=== PATIENT | female | born 1980 | race Caucasian/White ===

== ENCOUNTER 2017-04-26 16:15 | Emergency (ER) | payer OTHER ==
[~2017-04-26] VITALS: Ht 175.3 cm; Wt 24.8 kg
[~2017-04-26 16:15] MED LIST: AMIT100T2 PO; ATV/1 SL; BUSP5TAB59 PO; DABI150C PO; EPP3/2 INJ; FEXO1TAB49 PO; FLVHFA110 INH; GABA-113 PO; HYDR-3785 PO; ONDA4TAB46 PO; TRAM-10 PO; XPNIN INH; ZNTT/150 PO
[2017-04-26 16:23] VITALS: TEMP 36.9; Ht 175.3 cm; Wt 24.8 kg
--- NOTE | 2017-04-26 17:54 | DIAGNOSTIC IMAGING REPORT ---
LEFT VENOUS DOPPLER UPR EXT UNIL HISTORY: Left arm pain. Edema. left arm redness, swelling, hx DVT COMPARISON STUDY: None. FINDINGS: The internal jugular vein is patent. There is normal flow within the subclavian vein. There is normal flow and compressibility within the left axillary, basilic, brachial, radial, ulnar, and visualized cephalic veins. IMPRESSION: No DVT within the upper extremity. The above report was generated using voice recognition software. It may contain grammatical, syntax or spelling errors. Electronically signed by: Phillip Oneill M.D. 04/26/2017 5:53 PM Dictated Date/Time: 04/26/2017 5:53 PM
--- NOTE | 2017-04-26 18:14 | EMERGENCY ROOM VISIT NOTE ---
ED Visit Note First contact with patient: 16:32 I did evaluate and examine this patient myself. I did guide management for the patient. I agree with the APC's assessment as discussed. Please see the APC's dictation for further details. I did independently review the Doppler ultrasound. There is no evidence of DVT. The rash is erythematous and easily blanchable. It is nontender or warm to touch. She was advised follow closely with her doctor for further evaluation.
--- NOTE | 2017-04-26 18:23 | EMERGENCY ROOM VISIT NOTE ---
History First contact with patient: 16:32 Chief Complaint: ARM PAIN Stated Complaint: SWELLING, AND RED STREAKS ON LEFT ARM History of Present Illness The patient is a 36 year old female who presents to the Emergency Room with complaints of swelling and redness of the left arm. The patient states that she first noticed the redness of the arm this morning when waking up. She states there was no pain initially, but as she went through the day she noticed some pain in the arm. She also reports some swelling. She denies any injury or abrasion to the arm. The patient does have a history of blood clots and takes Pradaxa daily due to factor V Leiden deficiency. She denies any recent travel or control use. She does not smoke. She denies any fevers, chest pain or shortness of breath. Review of Systems A complete 10 point review of systems was reviewed with the patient with pertinent positives and negatives as per history of present illness. All else were negative. Past Medical/Surgical History Medical Problems: (1) Acute deep vein thrombosis (DVT) of popliteal vein of left lower extremity (2) Fibromyalgia (3) Negative personal history for kidney stones (4) Pulmonary embolism Surgical Problems: (1) H/O oophorectomy (2) History of spinal fusion (3) Hx of appendectomy Family History Cancer Diabetes mellitus Heart disease Hypertension Negatve family history for kidney stones Social History Smoking Status: Never Smoker Alcohol Use: none Drug Use: none Marital Status: Housing Status: lives with significant other Occupation Status: unemployed, disabled Current/Historical Medications Scheduled Amitriptyline Hcl (Elavil), 50 MG PO QID Buspirone Hcl (Buspirone Hcl), 2 TABS PO TID Dabigatran Etexilate Mesylate (Pradaxa), 150 MG PO BID Gabapentin (Neurontin), 600 MG PO TID Scheduled PRN Epinephrine (Epipen 2-Derek), 0.3 MG INJ UD PRN for ALLERGIC REACTION Fexofenadine Hcl (Daphne Allergy), 180 MG PO DAILY PRN for Allergies Fluticasone Propionate (Flovent Hfa), 2 PUFFS INH BID PRN for Allergies Hydroxyzine Hcl (Atarax), 50 MG PO DAILY PRN for Itching Levalbuterol Tartrate (Xopenex Hfa), 2 PUFFS INH UD PRN for Shortness of Breath Lorazepam (Ativan), 1 MG SL for Anxiety/Insomnia Ondansetron Hcl (Zofran), 4 MG PO Q6H PRN for Nausea Ranitidine (Zantac), 150 MG PO DAILY PRN for ALLERGIC REACTION Tramadol (Ultram), 50 MG PO QID PRN for Pain Allergies Coded Allergies: Doxycycline (Verified Allergy, Unknown, Hives and nausea., 04/26/17) Doxycycline Hyclate Nitrofurantoin (Verified Allergy, Unknown, HIVES, 04/26/17) Sulfa Antibiotics (Verified Allergy, Unknown, ANAPHYLAXIS, 04/26/17) Physical Exam Vital Signs Date Time Temp Pulse Resp B/P (MAP) Pulse Ox O2 Delivery O2 Flow Rate FiO2 04/26/17 18:36 114 18 92/73 99 04/26/17 16:23 36.9 128 20 107/71 97 Room Air Physical Exam VITALS: Vitals are noted on the nurse's note and reviewed by myself. Vital signs stable. GENERAL: This is a 36-year-old female, in no acute distress, nondiaphoretic, well-developed well-nourished. SKIN: There is an erythematous, reticular rash to the medial aspect of the left arm. There is no warmth to touch. There is no significant swelling. The rash is easily blanchable. HEART: Regular rate and rhythm without murmurs gallops or rubs. LUNGS: Clear to auscultation bilaterally without wheezes, rales or rhonchi. MUSCULOSKELETAL: Full range of motion of the left arm. NEURO: Patient was alert and oriented to person place and time. Medical Decision & Procedures ER Provider Diagnostic Interpretation: LEFT VENOUS DOPPLER UPR EXT UNIL HISTORY: Left arm pain. Edema. left arm redness, swelling, hx DVT COMPARISON STUDY: None. FINDINGS: The internal jugular vein is patent. There is normal flow within the subclavian vein. There is normal flow and compressibility within the left axillary, basilic, brachial, radial, ulnar, and visualized cephalic veins. IMPRESSION: No DVT within the upper extremity. Medical Decision Differential diagnosis includes DVT, superficial thrombosis, allergic reaction, contact dermatitis, among others. The patient was evaluated as above. Ultrasound of the left arm was performed and showed no DVT. The cause of the rash is unclear. It is blanchable. It does not appear to be allergic in nature. The patient was instructed to observe the rash and follow up with her primary care provider if it is persistent. The patient was tachycardic throughout today's stay, but this appears to be her baseline based on other visits. She verbalized understanding of my assessment and treatment plan and was discharged home in good condition. The patient was independently evaluated by Dr. Stephens, ED attending physician, who agreed with my assessment and treatment plan. Medication reconciliation: I attest that I have personally reviewed the patient 's current medication list. Blood pressure screening: Patient was found to have normal blood pressure on screening and does not require follow-up. Impression Primary Impression: Left arm pain Departure Information Dispostion Home / Self-Care Condition GOOD Referrals Roberto Han M.D. (PCP) Patient Instructions My [facility] Additional Instructions Ultrasound today was negative for any blood clots in the arm. Elevate the arm for any swelling/pain. For pain control, you can use the following [id number] medicines (if >12 yo): - Regular strength (325mg/tab) Tylenol (acetaminophen) 2 tabs every 4-6 hours as needed. Do not exceed 12 tablets in a 24 hour period. Avoid taking more than 4 grams (4000 mg) of Tylenol per day. This includes any other sources of acetaminophen you may take on a regular basis. - Regular strength (200 mg/tab) Advil (ibuprofen) 1-2 tabs every 4-6 hours as needed. Do not exceed a dose of 3200 mg per day. Return or follow-up with her primary care provider for any worsening of the rash or any other new/concerning symptoms.
[2017-04-26 18:36] VITALS: BP 92/73; PULSE 114; O2SAT 99
== END 2017-04-26 18:37 | disposition home or self-care (01) ==
LOC: C.EDB 16:17 → C.EDD 18:37
DX: M79.602 Pain in left arm (principal); Z86.718 Personal history of other venous thrombosis and embolism; M79.7 Fibromyalgia; Z86.711 Personal history of pulmonary embolism; Z80.9 Family history of malignant neoplasm, unspecified; Z83.3 Family history of diabetes mellitus; Z82.49 Family history of ischemic heart disease and other diseases of the circulatory system; Z79.899 Other long term (current) drug therapy

== ENCOUNTER 2017-05-01 18:27 | Emergency (ER) | payer OTHER ==
[~2017-05-01] VITALS: Ht 175.3 cm; Wt 122.1 kg
[2017-05-01 18:30] VITALS: TEMP 36.9; Ht 175.3 cm; Wt 122.1 kg
[2017-05-01] MEDS ORDERED: HYDR-3126 PO (18:59)
[2017-05-01] MEDS ORDERED: FLVHFA110 INH (18:59)
--- NOTE | 2017-05-01 19:18 | EMERGENCY ROOM VISIT NOTE ---
History Report prepared by [place]cca: Jelly Vick Under the Supervision of: Dr. Ramsey Restrepo D.O. First contact with patient: 18:42 Chief Complaint: NEURO SYMPTOMS Stated Complaint: PART OF TONGUE IS NUMB AND MOVED TO BOTTOM LIP Nursing Triage Summary: pt reports her tongue was numb a couple days ago now her lip is numb. has hx of blood clots. History of Present Illness The patient is a 36 year old female who presents to the Emergency Room with complaints of persistent tongue numbness starting 3 days ago. This morning she noticed that she had numbness in her left lower lip with tingling. She denies any chest pain or SOB. She had a blood clot over 1 year ago and has been on Pradaxa since. She has been taking her medications as directed. She did miss a dose 2 days ago. She notes that she had a root canal 4 days ago. She currently has a temporary filling in. Source of History: patient Onset: 3 days ago Position: tongue Quality: numbness Timing: other (persistent) Associated Symptoms: No chest pain, No SOB Note: Pt reports numbness in left lower lip. Review of Systems See HPI for pertinent positives & negatives. A total of 10 systems reviewed and were otherwise negative. Past Medical & Surgical Medical Problems: (1) Acute deep vein thrombosis (DVT) of popliteal vein of left lower extremity (2) Fibromyalgia (3) Negative personal history for kidney stones (4) Pulmonary embolism Surgical Problems: (1) H/O oophorectomy (2) History of spinal fusion (3) Hx of appendectomy Family History Cancer Diabetes mellitus Heart disease Hypertension Negatve family history for kidney stones Social History Smoking Status: Never Smoker Alcohol Use: none Drug Use: none Marital Status: Housing Status: lives with significant other Occupation Status: unemployed, disabled Current/Historical Medications Scheduled Amitriptyline Hcl (Elavil), 100 MG PO BID Buspirone Hcl (Buspirone Hcl), 2 TABS PO TID Dabigatran Etexilate Mesylate (Pradaxa), 150 MG PO BID Gabapentin (Neurontin), 600 MG PO TID Scheduled PRN Epinephrine (Epipen 2-Derek), 0.3 MG INJ UD PRN for ALLERGIC REACTION Fexofenadine Hcl (Daphne Allergy), 180 MG PO DAILY PRN for Allergies Fluticasone Propionate (Flovent Hfa), 2 PUFFS INH BID PRN for Allergies Fluticasone Propionate (Flovent Hfa), 2 PUFFS INH UD PRN for Shortness of Breath Hydroxyzine Hcl (Atarax), 50 MG PO DAILY PRN for Itching Lorazepam (Ativan), 1 MG SL for Anxiety/Insomnia Ondansetron Hcl (Zofran), 4 MG PO Q6H PRN for Nausea Ranitidine (Zantac), 150 MG PO DAILY PRN for ALLERGIC REACTION Tramadol (Ultram), 50 MG PO QID PRN for Pain Allergies Coded Allergies: Doxycycline (Verified Allergy, Unknown, Hives and nausea., 05/01/17) Doxycycline Hyclate Nitrofurantoin (Verified Allergy, Unknown, HIVES, 05/01/17) Sulfa Antibiotics (Verified Allergy, Unknown, ANAPHYLAXIS, 05/01/17) Physical Exam Vital Signs Date Time Temp Pulse Resp B/P (MAP) Pulse Ox O2 Delivery O2 Flow Rate FiO2 05/01/17 18:30 36.9 140 18 111/79 95 Room Air Physical Exam CONSTITUTIONAL/VITAL SIGNS: Reviewed / noted above. GENERAL: Non-toxic in appearance. INTEGUMENTARY: Warm, dry, and [place]. HEAD: Normocephalic. EYES: without scleral icterus or trauma. ENT/OROPHARYNX: clear and moist. LYMPHADENOPATHY/NECK: Is supple without lymphadenopathy or meningismus. RESPIRATORY: Lungs clear and equal. CARDIOVASCULAR: Tachycardic rate and regular rhythm. GI/ABDOMEN: Soft and nontender. No organomegaly or pulsatile mass. No rebound or guarding. Normal bowel sounds. EXTREMITIES: Warm and well perfused. BACK: No CVA tenderness. NEUROLOGICAL: Intact without focal deficits. PSYCHIATRIC: normal affect. MUSCULOSKELETAL: Normally developed with good muscle tone. Medical Decision & Procedures ECG Indication: tachycardia Rate (beats per minute): 121 Rhythm: sinus tachycardia Findings: no ectopy, other (no acute injury) ED Course 1842: Previous medical records were reviewed. The patient was evaluated in room C2B. A complete history and physical examination was performed. 1918: On reevaluation, the patient is resting comfortably. I discussed the results and findings with the patient. She verbalized agreement of the treatment plan. She was discharged home. Medical Decision Differential includes acute coronary syndrome, myocardial infarction, CVA, TIA, anemia, infection, pneumonia, UTI, pyelonephritis, poor nutrition, dehydration, electrolyte disturbance,hypoglycemia. This is a 36-year-old female who presents to the ED with a chief complaint of a numb or tingling feeling in the left anterior tip of the tongue as well as the left lower aspect of the lip. She states that it involves a small section of skin about 1 cm -2 cm in width from the left lower lip down to an area near her chin about 3 cm in length. The patient reports having had a root canal 2 weeks ago. She is unsure if the symptoms are related to that. She has had the symptoms for about 3 days after drinking some hot coffee. She thought that her symptoms might of been related to that. Because she has a history of DVT, she was concerned about stroke. She is currently taking Pradaxa daily (missed one dose a couple days ago). She does report having had an echocardiogram in the past and denies ever being told she has a PFO or other opening between the left and right side of the heart. The patient denies any other symptoms. The nursing stroke score was 0. The patient was tachycardic on exam. She denies having any chest pains or shortness of breath. She does report that her typical heart rate runs around 100-110. She reports that she is a little anxious and this is likely the reason for her tachycardia. The patient has no additional complaints other than that described. She denies any fevers or recent illness. No facial swelling or dental discomfort. A twelve-lead EKG shows a sinus tach at a rate of 121. There is no acute injury or ectopy. The patient is felt to be stable for discharge. I did not feel the patient is having a stroke. There is no evidence of infection or Aceves's palsy. The patient's going to monitor her symptoms and return should things get worse. HR just prior to discharge was 108. Medication Reconcilliation Current Medication List: was personally reviewed by me Blood Pressure Screening Patient's blood pressure: Normal blood pressure Blood pressure disposition: Did not require urgent referral Impression Primary Impression: Facial paresthesia Additional Impression: Tachycardia Scribe Attestation The scribe's documentation has been prepared under my direction and personally reviewed by me in its entirety. I confirm that the note above accurately reflects all work, treatment, procedures, and medical decision making performed by me. Departure Information Dispostion Home / Self-Care Referrals No Doctor, Assigned (PCP) Patient Instructions My [facility] Additional Instructions Return to the emergency department should you develop worsening or new symptoms. Follow-up with your doctor for further care and evaluation in 1-6 days if symptoms persist/worsen. Return to the emergency department for worsening or new symptoms or any concerns. You have been examined and treated today on an emergency basis only. This is not a substitute for, or an effort to provide, complete comprehensive medical care. It is impossible to recognize and treat all injuries or illnesses in a single emergency department visit. It is therefore important that you follow up closely with your doctor. Call as soon as possible for an appointment. Problem Qualifiers
[2017-05-01 19:31] VITALS: BP 101/78; PULSE 118; O2SAT 96
== END 2017-05-01 19:32 | disposition home or self-care (01) ==
LOC: C.EDB 18:28 → C.EDC 19:32
DX: R20.0 Anesthesia of skin (principal); R00.0 Tachycardia, unspecified; M79.7 Fibromyalgia; Z79.01 Long term (current) use of anticoagulants; Z79.899 Other long term (current) drug therapy; Z98.890 Other specified postprocedural states; Z86.711 Personal history of pulmonary embolism; Z86.718 Personal history of other venous thrombosis and embolism; Z82.49 Family history of ischemic heart disease and other diseases of the circulatory system; Z83.3 Family history of diabetes mellitus

== ENCOUNTER 2018-02-27 22:00 | Emergency (ER) | payer OTHER ==
[~2018-02-27] VITALS: Ht 175.3 cm; Wt 125.4 kg
[~2018-02-27 22:00] MED LIST changes: +EPP3/2 IM; -EPP3/2 INJ; +HYDR-3126 PO; -HYDR-3785 PO; +RANI150T85 PO; -XPNIN INH; -ZNTT/150 PO
[2018-02-27 22:06] VITALS: TEMP 36.8; Ht 175.3 cm; Wt 125.4 kg
[2018-02-27] MEDS ORDERED: ULT50 PO (22:48)
[2018-02-27] MEDS ORDERED: METO50TA17 PO (22:48)
[2018-02-27] MEDS ORDERED: METO50TA16 PO (22:48)
[2018-02-27] MEDS ORDERED: CEPH500C2 PO (22:48)
[2018-02-27] MEDS ORDERED: AMT100 PO (22:48)
[2018-02-27] MEDS ORDERED: LRS10 PO (22:48)
[2018-02-27] MEDS ORDERED: NRN600 PO (22:48)
[2018-02-27] MEDS ORDERED: FLVHFA220 INH (22:53)
[2018-02-27 23:08] LABS: BASO % 0.2 %; BASO ABS # 0.02 K/uL (0-0.2); EOS ABS # 0.09 K/uL (0-0.5); HEMATOCRIT 37.3 % (37-47); HEMOGLOBIN 12.8 g/dL (12.0-16.0); IG# 0.02 K/uL (0.00-0.02); LYMPH % 29.7 %; LYMPH ABS # 2.56 K/uL (1.2-3.4); MEAN CORPUSCULAR HEMOGLOBIN 30.2 pg (25-34); MEAN CORPUSCULAR HGB CONC 34.3 g/dl (32-36); MEAN PLATELET VOLUME 9.3 fL (7.4-10.4); MONO % 4.4 %; MONO ABS # 0.38 K/uL (0.11-0.59); NEUT % 64.5 %; NEUT ABS # 5.56 K/uL (1.4-6.5); PLATELET COUNT 244 K/uL (130-400); RED CELL DISTRIBUTION WIDTH CV 13.8 % (11.5-14.5); RED CELL DISTRIBUTION WIDTH SD 44.3 fL (36.4-46.3); WHITE BLOOD COUNT 8.63 K/uL (4.8-10.8)
[2018-02-27 23:09] LABS: ISTAT CREATININE 1.2 mg/dl (0.6-1.3); ISTAT IONIZED CALCIUM 1.16 mmol/l (1.12-1.32)
[2018-02-27 23:18] LABS: INR 0.9 (0.9-1.1); PTT PATIENT 26.1 SECONDS (21.0-31.0)
[2018-02-27 23:28] LABS: CALCIUM 8.5 mg/dl (8.5-10.1); CREATININE 1.17 mg/dl (0.60-1.20)
[2018-02-28] MEDS ORDERED: KETOROLAC TROMETHAMINE 30 MG/ML VIAL IV STA (02:03)
--- NOTE | 2018-02-28 02:34 | EMERGENCY ROOM VISIT NOTE ---
History Report prepared by Mecca: Jelly Vick Under the Supervision of: Dr. Otto Stephens M.D. First contact with patient: 22:11 Chief Complaint: SHORTNESS OF BREATH Stated Complaint: SOB,CHEST PAINS History of Present Illness The patient is a 37 year old female who presents to the Emergency Room with complaints of persistent SOB starting 2 hours ago. Her SOB started suddenly. She can feel that her heart is beating fast. She is having some left chest pain which started with her SOB. The pain goes up into her neck. She describes the pain as sharp and it does not worsen with deep breaths. She denies any leg swelling, fever, vomiting, or cough. She has a history of factor V Leiden and has had PE and DVT in the past. She was on Pradaxa, but is currently not on any blood thinners. It was stopped by her utility tech. She was on control at the time she had the previous blood clots. She is no longer on control. She denies any chance of . She does not smoke. She went to [place] today, but they stopped multiple times on the way. She is currently on Keflex for a UTI. She has not noticed any swelling or pain to her legs. Source of History: patient Onset: 2 hours ago Position: chest Quality: other (SOB) Timing: other (persistent) Associated Symptoms: + chest pain, No fevers, No cough, No vomiting Note: Pt reports heart beating fast. Review of Systems See HPI for pertinent positives & negatives. A total of 10 systems reviewed and were otherwise negative. Past Medical & Surgical Medical Problems: (1) Acute deep vein thrombosis (DVT) of popliteal vein of left lower extremity (2) Fibromyalgia (3) Negative personal history for kidney stones (4) Pulmonary embolism Surgical Problems: (1) H/O oophorectomy (2) History of spinal fusion (3) Hx of appendectomy Family History Cancer Diabetes mellitus Heart disease Hypertension Negatve family history for kidney stones Social History Smoking Status: Never Smoker Alcohol Use: none Drug Use: none Marital Status: Housing Status: lives with significant other Occupation Status: disabled Current/Historical Medications Scheduled Amitriptyline HCl (Amitriptyline HCl), 200 MG PO HS Cephalexin Monohydrate (Keflex), 500 MG PO QID Gabapentin (Gabapentin), 600 MG PO TID Metoprolol Tartrate (Metoprolol Tartrate), 25 MG PO QPM Metoprolol Tartrate (Lopressor) (Lopressor), 50 MG PO QAM Scheduled PRN Baclofen (Baclofen), 10 MG PO HS PRN for Muscle Spasm Epinephrine (Epipen 2-Derek), 0.3 MG IM UD PRN for ALLERGIC REACTION Fexofenadine Hcl (Daphne Allergy), 180 MG PO DAILY PRN for Allergy Symptom Fluticasone Propionate (Flovent Hfa), 2 PUFFS INH BID PRN for Shortness of Breath Hydroxyzine Hcl (Atarax), 50 MG PO Q8H PRN for Itching Lorazepam (Ativan), 1 MG SL DAILY PRN for Anxiety/Insomnia Ranitidine (Zantac), 150 MG PO DAILY PRN for ALLERGIC REACTION Tramadol HCl (Tramadol HCl), 50 MG PO TID PRN for Pain Allergies Coded Allergies: Doxycycline (Verified Allergy, Unknown, Hives and nausea., 05/01/17) Doxycycline Hyclate Nitrofurantoin (Verified Allergy, Unknown, HIVES, 05/01/17) Sulfa Antibiotics (Verified Allergy, Unknown, ANAPHYLAXIS, 05/01/17) Physical Exam Vital Signs Date Time Temp Pulse Resp B/P (MAP) Pulse Ox O2 Delivery O2 Flow Rate FiO2 02/28/18 02:21 112 02/28/18 02:11 107 18 100/71 96 Room Air 02/27/18 23:46 106 18 104/67 99 Room Air 02/27/18 22:22 94 Room Air 02/27/18 22:20 120 02/27/18 22:06 36.8 121 18 116/84 98 Room Air Physical Exam Constitutional: Vital signs reviewed. Eyes: Pupils are equal round reactive to light. Conjunctiva are noninjected. ENT: Pharynx is clear without erythema or exudate. Mucous membranes are moist. Neck supple without meningeal signs. Respiratory: Clear to auscultation bilaterally. Breath sounds are equal bilaterally. Cardiovascular: Tachycardic, heart rate 120. Regular rhythm. No rubs or gallops. GI: Soft, nondistended and nontender. Bowel sounds are present. Musculoskeletal: No peripheral edema. No lower extremity tenderness. Integumentary: No cyanosis. Neurological: The patient is awake and alert. No focal deficits. Psychiatric: Normal affect. Medical Decision & Procedures ER Provider Diagnostic Interpretation: Radiology results as stated below per my review and the [facility] radiologist's interpretation: CTA Chest: Impression: Evaluation is degraded by extensive streak artifact related the posterior spinal hardware. Within the limitations of this examination, no large central pulmonary embolus is identified. Right upper lobe punctate calcified granuloma. Small hiatal hernia. Scoliosis of the thoracolumbar spine is seen with posterior hardware. US Venous Bilateral Lower Extremities: No evidence of deep vein thrombosis in bilateral lower extremities. Laboratory Results 02/27/18 22:45 Red Blood Count 4.24, Mean Corpuscular Volume 88.0, Mean Corpuscular Hemoglobin 30.2, Mean Corpuscular Hemoglobin Concent 34.3, Mean Platelet Volume 9.3, Neutrophils (%) (Auto) 64.5, Lymphocytes (%) (Auto) 29.7, Monocytes (%) (Auto) 4.4, Eosinophils (%) (Auto) 1.0, Basophils (%) (Auto) 0.2, Neutrophils # (Auto) 5.56, Lymphocytes # (Auto) 2.56, Monocytes # (Auto) 0.38, Eosinophils # (Auto) 0.09, Basophils # (Auto) 0.02 02/27/18 22:45 Test 02/27/18 00:00 02/27/18 22:45 02/27/18 22:53 02/27/18 22:56 Urine Color YELLOW Urine Appearance CLEAR (CLEAR) Urine pH 5.5 (4.5-7.5) Urine Specific [place] 1.017 (1.000-1.030) Urine Protein NEG (NEG) Urine Glucose (UA) NEG (NEG) Urine Ketones NEG (NEG) Urine Occult Blood NEG (NEG) Urine Nitrite NEG (NEG) Urine Bilirubin NEG (NEG) Urine Urobilinogen NEG (NEG) Urine Leukocyte Esterase SMALL (NEG) Urine WBC (Auto) 10-30 /hpf (0-5) Urine RBC (Auto) 0-4 /hpf (0-4) Urine Hyaline Casts (Auto) 0 /lpf (0-5) Urine Epithelial Cells (Auto) >30 /lpf (0-5) Urine Bacteria (Auto) NEG (NEG) Urine Renal Epithelial Cells /lpf (0-5) Urine Test NEG (NEG) White Blood Count 8.63 K/uL (4.8-10.8) Red Blood Count 4.24 M/uL (4.2-5.4) Hemoglobin 12.8 g/dL (12.0-16.0) Hematocrit 37.3 % (37-47) Mean Corpuscular Volume 88.0 fL (80-100) Mean Corpuscular Hemoglobin 30.2 pg (25-34) Mean Corpuscular Hemoglobin Concent 34.3 g/dl (32-36) Platelet Count 244 K/uL (130-400) Mean Platelet Volume 9.3 fL (7.4-10.4) Neutrophils (%) (Auto) 64.5 % Lymphocytes (%) (Auto) 29.7 % Monocytes (%) (Auto) 4.4 % Eosinophils (%) (Auto) 1.0 % Basophils (%) (Auto) 0.2 % Neutrophils # (Auto) 5.56 K/uL (1.4-6.5) Lymphocytes # (Auto) 2.56 K/uL (1.2-3.4) Monocytes # (Auto) 0.38 K/uL (0.11-0.59) Eosinophils # (Auto) 0.09 K/uL (0-0.5) Basophils # (Auto) 0.02 K/uL (0-0.2) RDW Standard Deviation 44.3 fL (36.4-46.3) RDW Coefficient of Variation 13.8 % (11.5-14.5) Immature Granulocyte % (Auto) 0.2 % Immature Granulocyte # (Auto) 0.02 K/uL (0.00-0.02) Prothrombin Time 9.8 SECONDS (9.0-12.0) Prothromb Time International Ratio 0.9 (0.9-1.1) Activated Partial Thromboplast Time 26.1 SECONDS (21.0-31.0) Partial Thromboplastin Ratio 1.0 Est Creatinine Clear Calc Drug Dose 93.4 ml/min Estimated GFR () 68.9 Estimated GFR (Non- 59.5 BUN/Creatinine Ratio 11.1 (10-20) Calcium Level 8.5 mg/dl (8.5-10.1) Bedside D-Dimer > 450 ng/mlFEU (0-450) Bedside Troponin I < 0.030 ng/ml (0-0.045) Bedside Hemoglobin 12.6 g/dl (12.0-16.0) Bedside Hematocrit 37 % (37-47) Bedside Sodium 139 mEq/L (135-144) Bedside Potassium 4.0 mEq/L (3.3-5.0) Bedside Chloride 103 mEq/L (101-112) Bedside Total CO2 24 mEq/l (24-31) Anion Gap 18.0 mmol/L (16-25) Bedside Blood Urea Nitrogen 13 mg/dl (7-18) Bedside Creatinine 1.2 mg/dl (0.6-1.3) Bedside Glucose (other) 102 mg/dl (70-99) Bedside Ionized Calcium (Yann) 1.16 mmol/l (1.12-1.32) Laboratory results as reviewed by me. Medications Administered Medications (Trade) Dose Ordered Sig/David Route Start Time Stop Time Status Last Admin Dose Admin Ketorolac Tromethamine (Toradol Inj) 10 mg NOW STAT IV 02/28/18 02:03 02/28/18 02:04 DC 02/28/18 02:11 10 MG ECG Per My Interpretation Indication: chest pain Rate (beats per minute): 120 Rhythm: sinus tachycardia Findings: Q waves (lead 3), other (no PVC) ED Course 2213: The patient was evaluated in room B11B. A complete history and physical exam was performed. 0027: I reevaluated the patient. Her pain is improved. Heart rate is 105. 0200: I reevaluated the patient. She currently has some chest pain. She says she is normally tachycardic and takes metoprolol. 0203: Toradol Inj 10 mg IV. 0229: Upon reevaluation, the patient appeared to have improvement of her symptoms. I discussed tonight's findings with her. She verbalized agreement of the treatment plan. She was discharged home. Medical Decision This is a 37-year-old female presents with chest pain and shortness of breath. Differential diagnosis includes pulmonary embolism, pneumothorax, pneumonia, pleurisy, MD, anxiety. I did perform a limited focused review of portions of the patient's old chart on the electronic medical record. The patient has had no recent pertinent visits to this hospital. I did evaluate the patient as noted above. IV access was established. The patient was placed on a continuous director of cardiac cath lab. I did order and personally review the patient's 12-lead EKG as described above. I did order and review the patient's blood work as noted in the electronic medical record. Troponin is negative. D-dimer is elevated. I did order a stat CT of the chest. I did review the images myself as well as the radiology report as described above. This did not show any evidence of pulmonary embolism. There was some streak artifact noted from her spinal hardware. There is also a granuloma. Because of her history I did order a Doppler of the lower extremities. This did not show any evidence of DVT. I did treat the patient with Toradol IV. The patient did state that she felt better after Toradol. She remained tachycardic but states that she has a history of tachycardia and takes metoprolol for this. She states that normally at nighttime her heart rate is somewhere between 90 and 100. I did discuss the test results with her. I did recommend follow-up within 24 hours with her doctor. She was discharged in good condition. Medication Reconcilliation Current Medication List: was personally reviewed by me Blood Pressure Screening Patient's blood pressure: Normal blood pressure Blood pressure disposition: Did not require urgent referral Impression Primary Impression: Acute chest pain Scribe Attestation The scribe's documentation has been prepared under my direct and personally reviewed by me in its entirety. I confirm that the note above accurately reflects all work, treatment, procedures, and medical decision making performed by me. Departure Information Dispostion Home / Self-Care Referrals Roberto Han M.D. (PCP) Forms HOME CARE DOCUMENTATION FORM, IMPORTANT VISIT INFORMATION Patient Instructions Chest Pain - [facility], [facility] Additional Instructions You have been examined and treated today on an emergency basis only. This is not a substitute for, or an effort to provide, complete comprehensive medical care. It is impossible to recognize and treat all injuries or illnesses in a single emergency department visit. It is therefore important that you follow up closely with your physician within 24 hours. Call as soon as possible for an appointment. Return for worsening symptoms or if you develop fever, vomiting, or any other concerning symptoms.
[2018-02-28 02:41] VITALS: BP 109/71; PULSE 111; O2SAT 95
--- NOTE | 2018-02-28 07:08 | DIAGNOSTIC IMAGING REPORT ---
BILATERAL LOWER EXTREMITY VENOUS DOPPLER HISTORY: Leg swelling. COMPARISON STUDY: Venous Doppler 12/17/2015. FINDINGS: There is normal compressibility, flow, and augmentation within the bilateral lower extremity deep venous systems. IMPRESSION: No DVT within the right or left lower extremity. Electronically signed by: Matt Biggs M.D. 02/28/2018 7:07 AM Dictated Date/Time: 02/28/2018 7:06 AM
--- NOTE | 2018-02-28 08:11 | DIAGNOSTIC IMAGING REPORT ---
CHEST CTA for PULMONARY ARTERIES CT DOSE: 606.27 mGy.cm HISTORY: Left-sided chest pain. Short of breath. TECHNIQUE: Multiaxial CT images of the chest were performed following the intravenous administration of contrast to evaluate the pulmonary arteries. Maximal intensity projection images were also obtained. A dose lowering technique was utilized adhering to the principles of ALARA. COMPARISON STUDY: Chest CTA 12/17/2015. FINDINGS: Scoliosis with thoracic spinal rods are again noted. Normal caliber thoracic aorta with no evidence for dissection. The heart remains top normal in size. Moderate hiatus hernia. Cholecystectomy. The visualized liver and spleen are unremarkable. No mediastinal or hilar lymphadenopathy. The main pulmonary arteries are patent. The majority of the segmental and subsegmental pulmonary arteries are not well evaluated due to the respiratory motion artifact and streak artifact from the spinal hardware. No pneumothorax. No pleural effusions. No focal lung consolidations to suggest pneumonia. IMPRESSION: 1. No pulmonary emboli. There is suboptimal evaluation of the segmental and subsegmental pulmonary arteries due to the respiratory motion and streak artifact from the scoliosis hardware. . 2. Moderate hiatus hernia. 3. Cholecystectomy. Electronically signed by: Matt Biggs M.D. 02/28/2018 8:09 AM Dictated Date/Time: 02/28/2018 7:41 AM
== END 2018-02-28 02:42 | disposition home or self-care (01) ==
LOC: C.EDB 22:01
DX: R07.9 Chest pain, unspecified (principal); R06.02 Shortness of breath; M79.7 Fibromyalgia; Z79.899 Other long term (current) drug therapy; Z86.711 Personal history of pulmonary embolism; Z86.718 Personal history of other venous thrombosis and embolism; Z82.49 Family history of ischemic heart disease and other diseases of the circulatory system; Z83.3 Family history of diabetes mellitus; Z86.2 Personal history of diseases of the blood and blood-forming organs and certain disorders involving the immune mechanism

== ENCOUNTER 2021-03-27 11:24 | Observation (INO) ==
[2021-03-27] MEDS ORDERED: SODIUM CHLORIDE 0.9% 1000ML 1,000 ML IV SCH (12:25)
--- NOTE | 2021-03-27 12:36 | Emergency Department Note ---
History of Present Illness General Chief complaint: Abdominal Pain Stated complaint: ABDOMINAL PAIN/NAUSEA Time Seen by Provider: 03/27/21 12:01 Source: patient Mode of arrival: ambulatory Limitations: no limitations History of Present Illness Provider complaint: Abdominal pain Onset (ago): day(s) 1 Location: abdomen Radiation: back Severity: severe Pain Consistency: + constant Maximum Pain Intensity: 9 Current Pain Intensity: 9 Quality: + constant Relieved By: + none Exacerbated By: + movement Associated symptoms: + loss of appetite, + malaise and + nausea/vomiting Treatments prior to arrival: none This is a 40-year-old female presents emergency department complaining of lower abdominal pain. Patient states pain began yesterday, and she thought she could sleep overnight it would feel better in the morning. She states pain is slightly similar to a recent evaluation for an ovarian cyst. Patient is already had a prior right nephrectomy, and was found to have a large left hemorrhagic ovarian cyst. Patient denies any recent change in activity. States she has been dealing with constipation over the last 6 weeks, has been trying to eat a street light cleaner diet and is intermittently using enemas. She states she and her tried an enema last night with some successful passage of stool, however did this did not help her pain. She denies any recent sick contact or exposure to coronavirus. Patient denies any abnormal vaginal bleeding or discharge. She denies chance for stating that her had a vasectomy 7 years ago. She states she has had increased urinary frequency and urgency over the last 2 weeks. She did go to her family doctor last week regarding this, states they checked her urine and was told she did not have an infection. Patient states she has previously had a kidney infection and some of this does feel si milar. States the pain in her back is more of an aching. Patient denies fevers. States her heart rate typically is very elevated as she has a history of tachycardia and takes metoprolol daily. She states she follows with a branch general manager in [place]. Patient states he has had nausea, no vomiting. Patient is scheduled to see GI the beginning of April to undergo colonoscopy due to the recent issues with constipation. No history in her or family of IBS or IBD. Patient did follow-up with tower air traffic control specialist last week to recheck the cyst. Pt seen during a time of high acuity and national emergency pandemic while wearing PPE. Home Medications Medication Instructions Recorded Confirmed Type metoprolol tartrate 50 mg PO QAM 02/05/21 03/27/21 History ondansetron 4 mg PO Q8H PRN #30 tab 02/05/21 03/27/21 Rx oxycodone 5 - 10 mg PO Q6H PRN #12 tab 03/12/21 03/27/21 Rx gabapentin 600 mg PO TID 03/27/21 03/27/21 History norethindrone (contraceptive) 0.25 mg PO DAILY 03/27/21 03/27/21 History [Incassia] sertraline 50 mg PO DAILY 03/27/21 03/27/21 History Allergies Allergy/AdvReac Type Severity Reaction Status Date / Time doxycycline Allergy Unknown Hives and Verified 02/16/21 14:48 nausea. nitrofurantoin Allergy Unknown HIVES Verified 02/16/21 14:48 Sulfa (Sulfonamide Allergy Unknown ANAPHYLAXIS Verified 02/16/21 14:48 Antibiotics) amoxicillin Allergy Rash Unverified 03/27/21 17:12 ciprofloxacin [From Cipro] Allergy Rash Unverified 03/27/21 17:12 haloperidol [From Haldol] Allergy Rash Unverified 03/27/21 17:12 levofloxacin [From Levaquin] Allergy Hives Unverified 03/27/21 17:12 prochlorperazine Allergy Hives Unverified 03/27/21 17:12 [From Compazine] sulfamethoxazole Allergy Anaphylaxis Unverified 03/27/21 17:12 [From Bactrim] trimethoprim [From Bactrim] Allergy Anaphylaxis Unverified 03/27/21 17:12 Past Med/Surg History Medical History Acute deep vein thrombosis (DVT) of popliteal vein of left lower extremity Factor V Leiden mutation Fibromyalgia Left ovarian cyst No pertinent family history Pulmonary emboli Surgical History History of cholecystectomy History of right oophorectomy History of spinal fusion History of umbilical hernia repair Hx of appendectomy Social History Smoking Status: Former smoker Tobacco Type: Cigarettes Hx Alcohol Use: No Hx Substance Use: Yes Last Used Substance: Days (ago) Last Used Substance Other:: last used in january Substance Use Type Other:: medical marijuana Preferred Language: Bengali Communication Ability: Effective Beliefs That Will Affect Care: None marital status: Current Living Situation: Spouse current occupational status: unemployed and disabled Other Information That Helps Us Care for You: No Feels Safe at Home: Yes Safety Concerns: Feels Safe At This Time Assistive Devices: None Review of Systems See HPI for pertinent positives & negatives. and A total of 10 systems reviewed and were otherwise negative Physical Exam Vital Signs Vital Signs - 24 hr 03/27/21 20:00 03/27/21 20:30 03/27/21 21:00 Pulse Rate 98 H 100 H 94 H Pulse Rate from SpO2 Sensor 97 H 102 H 93 H Respiratory Rate 12 20 18 Blood Pressure 112/74 123/76 115/73 Blood Pressure Mean 86 91 87 Pulse Oximetry 98 98 98 GENERAL: alert, well appearing, well nourished, no distress, non-toxic EYE EXAM: normal conjunctiva, PERRL and EOM's grossly intact OROPHARYNX: no exudate, no erythema, lips, buccal mucosa, and tongue normal and mucous membranes are moist NECK: supple, no nuchal rigidity, no adenopathy, non-tender LUNGS: Clear to auscultation. Normal chest wall mechanics, no w/r/r HEART: no murmurs, S1 normal and S2 normal ABDOMEN: abdomen soft, non-tender, normo-active bowel sounds, no masses, no rebound or guarding. BACK: Back is symmetrical on inspection and there is no deformity, no midline tenderness, no CVA tenderness. SKIN: no rashes and no bruising UPPER EXTREMITIES: upper extremities are grossly normal. FROM, nml pulses b/l. LOWER EXTREMITIES: No pitting edema. FROM, nml pulses b/l. NEURO EXAM: Normal sensorium, cranial nerves II-XII grossly intact, normal speech, no gross weakness of arms, no gross weakness of legs. Gross sensation intact. Course Course 1502: Patient updated on additional results. Discussed utility of additional ultrasound imaging. Patient states she is still having pain. Is tearful at bedside. Is in agreement with plan for ultrasound. 1711: Significant bedside conversation regarding additional results, possible differential diagnosis, need for additional follow-up. Patient began to verbalize that the ongoing abdominal pain of unclear etiology is making her anxiety worse. She did recently start Zoloft. She does have a prior history of anxiety and depression. No prior suicide attempt. Patient admits to passive thoughts of SI due to her concern for dealing with the pain as she feels her anselmo n is not well controlled and there is no clear etiology of her pain. Patient was previously prescribed OxyIR which she feels did not help. She did try dose this morning prior to arrival. Patient does not routinely see any outpatient mental health providers. 1835: Case discussed with hospitalist. Administered Medications Acetaminophen (Acetaminophen 325 Mg Tab) 650 mg PO Q4H PRN PRN Reason: pain/fever Stop: 04/26/21 22:31 Last Admin: 03/28/21 13:54 Dose: 650 mg Documented by: [id number] Admin: 03/28/21 06:26 Dose: 650 mg Documented by: [id number] Admin: 03/27/21 23:06 Dose: 650 mg Documented by: [id number] Enoxaparin Sodium (Enoxaparin Inj 40 Mg/0.4 Ml Syr) 40 mg SQ Q12H OFELIA Stop: 04/26/21 22:59 Last Admin: 03/28/21 10:24 Dose: 40 mg Documented by: [id number] Admin: 03/27/21 23:43 Dose: 40 mg Documented by: [id number] Gabapentin (Gabapentin 600 Mg Tab) 600 mg PO TID OFELIA Stop: 04/26/21 22:31 Last Admin: 03/28/21 13:54 Dose: 600 mg Documented by: [id number] Admin: 03/28/21 08:04 Dose: 600 mg Documented by: [id number] Admin: 03/27/21 23:42 Dose: 600 mg Documented by: [id number] Metoprolol Tartrate (Metoprolol Tartrate 50 Mg Tab) 50 mg PO QAM OFELIA Stop: 04/27/21 08:59 Last Admin: 03/28/21 08:04 Dose: 50 mg Documented by: [id number] Ondansetron HCl (Ondansetron Inj 2 Mg/Ml 2 Ml Vial) 4 mg IV Q6H PRN PRN Reason: Nausea Stop: 04/26/21 22:31 Last Admin: 03/28/21 16:23 Dose: 4 mg Documented by: [id number] Admin: 03/28/21 08:03 Dose: 4 mg Documented by: [id number] Admin: 03/28/21 00:50 Dose: 4 mg Documented by: [id number] Psyllium Hydrophilic Mucilloid (Psyllium 58.6% Powder Packet) 1 pkt PO QAM OFELIA Stop: 04/27/21 15:29 Last Admin: 03/28/21 16:23 Dose: 1 pkt Documented by: [id number] Sertraline HCl (Sertraline Hcl 50 Mg Tablet) 50 mg PO DAILY OFELIA Stop: 04/27/21 08:59 Last Admin: 03/28/21 10:23 Dose: 50 mg Documented by: [id number] Discontinued Medications Dicyclomine HCl (Dicyclomine Hcl 10 Mg Cap) 10 mg PO NOW ONE Stop: 03/27/21 14:52 Last Admin: 03/27/21 15:19 Dose: 10 mg Documented by: [id number] Fentanyl Citrate (Fentanyl Citrate 100 Mcg/2 Ml Vial) 50 mcg IV NOW STA Stop: 03/27/21 14:26 Last Admin: 03/27/21 14:33 Dose: 50 mcg Documented by: [id number] Sodium Chloride (Nss 1000ml) 1,000 mls @ 999 mls/hr IV .Q1H1M OFELIA Stop: 03/27/21 13:25 Last Infusion: 03/27/21 13:36 Dose: 999 mls/hr Documented by: [id number] Admin: 03/27/21 12:35 Dose: 999 mls/hr Documented by: [id number] Acetaminophen (Ofirmev) 1,000 mg in 100 mls @ 400 mls/hr IV NOW STA Stop: 03/27/21 13:13 Last Infusion: 03/27/21 13:37 Dose: 400 mls/hr Documented by: [id number] Admin: 03/27/21 13:21 Dose: 400 mls/hr Documented by: [id number] Sodium Chloride (Nss 1000ml) 1,000 mls @ 999 mls/hr IV .Q1H1M ONE Stop: 03/27/21 15:25 Last Infusion: 03/27/21 15:45 Dose: 999 mls/hr Documented by: [id number] Admin: 03/27/21 14:33 Dose: 999 mls/hr Documented by: [id number] Lorazepam (Ativan) 0.5 mg in 1 mls @ 1 mls/min IV NOW STA Stop: 03/27/21 19:08 Last Admin: 03/27/21 19:15 Dose: 1 mls/min Documented by: [id number] Ioversol (Optiray 320 100ml) 94 ml IV ONCE ONE Stop: 03/27/21 14:10 Last Admin: 03/27/21 14:09 Dose: 94 ml Documented by: [id number] Ketorolac Tromethamine (Ketorolac Tromethamine 15 Mg/Ml Vial) 10 mg IV NOW ONE Stop: 03/27/21 14:52 Last Admin: 03/27/21 15:19 Dose: 10 mg Documented by: [id number] Metoclopramide HCl (Metoclopramide Hcl Inj 5 Mg/Ml 2 Ml Vial) 5 mg IV ONE ONE Stop: 03/27/21 17:27 Last Admin: 03/27/21 17:34 Dose: 5 mg Documented by: [id number] Ondansetron HCl (Ondansetron Inj 2 Mg/Ml 2 Ml Vial) 4 mg IV NOW STA Stop: 03/27/21 13:00 Last Admin: 03/27/21 13:22 Dose: 4 mg Documented by: [id number] Oxycodone/Acetaminophen (Oxycodone/Acetaminophen 5mg/325mg Tab) 1 tab PO NOW STA Stop: 03/27/21 17:27 Last Admin: 03/27/21 17:34 Dose: 1 tab Documented by: [id number] Polyethylene Glycol (Polyethylene (Miralax) 17 Gm Pack) 34 gm PO ONE ONE Stop: 03/27/21 21:07 Last Admin: 03/27/21 21:21 Dose: 34 gm Documented by: [id number] Sumatriptan Succinate (Sumatriptan Succinate 6 Mg/0.5 Ml Vial) 6 mg SQ NOW STA Stop: 03/27/21 21:07 Last Admin: 03/27/21 21:22 Dose: 6 mg Documented by: [id number] Sumatriptan Succinate (Sumatriptan Succinate 6 Mg/0.5 Ml Vial) 6 mg SQ NOW STA Stop: 03/28/21 02:17 Last Admin: 03/28/21 02:51 Dose: 6 mg Documented by: [id number] Medical Decision Making Differential Diagnosis Differential diagnoses includes but is not limited to gastritis, peptic ulcer disease, GERD, gallbladder disease, pancreatitis, small bowel obstruction, acute coronary syndrome, pericarditis, ischemic bowel, irritable bowel disease, irritable bowel syndrome, appendicitis, diverticulitis, malignancy, hernia, urinary tract infection, torsion, [/ectopic (if female)], perforation, trauma, infectious. Medical Records Attestation: I reviewed the patient's medical records. Home Medications Current Medication List: was personally reviewed by me Laboratory Data Attestation: I reviewed the patient's lab results. Result diagrams: 03/28/21 05:57 03/28/21 07:05 Lab Results 03/27/21 03/27/21 03/27/21 Range/Units 11:57 12:09 12:09 WBC 8.66 (4.8-10.8) K/uL RBC 4.55 (4.2-5.4) M/uL Hgb 13.8 (12.0-16.0) g/dL Hct 40.8 (37-47) % MCV 89.7 (80-100) fL MCH 30.3 (25-34) pg MCHC 33.8 (32-36) g/dL RDW Std Deviation 48.4 H (36.4-46.3) fL RDW Coeff of Kenneth 14.7 H (11.5-14.5) % Plt Count 321 (130-400) K/uL MPV 10.7 H (7.4-10.4) fL Immature Gran % (Auto) 0.1 % Neut % (Auto) 88.6 % Lymph % (Auto) 8.4 % [place] % (Auto) 2.7 % Eos % (Auto) 0.1 % Baso % (Auto) 0.1 % Neut # (Auto) 7.67 H (1.4-6.5) K/uL Lymph # (Auto) 0.73 L (1.2-3.4) K/uL [place] # (Auto) 0.23 (0.11-0.59) K/uL Eos # (Auto) 0.01 (0-0.5) K/uL Baso # (Auto) 0.01 (0-0.2) K/uL Immature Gran # (Auto) 0.01 (0.00-0.02) K/uL Sodium 138 (136-145) mmol/L Potassium 3.6 (3.5-5.1) mmol/L Chloride 108 H (98-107) mmol/L Carbon Dioxide 19 L (21-32) mmol/L Anion Gap 10.0 (3-11) BUN 7 (7-18) mg/dl Creatinine 0.69 (0.6-1.2) mg/dl Est Cr Clr Drug Dosing Not Reportable Est GFR ( Amer) 126.2 ml/min Est GFR (Non-Af Amer) 108.9 ml/min BUN/Creatinine Ratio 9.6 L (10-20) Glucose 106 H (70-99) mg/dl Calcium 9.0 (8.5-10.1) mg/dl Total Bilirubin 0.4 (0.2-1) mg/dl AST 17 (15-37) U/L ALT 30 (12-78) U/L Alkaline Phosphatase 69 (45-117) U/L Total Protein 7.6 (6.4-8.2) gm/dl Albumin 3.9 (3.4-5.0) gm/dl Globulin 3.7 (2.5-4.0) gm/dl Albumin/Globulin Ratio 1.1 (0.9-2) Lipase 206 (73-393) U/L HCG, Qual (Negative) Urine Color Dark Yellow Urine Appearance Clear (Clear) Urine pH 6.0 (4.5-7.5) Ur Specific Warren 1.023 (1.000-1.030) Urine Protein Negative (Negative) Urine Glucose (UA) Negative (Negative) Urine Ketones 2+ H (Negative) Urine Blood Negative (Negative) Urine Nitrite Negative (Negative) Urine Bilirubin Negative (Negative) Urine Urobilinogen Negative (Negative) Ur Leukocyte Esterase Negative (Negative) COVID-19 Eval Order SARS-CoV-2 (PCR) (Negative) 03/27/21 03/27/21 03/27/21 Range/Units 12:09 19:19 19:19 WBC (4.8-10.8) K/uL RBC (4.2-5.4) M/uL Hgb (12.0-16.0) g/dL Hct (37-47) % MCV (80-100) fL MCH (25-34) pg MCHC (32-36) g/dL RDW Std Deviation (36.4-46.3) fL RDW Coeff of Kenneth (11.5-14.5) % Plt Count (130-400) K/uL MPV (7.4-10.4) fL Immature Gran % (Auto) % Neut % (Auto) % Lymph % (Auto) % [place] % (Auto) % Eos % (Auto) % Baso % (Auto) % Neut # (Auto) (1.4-6.5) K/uL Lymph # (Auto) (1.2-3.4) K/uL [place] # (Auto) (0.11-0.59) K/uL Eos # (Auto) (0-0.5) K/uL Baso # (Auto) (0-0.2) K/uL Immature Gran # (Auto) (0.00-0.02) K/uL Sodium (136-145) mmol/L Potassium (3.5-5.1) mmol/L Chloride (98-107) mmol/L Carbon Dioxide (21-32) mmol/L Anion Gap (3-11) BUN (7-18) mg/dl Creatinine (0.6-1.2) mg/dl Est Cr Clr Drug Dosing Est GFR ( Amer) ml/min Est GFR (Non-Af Amer) ml/min BUN/Creatinine Ratio (10-20) Glucose (70-99) mg/dl Calcium (8.5-10.1) mg/dl Total Bilirubin (0.2-1) mg/dl AST (15-37) U/L ALT (12-78) U/L Alkaline Phosphatase (45-117) U/L Total Protein (6.4-8.2) gm/dl Albumin (3.4-5.0) gm/dl Globulin (2.5-4.0) gm/dl Albumin/Globulin Ratio (0.9-2) Lipase (73-393) U/L HCG, Qual Negative (Negative) Urine Color Urine Appearance (Clear) Urine pH (4.5-7.5) Ur Specific [place] (1.000-1.030) Urine Protein (Negative) Urine Glucose (UA) (Negative) Urine Ketones (Negative) Urine Blood (Negative) Urine Nitrite (Negative) Urine Bilirubin (Negative) Urine Urobilinogen (Negative) Ur Leukocyte Esterase (Negative) COVID-19 Eval Order Covid19 at [facility] SARS-CoV-2 (PCR) NEGATIVE (Negative) Imaging Data Radiologist's Impression: Abdomen/Pelvis CT 03/27/21 13:53 CT SCAN OF THE ABDOMEN AND PELVIS WITH IV CONTRAST CLINICAL HISTORY: Lower abdominal pain. COMPARISON STUDY: Abdominal CT dated 02/16/2021. TECHNIQUE: Following the IV administration of 94 cc of Optiray 320, CT scan of the abdomen and pelvis is performed from the lung bases to the proximal femora. Images are reviewed in the axial, sagittal, and coronal planes. IV contrast was administered without complication. A dose lowering technique was utilized adhering to the principles of ALARA. The examination is degraded by streak artifact from metallic spinal rods. CT DOSE: 532.57 mGy.cm FINDINGS: Lung bases: The heart is normal in size and without pericardial effusion. Linear atelectasis is noted at the left lung base. The lung bases are otherwise clear. There is a small hiatal hernia. Liver: Evaluation of the liver is degraded by streak artifact. The contrast- enhanced liver is normal in size, contour, and attenuation. There is minimal central intrahepatic biliary ductal dilatation. The hepatic veins and portal veins are patent. A 1.4 cm presumed hemangioma in the right lobe is unchanged. Gallbladder: Surgically absent noting clips in the gallbladder fossa. Spleen: Normal in size and attenuation. Pancreas: Unremarkable. Adrenal glands: Unremarkable. Kidneys: Evaluation of the kidneys is significantly degraded by streak artifact. The contrast enhanced kidneys are normal in size and without hydronephrosis. The kidneys enhance symmetrically. Abdominal vasculature: The abdominal aorta is normal in course and caliber. Bowel: There is no bowel obstruction. Mild fecal retention is seen throughout the colon. The appendix is not identified and reported surgically absent. Peritoneum: There is no intraperitoneal free air or abdominal ascites. There is a small fat-containing umbilical hernia. Lymphadenopathy: None. Pelvic viscera: The bladder wall appears circumferentially thickened and there is mild pericystic infiltration. The uterus and adnexa are normal as visualized noting left ovarian follicles. Skeletal structures: No lytic or blastic lesions are seen. There is thoracolumbar scoliosis with postoperative change and spinal rods in place. A bone graft donor site is noted in the right ilium. IMPRESSION: 1. Question cystitis. Correlation with clinical findings and urinalysis. 2. Additional findings as above. ACT 112: Negative or not required by law. Electronically signed by: Joselito Dunn M.D. 03/27/2021 2:24 PM Pelvis Ultrasound 03/27/21 15:12 EXAMINATION: PELVIC ULTRASOUND CLINICAL HISTORY: lower abd pain, hx cysts COMPARISON STUDY: March 12, 2021 FINDINGS: The uterus measured 8.4 x 2.3 x 4.8 cm in size.. The endometrial stripe measured 0.8 cm. The right ovary was not seen, reported surgically absent. . The left ovary measured 4.7 x 1.8 x 2.8 cm. There is 2.3 x 1.7 x 1.5 cm complex cystic lesion which is not significantly changed in size however shows interval decrease of partially solid septated component. There is no ultrasonographic evidence of ovarian torsion. It should be noted that ovarian torsion can be present with normal Doppler ultrasonographic findings. There was no evidence of pathologic free pelvic fluid. IMPRESSION: 1. Stable size complex cystic lesion within left ovary with mild interval decrease in septated solid component. Differential diagnosis include functional follicle or hemorrhagic cyst; however neoplastic etiology cannot be completely ruled out. Short-term follow-up in 6 weeks is recommended. 2. Right ovary surgically absent. ACT 112: Negative or not required by law. The above report was generated using voice recognition software. It may contain grammatical, syntax or spelling errors. Electronically signed by: Kathryn Campa DO 03/27/2021 4:17 PM MDM Narrative An order was placed for continuous cardiac monitoring. The monitor shows a rate of _80_ with _normal sinus rhythm. Patient has no family history of ovarian cysts. Patient was first seen and observation began at 1201 and was necessary in order to evaluate etiology of pain, attempted multiple medications for pain and nausea control, discuss options for disposition and differential diagnosis with the patient. Upon re- evaluation, 7 hours of observation revealed that the patient should be admitted. Discharge time at 2034. This is a 40-year-old female who presents with a recent complicated history of abdominal pain that has undergone some prior inpatient and outpatient evaluation. Patient was most concerned for constipation as well as recent diagnosis of an ovarian cyst. Labs drawn and sent were reassuring. UA unremarkable. Patient sent initially for CT imaging which was reassuring. No other acute pathology noted. Patient given several medications to try and control nausea as well as her pain. Patient continued to complain of both nausea and pain despite these attempts. Patient was rehydrated with fluids through her IV. We then discussed additional pelvic ultrasound given recent history of an ovarian cyst despite recent outpatient follow-up with [facility]. Ovarian cyst is still present, no evidence of torsion, TOA, uterine fibroid, or PID. Patient continued to complain of pain and was uncomfortable going home. Through this process patient's anxiety seemed to be escalating. I had a lengthy discussion at bedside regarding differential diagnosis, options for disposition, as well as her history of anxiety and depression. Due to concern for intractable nausea and vomiting, as well as her worsening anxiety that seems related to her concern for an underlying diagnosis as well as persistent pain, case was discussed with hospitalist for additional evaluation and management. Impression & Plan Abdominal pain, Ovarian cyst, Nausea, Anxiety Discharge Plan Visit Data Chief Complaint: Abdominal Pain Stated Complaint: ABDOMINAL PAIN/NAUSEA ED Provider: Daly Boss Discharge Problem: Abdominal pain, Ovarian cyst, Nausea, Anxiety Patient Disposition: Admitted As Inpatient Discharge Instructions Interventions: ED Discharge Assessment Last Done: 03/27/21 22:04 Discharge Problem: Abdominal pain Qualifiers: Abdominal location: lower abdomen, unspecified Qualified Code(s): R10.30 - Lower abdominal pain, unspecified Ovarian cyst Qualifiers: Laterality: left Qualified Code(s): N83.202 - Unspecified ovarian cyst, left side
[2021-03-27 12:42] LABS: Basophils # (auto) 0.01 K/uL (0-0.2); Basophils % (auto) 0.1 %; Eosinophils # (auto) 0.01 K/uL (0-0.5); Eosinophils % (auto) 0.1 %; Hematocrit (blood only) 40.8 % (37-47); Hemoglobin 13.8 g/dL (12.0-16.0); Immature Granulocytes # (auto) 0.01 K/uL (0.00-0.02); Immature Granulocytes % (auto) 0.1 %; Lymphocytes # (auto) 0.73 K/uL (1.2-3.4); Lymphocytes % (auto) 8.4 %; Mean Corpuscular Hemoglobin 30.3 pg (25-34); Mean Corpuscular Hgb Conc 33.8 g/dL (32-36); Mean Corpuscular Volume 89.7 fL (80-100); Mean Platelet Volume 10.7 fL (7.4-10.4); Monocytes # (auto) 0.23 K/uL (0.11-0.59); Monocytes % (auto) 2.7 %; Neutrophils # (auto) 7.67 K/uL (1.4-6.5); Neutrophils % (auto) 88.6 %; Platelet Count 321 K/uL (130-400); RDW Coefficient of Variation 14.7 % (11.5-14.5); RDW Standard Deviation 48.4 fL (36.4-46.3); Red Blood Count 4.55 M/uL (4.2-5.4); White Blood Count 8.66 K/uL (4.8-10.8)
[2021-03-27 12:59] LABS: Appearance Urine Clear (Clear); Bilirubin Urine Negative (Negative); Blood Urine Negative (Negative); Color Urine Dark Yellow; Glucose Urine UA Negative (Negative); Ketones Urine 2+ (Negative); Leukocyte Esterase Urine Negative (Negative); Nitrite Urine Negative (Negative); Protein Urine Negative (Negative); Specific Gravity Urine 1.023 (1.000-1.030); Urobilinogen Urine Negative (Negative)
[2021-03-27] MEDS ORDERED: ACETAMINOPHEN 1,000 MG/100 ML VIAL IV STA (12:59)
[2021-03-27] MEDS ORDERED: ONDANSETRON INJ 2 MG/ML 2 ML VIAL IV STA (12:59)
[2021-03-27 13:01] LABS: Alanine Aminotransferase 30 U/L (12-78); Albumin Level 3.9 gm/dl (3.4-5.0); Aspartate Aminotransferase 17 U/L (15-37); BUN Creatinine Ratio 9.6 (10-20); Blood Urea Nitrogen 7 mg/dl (7-18); Carbon Dioxide 19 mmol/L (21-32); Chloride 108 mmol/L (98-107); Est GFR (African American) 126.2 ml/min; Est GFR (Non-African American) 108.9 ml/min; Glucose 106 mg/dl (70-99); Lipase 206 U/L (73-393); Potassium 3.6 mmol/L (3.5-5.1); Sodium 138 mmol/L (136-145)
[2021-03-27 13:02] LABS: Pregnancy Test, Serum Negative (Negative)
[2021-03-27 13:04] LABS: Albumin Globulin Ratio 1.1 (0.9-2); Alkaline Phosphatase 69 U/L (45-117); Bilirubin,Total 0.4 mg/dl (0.2-1); Globulin 3.7 gm/dl (2.5-4.0); Total Protein 7.6 gm/dl (6.4-8.2)
[2021-03-27] MEDS ORDERED: OPTIRAY 320 100ml IV ONE (14:09)
[2021-03-27] MEDS ORDERED: fentaNYL citrate 100 MCG/2 ML VIAL IV STA (14:25)
[2021-03-27] MEDS ORDERED: SODIUM CHLORIDE 0.9% 1000ML 1,000 ML IV ONE (14:25)
--- NOTE | 2021-03-27 14:26 | CT Scan Report ---
CT SCAN OF THE ABDOMEN AND PELVIS WITH IV CONTRAST CLINICAL HISTORY: Lower abdominal pain. COMPARISON STUDY: Abdominal CT dated 02/16/2021. TECHNIQUE: Following the IV administration of 94 cc of Optiray 320, CT scan of the abdomen and pelvi s is performed from the lung bases to the proximal femora. Images are reviewed in the axial, sagittal , and coronal planes. IV contrast was administered without complication. A dose lowering technique wa s utilized adhering to the principles of ALARA. The examination is degraded by streak artifact from m etallic spinal rods. CT DOSE: 532.57 mGy.cm FINDINGS: Lung bases: The heart is normal in size and without pericardial effusion. Linear atelectasis is noted at the left lung base. The lung bases are otherwise clear. There is a small hiatal hernia. Liver: Evaluation of the liver is degraded by streak artifact. The contrast-enhanced liver is normal in size, contour, and attenuation. There is minimal central intrahepatic biliary ductal dilatation. T he hepatic veins and portal veins are patent. A 1.4 cm presumed hemangioma in the right lobe is uncha nged. Gallbladder: Surgically absent noting clips in the gallbladder fossa. Spleen: Normal in size and attenuation. Pancreas: Unremarkable. Adrenal glands: Unremarkable. Kidneys: Evaluation of the kidneys is significantly degraded by streak artifact. The contrast enhance d kidneys are normal in size and without hydronephrosis. The kidneys enhance symmetrically. Abdominal vasculature: The abdominal aorta is normal in course and caliber. Bowel: There is no bowel obstruction. Mild fecal retention is seen throughout the colon. The appendix is not identified and reported surgically absent. Peritoneum: There is no intraperitoneal free air or abdominal ascites. There is a small fat-containin g umbilical hernia. Lymphadenopathy: None. Pelvic viscera: The bladder wall appears circumferentially thickened and there is mild pericystic inf iltration. The uterus and adnexa are normal as visualized noting left ovarian follicles. Skeletal structures: No lytic or blastic lesions are seen. There is thoracolumbar scoliosis with post operative change and spinal rods in place. A bone graft donor site is noted in the right ilium. IMPRESSION: 1. Question cystitis. Correlation with clinical findings and urinalysis. 2. Additional findings as above. ACT 112: Negative or not required by law. Electronically signed by: Joselito Dunn M.D. 03/27/2021 2:24 PM
[2021-03-27] MEDS ORDERED: KETOROLAC TROMETHAMINE 15 MG/ML VIAL IV ONE (14:51)
[2021-03-27] MEDS ORDERED: DICYCLOMINE HCL 10 MG CAP PO ONE (14:51)
--- NOTE | 2021-03-27 16:18 | Ultrasound Report ---
EXAMINATION: PELVIC ULTRASOUND CLINICAL HISTORY: lower abd pain, hx cysts COMPARISON STUDY: March 12, 2021 FINDINGS: The uterus measured 8.4 x 2.3 x 4.8 cm in size.. The endometrial stripe measured 0.8 cm. The right ovary was not seen, reported surgically absent. . The left ovary measured 4.7 x 1.8 x 2.8 cm. There is 2.3 x 1.7 x 1.5 cm complex cystic lesion which i s not significantly changed in size however shows interval decrease of partially solid septated compo nent. There is no ultrasonographic evidence of ovarian torsion. It should be noted that ovarian torsion can be present with normal Doppler ultrasonographic findings. There was no evidence of pathologic free pelvic fluid. IMPRESSION: 1. Stable size complex cystic lesion within left ovary with mild interval decrease in septated solid component. Differential diagnosis include functional follicle or hemorrhagic cyst; however neoplasti c etiology cannot be completely ruled out. Short-term follow-up in 6 weeks is recommended. 2. Right ovary surgically absent. ACT 112: Negative or not required by law. The above report was generated using voice recognition software. It may contain grammatical, syntax o r spelling errors. Electronically signed by: Kathryn Campa DO 03/27/2021 4:17 PM
[2021-03-27] MEDS ORDERED: METOCLOPRAMIDE HCL INJ 5 MG/ML 2 ML VIAL IV ONE (17:26)
[2021-03-27] MEDS ORDERED: oxyCODONE/ACETAMINOPHEN 5mg/325mg TAB PO STA (17:26)
[2021-03-27] MEDS ORDERED: LORazepam 0.5 MG/1 ML VIAL IV STA (19:07)
[2021-03-27] MEDS ORDERED: POLYETHYLENE (MIRALAX) 17 GM PACK PO ONE (21:06)
[2021-03-27] MEDS ORDERED: SUMAtriptan succinate 6 MG/0.5 ML VIAL SQ STA (21:06)
--- NOTE | 2021-03-27 21:08 | History & Physical Report ---
Date of Service March 27, 2021 Assessment & Plan (1) Abdominal pain: Sandrine Cassidy is a 40y/o female with PMH significant for Factor V leiden, history of pulmonary embolisms & DVTs, ovarian cysts, and migraines; who presents for concerns of persistent nausea, vomiting, and abdominal pain. Abdominal pain: -At this time do not believe that constipation or ovarian cyst are contributing to abdominal pain patient is having; think more likely that this is a presentation of an abdominal migraine given history -Potential contributions to abdominal pain from anxiety over uncertainty of potential disease -Pelvic ultrasound: -CT abdomen/pelvis: -Sumatriptan 6 mg SQ given in ED with slight improvement of abdominal pain -Patient may benefit from additional doses (max 6 doses weekly) -Will attempt to avoid narcotic medications as this has not provided any benefit as outpatient or in ED Suicidal risk: -One-to-one sitter placed for overnight observation given suicidal intent and thoughts -Psych consulted given expressed suicidal ideation and intent -Continue Zoloft Factor V leiden mutation: -Chart review demonstrates positive factor V Leiden testing from 10/20/2015 -History of multiple PEs and DVTs -Recommend discontinuation of use of all hormonal contraceptives given this history -If contraception desired in future, would recommend ParaGard Fibromyalgia: -Continue home gabapentin 600mg TID Diet: Regular CODE STATUS: Full code DVT ppx: lovenox SQ (2) Migraines: (3) Ovarian cyst: (4) Fibromyalgia: (5) Factor V Leiden mutation: (6) Suicidal risk: History of Present Illness Primary Care Provider: Roberto Han Sandrine Cassidy is a 40y/o female with PMH significant for Factor V leiden, history of pulmonary embolisms & DVTs, ovarian cysts, and migraines; who presents for concerns of persistent nausea, vomiting, and abdominal pain. Pain started again yesterday, and worsened throughout the night and into today. Similar to recent pains that she has been having, for which she was evaluated by her BUSINESS DEVELOPMENT SPECIALIST and ultimately led to her being diagnosed with a left ovarian cyst. Did previously have ovarian cysts on the right ovary that had become hemorrhagic and ultimately required removal. Ultrasound done 2 weeks ago demonstrated that this ovarian cyst likely was hemorrhagic, and at that time it was recommended that she have follow-up in 6 weeks for further evaluation. Was given oxycodone by her BUSINESS DEVELOPMENT SPECIALIST provider to help address this pain, however this has not provided any relief for the pain. The only thing that she has found to be somewhat helpful is a heating pad over her lower abdomen. Over this same 6 weeks, she has also been intermittently dealing with constipation for which she has been trying to eat a bakeshop cleaner diet and has been intermittently using enemas in order to resolve, is scheduled for evaluation with GI and potentially colonoscopy in April given this abdominal pain and concern for constipation. Additionally on further discussions, she remarks that she has also been having migraines over these last 6 weeks that have been occurring more frequently, and might have preceded the start of her abdominal pain. She does intermittently get migraines but rarely takes anything to stop them, usually trying to stay in a dark quiet place until there gone. Intermittently utilizes medical marijuana to address her fibromyalgia pain, but has not been using this over the last 6 weeks. Endorses that she was previously on blood thinners (dabigatran per chart review) for factor V Leiden however stopped taking these medications. Is not certain if she was supposed to continue taking these medications as she never continue to discuss this with providers. Did not inform BUSINESS DEVELOPMENT SPECIALIST of this history as she had forgotten this history. During discussions with both ED provider and myself, patient endorses suicidal ideation at the thought of continuing to have abdominal pain or being alone. States "if I was being sent home tonight I would probably just take all of my pills to end it all." Endorses that she does have a baseline of anxiety for which she has recently been restarted on her Zoloft, and with this continued intermittent pain and not having an exact source of where her pain is this is caused her to feel suicidal, with frequent thoughts of harming herself. Desires to have someone sit with her in the hospital overnight as she is concerned that if she is alone while in the hospital she may attempt suicide. In the ED patient received: Tylenol, Zofran, fentanyl, Bentyl, Toradol, Reglan, oxycodone, and Ativan; with no improvement in her pain level or anxiety over pain. Allergies Allergy/AdvReac Type Severity Reaction Status Date / Time doxycycline Allergy Unknown Hives and Verified 02/16/21 14:48 nausea. nitrofurantoin Allergy Unknown HIVES Verified 02/16/21 14:48 Sulfa (Sulfonamide Allergy Unknown ANAPHYLAXIS Verified 02/16/21 14:48 Antibiotics) amoxicillin Allergy Rash Unverified 03/27/21 17:12 ciprofloxacin [From Cipro] Allergy Rash Unverified 03/27/21 17:12 haloperidol [From Haldol] Allergy Rash Unverified 03/27/21 17:12 levofloxacin [From Levaquin] Allergy Hives Unverified 03/27/21 17:12 prochlorperazine Allergy Hives Unverified 03/27/21 17:12 [From Compazine] sulfamethoxazole Allergy Anaphylaxis Unverified 03/27/21 17:12 [From Bactrim] trimethoprim [From Bactrim] Allergy Anaphylaxis Unverified 03/27/21 17:12 Home Medications Medication Instructions Recorded Confirmed Type metoprolol tartrate 50 mg PO QAM 02/05/21 03/27/21 History ondansetron 4 mg PO Q8H PRN #30 tab 02/05/21 03/27/21 Rx oxycodone 5 - 10 mg PO Q6H PRN #12 tab 03/12/21 03/27/21 Rx gabapentin 600 mg PO TID 03/27/21 03/27/21 History norethindrone (contraceptive) 0.25 mg PO DAILY 03/27/21 03/27/21 History [Incassia] sertraline 50 mg PO DAILY 03/27/21 03/27/21 History Past Med/Surg History Medical History Acute deep vein thrombosis (DVT) of popliteal vein of left lower extremity Factor V Leiden mutation Fibromyalgia Left ovarian cyst No pertinent family history Pulmonary emboli Surgical History History of cholecystectomy History of right oophorectomy History of spinal fusion History of umbilical hernia repair Hx of appendectomy Social History Smoking Status: Former smoker Tobacco Type: Cigarettes Hx Alcohol Use: No Hx Substance Use: Yes Last Used Substance: Days (ago) Last Used Substance Other:: last used in january Substance Use Type Other:: medical marijuana Preferred Language: Serbian Communication Ability: Effective Beliefs That Will Affect Care: None marital status: Current Living Situation: Spouse current occupational status: unemployed and disabled Other Information That Helps Us Care for You: No Feels Safe at Home: Yes Safety Concerns: Feels Safe At This Time Assistive Devices: None Review of Systems Review of Systems: All systems reviewed & are unremarkable except as noted in HPI & below Physical Exam Constitutional: WD/WN, vitals as above Eyes: PERRL, conjunctivae normal, anicteric sclerae Respiratory: normal respiratory effort, lungs clear to auscultation Auscultation: no crackles, no rales, no rhonchi and no wheezes Cardiovascular: Rate/Rhythm: regular rate and regular rhythm Heart Sounds: no gallop, no murmur and no cardiac rub Vessels: normal peripheral pulses; no JVD Extremities: no edema Gastrointestinal (Abdomen): Inspection/Auscultation: normal bowel sounds; abdomen not distended Percussion/Palpation: + abdomen tender (suprapubic/lower quadrants), abdomen soft and normal to percussion; no guarding and abdomen not rigid no rebound, negative drew's sign Musculoskeletal: no cyanosis or clubbing, extremities motor strength 5/5 Skin: no rashes, warm and dry Neurologic: PERRL, EOMI, accommodation nl, no face palsy, no dysarthria CN's II-XI intact bilaterally and moves all extremities Psychiatric: Orientation: alert and oriented x 3 Eye Contact: + poor eye contact Affect: + depressed affect and + tearful affect Suicidal Thoughts: + reports suicidal thoughts, + reports suicidal plan and + reports suicidal intent Insight: + poor insight Judgement: + poor judgement Results & Data Results & Data ([facility]) Vital Signs (Past 12 Hours) Vital Signs Temp Pulse Resp BP Pulse Ox 03/27/21 19:00 86 14 117/74 96 03/27/21 18:30 91 H 21 121/76 99 03/27/21 18:00 91 H 22 126/87 99 03/27/21 17:30 85 24 122/70 100 03/27/21 17:00 85 19 107/71 100 03/27/21 16:50 83 22 100 03/27/21 16:40 86 27 H 100 03/27/21 16:30 87 22 125/80 99 03/27/21 16:20 85 15 98 03/27/21 16:10 103 H 19 98 03/27/21 16:06 87 03/27/21 15:20 98 H 23 100 03/27/21 15:10 90 15 99 03/27/21 15:00 96 H 27 H 123/73 100 03/27/21 14:50 86 20 99 03/27/21 14:40 92 H 21 100 03/27/21 14:31 99 H 22 111/73 99 03/27/21 14:30 96 H 22 99 03/27/21 14:20 100 03/27/21 14:15 98 H 27 H 100 03/27/21 14:00 98 H 22 127/72 99 03/27/21 13:50 93 H 99 03/27/21 13:40 93 H 24 99 03/27/21 13:30 90 16 106/64 98 03/27/21 13:20 92 H 28 H 99 03/27/21 13:10 80 28 H 99 03/27/21 13:00 84 107/65 100 03/27/21 12:50 78 24 100 03/27/21 12:46 80 18 100 03/27/21 12:30 83 25 H 103/60 100 03/27/21 11:30 36.0 C L 109 H 20 87/54 L 99 Laboratory Results 03/27/21 03/27/21 03/27/21 Range/Units 19:19 19:19 12:09 WBC (4.8-10.8) K/uL RBC (4.2-5.4) M/uL Hgb (12.0-16.0) g/dL Hct (37-47) % MCV (80-100) fL MCH (25-34) pg MCHC (32-36) g/dL RDW Std Deviation (36.4-46.3) fL RDW Coeff of Kenneth (11.5-14.5) % Plt Count (130-400) K/uL MPV (7.4-10.4) fL Immature Gran % (Auto) % Neut % (Auto) % Lymph % (Auto) % Dawson % (Auto) % Eos % (Auto) % Baso % (Auto) % Neut # (Auto) (1.4-6.5) K/uL Lymph # (Auto) (1.2-3.4) K/uL Dawson # (Auto) (0.11-0.59) K/uL Eos # (Auto) (0-0.5) K/uL Baso # (Auto) (0-0.2) K/uL Immature Gran # (Auto) (0.00-0.02) K/uL Sodium (136-145) mmol/L Potassium (3.5-5.1) mmol/L Chloride (98-107) mmol/L Carbon Dioxide (21-32) mmol/L Anion Gap (3-11) BUN (7-18) mg/dl Creatinine (0.6-1.2) mg/dl Est Cr Clr Drug Dosing Est GFR ( Amer) ml/min Est GFR (Non-Af Amer) ml/min BUN/Creatinine Ratio (10-20) Glucose (70-99) mg/dl Calcium (8.5-10.1) mg/dl Total Bilirubin (0.2-1) mg/dl AST (15-37) U/L ALT (12-78) U/L Alkaline Phosphatase (45-117) U/L Total Protein (6.4-8.2) gm/dl Albumin (3.4-5.0) gm/dl Globulin (2.5-4.0) gm/dl Albumin/Globulin Ratio (0.9-2) Lipase (73-393) U/L HCG, Qual Negative (Negative) Urine Color Urine Appearance (Clear) Urine pH (4.5-7.5) Ur Specific Gonzales (1.000-1.030) Urine Protein (Negative) Urine Glucose (UA) (Negative) Urine Ketones (Negative) Urine Blood (Negative) Urine Nitrite (Negative) Urine Bilirubin (Negative) Urine Urobilinogen (Negative) Ur Leukocyte Esterase (Negative) COVID-19 Eval Order Covid19 at [facility] SARS-CoV-2 (PCR) NEGATIVE (Negative) 03/27/21 03/27/21 03/27/21 Range/Units 12:09 12:09 11:57 WBC 8.66 (4.8-10.8) K/uL RBC 4.55 (4.2-5.4) M/uL Hgb 13.8 (12.0-16.0) g/dL Hct 40.8 (37-47) % MCV 89.7 (80-100) fL MCH 30.3 (25-34) pg MCHC 33.8 (32-36) g/dL RDW Std Deviation 48.4 H (36.4-46.3) fL RDW Coeff of Kenneth 14.7 H (11.5-14.5) % Plt Count 321 (130-400) K/uL MPV 10.7 H (7.4-10.4) fL Immature Gran % (Auto) 0.1 % Neut % (Auto) 88.6 % Lymph % (Auto) 8.4 % Dawson % (Auto) 2.7 % Eos % (Auto) 0.1 % Baso % (Auto) 0.1 % Neut # (Auto) 7.67 H (1.4-6.5) K/uL Lymph # (Auto) 0.73 L (1.2-3.4) K/uL Dawson # (Auto) 0.23 (0.11-0.59) K/uL Eos # (Auto) 0.01 (0-0.5) K/uL Baso # (Auto) 0.01 (0-0.2) K/uL Immature Gran # (Auto) 0.01 (0.00-0.02) K/uL Sodium 138 (136-145) mmol/L Potassium 3.6 (3.5-5.1) mmol/L Chloride 108 H (98-107) mmol/L Carbon Dioxide 19 L (21-32) mmol/L Anion Gap 10.0 (3-11) BUN 7 (7-18) mg/dl Creatinine 0.69 (0.6-1.2) mg/dl Est Cr Clr Drug Dosing Not Reportable Est GFR ( Amer) 126.2 ml/min Est GFR (Non-Af Amer) 108.9 ml/min BUN/Creatinine Ratio 9.6 L (10-20) Glucose 106 H (70-99) mg/dl Calcium 9.0 (8.5-10.1) mg/dl Total Bilirubin 0.4 (0.2-1) mg/dl AST 17 (15-37) U/L ALT 30 (12-78) U/L Alkaline Phosphatase 69 (45-117) U/L Total Protein 7.6 (6.4-8.2) gm/dl Albumin 3.9 (3.4-5.0) gm/dl Globulin 3.7 (2.5-4.0) gm/dl Albumin/Globulin Ratio 1.1 (0.9-2) Lipase 206 (73-393) U/L HCG, Qual (Negative) Urine Color Dark Yellow Urine Appearance Clear (Clear) Urine pH 6.0 (4.5-7.5) Ur Specific Gonzales 1.023 (1.000-1.030) Urine Protein Negative (Negative) Urine Glucose (UA) Negative (Negative) Urine Ketones 2+ H (Negative) Urine Blood Negative (Negative) Urine Nitrite Negative (Negative) Urine Bilirubin Negative (Negative) Urine Urobilinogen Negative (Negative) Ur Leukocyte Esterase Negative (Negative) COVID-19 Eval Order SARS-CoV-2 (PCR) (Negative) Diagnostic Findings Impressions Abdomen/Pelvis CT 03/27/21 13:53 CT SCAN OF THE ABDOMEN AND PELVIS WITH IV CONTRAST CLINICAL HISTORY: Lower abdominal pain. COMPARISON STUDY: Abdominal CT dated 02/16/2021. TECHNIQUE: Following the IV administration of 94 cc of Optiray 320, CT scan of the abdomen and pelvis is performed from the lung bases to the proximal femora. Images are reviewed in the axial, sagittal, and coronal planes. IV contrast was administered without complication. A dose lowering technique was utilized adhering to the principles of ALARA. The examination is degraded by streak artifact from metallic spinal rods. CT DOSE: 532.57 mGy.cm FINDINGS: Lung bases: The heart is normal in size and without pericardial effusion. Linear atelectasis is noted at the left lung base. The lung bases are otherwise clear. There is a small hiatal hernia. Liver: Evaluation of the liver is degraded by streak artifact. The contrast- enhanced liver is normal in size, contour, and attenuation. There is minimal central intrahepatic biliary ductal dilatation. The hepatic veins and portal veins are patent. A 1.4 cm presumed hemangioma in the right lobe is unchanged. Gallbladder: Surgically absent noting clips in the gallbladder fossa. Spleen: Normal in size and attenuation. Pancreas: Unremarkable. Adrenal glands: Unremarkable. Kidneys: Evaluation of the kidneys is significantly degraded by streak artifact. The contrast enhanced kidneys are normal in size and without hydronephrosis. The kidneys enhance symmetrically. Abdominal vasculature: The abdominal aorta is normal in course and caliber. Bowel: There is no bowel obstruction. Mild fecal retention is seen throughout the colon. The appendix is not identified and reported surgically absent. Peritoneum: There is no intraperitoneal free air or abdominal ascites. There is a small fat-containing umbilical hernia. Lymphadenopathy: None. Pelvic viscera: The bladder wall appears circumferentially thickened and there is mild pericystic infiltration. The uterus and adnexa are normal as visualized noting left ovarian follicles. Skeletal structures: No lytic or blastic lesions are seen. There is thoracolumbar scoliosis with postoperative change and spinal rods in place. A bone graft donor site is noted in the right ilium. IMPRESSION: 1. Question cystitis. Correlation with clinical findings and urinalysis. 2. Additional findings as above. ACT 112: Negative or not required by law. Electronically signed by: Joselito Dunn M.D. 03/27/2021 2:24 PM Pelvis Ultrasound 03/27/21 15:12 EXAMINATION: PELVIC ULTRASOUND CLINICAL HISTORY: lower abd pain, hx cysts COMPARISON STUDY: March 12, 2021 FINDINGS: The uterus measured 8.4 x 2.3 x 4.8 cm in size.. The endometrial stripe measured 0.8 cm. The right ovary was not seen, reported surgically absent. . The left ovary measured 4.7 x 1.8 x 2.8 cm. There is 2.3 x 1.7 x 1.5 cm complex cystic lesion which is not significantly changed in size however shows interval decrease of partially solid septated component. There is no ultrasonographic evidence of ovarian torsion. It should be noted that ovarian torsion can be present with normal Doppler ultrasonographic findings. There was no evidence of pathologic free pelvic fluid. IMPRESSION: 1. Stable size complex cystic lesion within left ovary with mild interval decrease in septated solid component. Differential diagnosis include functional follicle or hemorrhagic cyst; however neoplastic etiology cannot be completely ruled out. Short-term follow-up in 6 weeks is recommended. 2. Right ovary surgically absent. ACT 112: Negative or not required by law. The above report was generated using voice recognition software. It may contain grammatical, syntax or spelling errors. Electronically signed by: Kathryn Campa DO 03/27/2021 4:17 PM Medications Administered Current Inpatient Medications Acetaminophen (Acetaminophen 325 Mg Tab) 650 mg PO Q4H PRN PRN Reason: pain/fever Stop: 04/26/21 22:31 Last Admin: 03/27/21 23:06 Dose: 650 mg Documented by: Al Hydrox/Mg Hydrox/Simethicone (Aluminum/Magnesium Susp 30 Ml Udc) 30 ml PO Q6H PRN PRN Reason: Dyspepsia Stop: 04/26/21 22:31 Enoxaparin Sodium (Enoxaparin Inj 40 Mg/0.4 Ml Syr) 40 mg SQ Q12H OFELIA Stop: 04/26/21 22:59 Gabapentin (Gabapentin 600 Mg Tab) 600 mg PO TID OFELIA Stop: 04/26/21 22:31 Magnesium Hydroxide (Magnesium Hydroxide Susp 30 Ml Udc) 30 ml PO Q6H PRN PRN Reason: Constipation Stop: 04/26/21 22:31 Metoprolol Tartrate (Metoprolol Tartrate 50 Mg Tab) 50 mg PO QAM OFELIA Stop: 04/27/21 08:59 Ondansetron HCl (Ondansetron Inj 2 Mg/Ml 2 Ml Vial) 4 mg IV Q6H PRN PRN Reason: Nausea Stop: 04/26/21 22:31 Polyethylene Glycol (Polyethylene (Miralax) 17 Gm Pack) 17 gm PO DAILY PRN PRN Reason: Constipation Stop: 04/26/21 22:31 Sertraline HCl (Sertraline Hcl 50 Mg Tablet) 50 mg PO DAILY [facility] Stop: 04/27/21 08:59 Home Medication List Medication Instructions Recorded metoprolol tartrate 50 mg PO QAM 02/05/21 ondansetron 4 mg PO Q8H PRN #30 tab 02/05/21 oxycodone 5 - 10 mg PO Q6H PRN #12 tab 03/12/21 gabapentin 600 mg PO TID 03/27/21 norethindrone (contraceptive) 0.25 mg PO DAILY 03/27/21 [Incassia] sertraline 50 mg PO DAILY 03/27/21 Code Status & VTE Plan VTE Prophylaxis Plan VTE Prophylaxis will be ordered: Yes Supervising Physician Co-Signing Physician Notes Attending addendum: I have physically seen this patient, have supervised the medical residents activities, and agree with the H&P unless as otherwise noted. Assessment and Plan: Abdominal pain- Abdominal migraine versus constipation versus ovarian cyst. Sumatriptan 6 mg subcu given in ED with slight improvement abdominal pain Avoid narcotics Suicidal ideation- One-to-one sitter Consult psychiatry Continue Zoloft Factor V Leiden mutation/history multiple PEs and DVTs- Discontinue OCPs Fibromyalgia- Continue gabapentin 600 mg p.o. 3 times daily Remaining orders and notations as noted Resident Activity Tracking Resident Involvement: Resident Care Provided Care Provided: Adult [facility] Medicine (1) Ovarian cyst Laterality: left Qualified Code(s): N83.202 - Unspecified ovarian cyst, left side (2) Migraines Intractability: intractable Migraine type: abdominal Qualified Code(s): G43.D1 - Abdominal migraine, intractable (3) Abdominal pain Abdominal location: right lower quadrant Qualified Code(s): R10.31 - Right lower quadrant pain
[2021-03-27] MEDS ORDERED: ALUMINUM/MAGNESIUM SUSP 30 ML UDC PO PRN (22:32)
[2021-03-27] MEDS ORDERED: POLYETHYLENE (MIRALAX) 17 GM PACK PO PRN (22:32)
[2021-03-27] MEDS ORDERED: MAGNESIUM HYDROXIDE SUSP 30 ML UDC PO PRN (22:32)
[2021-03-27] MEDS: ACETAMINOPHEN 325 MG TAB PO PRN (23:06)
[2021-03-27] MEDS: GABAPENTIN 600 MG TAB PO SCH (23:42)
[2021-03-27] MEDS: ENOXAPARIN INJ 40 MG/0.4 ML SYR SQ SCH (23:43)
[2021-03-28] MEDS: ONDANSETRON INJ 2 MG/ML 2 ML VIAL IV PRN ×3 (00:50→16:23)
[2021-03-28] MEDS ORDERED: SUMAtriptan succinate 6 MG/0.5 ML VIAL SQ STA (02:16)
[2021-03-28] MEDS: ACETAMINOPHEN 325 MG TAB PO PRN ×3 (06:26→20:36)
[2021-03-28 06:42] LABS: Basophils # (auto) 0.02 K/uL (0-0.2); Basophils % (auto) 0.3 %; Eosinophils # (auto) 0.04 K/uL (0-0.5); Eosinophils % (auto) 0.6 %; Hematocrit (blood only) 35.7 % (37-47); Immature Granulocytes # (auto) 0.03 K/uL (0.00-0.02); Immature Granulocytes % (auto) 0.4 %; Lymphocytes # (auto) 1.92 K/uL (1.2-3.4); Lymphocytes % (auto) 27.4 %; Mean Corpuscular Hemoglobin 29.9 pg (25-34); Mean Corpuscular Hgb Conc 33.6 g/dL (32-36); Mean Platelet Volume 11.9 fL (7.4-10.4); Monocytes # (auto) 0.38 K/uL (0.11-0.59); Monocytes % (auto) 5.4 %; Neutrophils # (auto) 4.62 K/uL (1.4-6.5); Neutrophils % (auto) 65.9 %; Platelet Count 248 K/uL (130-400); RDW Coefficient of Variation 14.7 % (11.5-14.5); RDW Standard Deviation 48.2 fL (36.4-46.3); Red Blood Count 4.01 M/uL (4.2-5.4); White Blood Count 7.01 K/uL (4.8-10.8)
[2021-03-28 06:57] LABS: BUN Creatinine Ratio 17.7 (10-20); Blood Urea Nitrogen 7 mg/dl (7-18); Calcium 8.5 mg/dl (8.5-10.1); Carbon Dioxide 20 mmol/L (21-32); Chloride 114 mmol/L (98-107); Creatinine Clr Calc Pharmacy 219.9 ml/min; Est GFR (African American) > 150.0 ml/min; Est GFR (Non-African American) 130.3 ml/min; Glucose 73 mg/dl (70-99); Phosphorus 3.5 mg/dl (2.5-4.9); Sodium 141 mmol/L (136-145)
[2021-03-28] MEDS: GABAPENTIN 600 MG TAB PO SCH ×3 (08:04→20:37)
[2021-03-28] MEDS: METOPROLOL TARTRATE 50 MG TAB PO SCH (08:04)
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
[2021-03-28] MEDS: SERTRALINE HCL 50 MG TABLET PO SCH (10:23)
[2021-03-28] MEDS: ENOXAPARIN INJ 40 MG/0.4 ML SYR SQ SCH ×2 (10:24→23:40)
[2021-03-28 10:31] LABS: Potassium 3.9 mmol/L (3.5-5.1)
[2021-03-28 10:33] LABS: Magnesium 2.1 mg/dl (1.8-2.4)
--- NOTE | 2021-03-28 15:26 | Hospitalist Progress Note ---
Date of Service March 28, 2021 Assessment & Plan (1) Abdominal pain: Sandrine Cassidy is a 40y/o female with PMH significant for Factor V leiden, history of pulmonary embolisms & DVTs, ovarian cysts, and migraines; who presents for concerns of persistent nausea, vomiting, and abdominal pain. Abdominal pain: -Suspect constipation versus abdominal migraine by history -Potential contributions to abdominal pain from anxiety over uncertainty of potential disease -Pelvic ultrasound:Stable size complex cystic lesion within left ovary with mild interval decrease in septated solid component. Differential diagnosis include functional follicle or hemorrhagic cyst; however neoplastic etiology cannot be completely ruled out. Short-term follow-up in 6 weeks is recommended. Right ovary surgically absent. -CT abdomen/pelvis:Question cystitis. Correlation with clinical findings and urinalysis. No signs of ischemia. -UA/history not consistent with cystitis -Sumatriptan 6 mg SQ given in ED with slight improvement of abdominal pain -Patient may benefit from additional doses (max 6 doses weekly) -Will attempt to avoid narcotic medications as this has not provided any benefit as outpatient or in ED Bowel regimen including Metamucil, MiraLAX, docusate as needed Suicidal risk: -One-to-one sitter placed for overnight observation given suicidal intent and thoughts -Psych consulted, appreciate recommendations. Discussed med options of titrating Zoloft to 100, or cross tapering to Cymbalta. We will continue to follow with psych liaison. Agree with Ativan 0.5 mg every 6 hours as needed is reasonable oxygen and failure of Vistaril in the past. With current SI, exacerbated/driven by medical condition and pain. We will continue to follow, continue one-to-one at this time. Pending on clinical progression and ongoing needs may require inpatient psychiatric hospitalization versus referral to outpatient services, see psych note for additional details. Factor V leiden mutation: -Chart review demonstrates positive factor V Leiden testing from 10/20/2015 -History of multiple PEs and DVTs -Recommend discontinuation of use of all hormonal contraceptives given this history -If contraception desired in future, would recommend IUD Fibromyalgia: -Continue home gabapentin 600mg TID Diet: Regular, safety tray CODE STATUS: Full code DVT ppx: lovenox SQ (2) Migraines: (3) Ovarian cyst: (4) Fibromyalgia: (5) Factor V Leiden mutation: (6) Suicidal risk: Admission and Anticipated Discharge Date Admission Date: March 27, 2021 Supervising Physician Co-Signing Physician Notes Patient seen and examined with PGY-3 Dr. Bose. Agree with history, exam findings, assessment and plan of care as outlined. In brief, Sandrine is a 40 year old female with history of a left complex ovarian cyst, chronic constipation admitted, factor V Leiden admitted with right sided abdominal pain. Typically has a hard, painful bowel movement once per week. Will occasionally use Miralax with some improvement. Has never used Miralax regularly. Does not use metamucil regularly. Has not been on Linzess or Amitiza in the past either. Still has pain in the right lower quadrant. Endorses chronic SI. In the last several weeks started on SSRI but has not felt much different. VS and nursing notes reviewed. Well appearing, but anxious. Tender in the right lower quadrant. No rebound. 1. abdominal pain. Suspect this is due to constipation. Lower suspicion for this right lower quadrant pain being from ovarian cyst, although possible that it is referred pain. Start miralax and metamucil. PO hydration, fiber rich diet. nutrition consult. 2. SI. continue zoloft. appreciate psych recommendations. Other issues stable. Dispo: pending clinical improvement. Subjective Fartun seen at the bedside today. She reports that she continues she continues to not feel very well. She continues to have pain in her "lower belly ", in the right lower quadrant. She reports that she has had intermittent pain since February, but her pain acutely worsened 3 weeks ago and again 2 weeks ago when she was told she had a cyst rupture. Her pain is currently an 8 out of 10, was a 9 at admit, and thinks it was around a 7 overnight. She reports that she is very anxious, and the pain makes her anxiety worse and has given her "bad thoughts "about hurting herself. She reports that she still has these thoughts, and that they are worsened by her pain. She reports she had not had these thoughts prior to a few weeks ago, of note had also started an SSRI around that time. Was switched to sertraline 50 mg. Will see psychiatry today for medication adjustments, is aware of this and agreeable. Also endorses that she is chronically constipated, and normally has a bowel movement once a week. She reports that this is improved with Metamucil in the past, has recently been trying naturopathic remedies which have not seem to work well over the previous 2 to 3 weeks. She reports she has intermittently had bright red blood mostly on the toilet paper, rarely mixed in with her bowel movements and sometimes has painful straining with bowel movements. She had a colonoscopy 7 years ago which noted some hemorrhoids, but was otherwise normal. Review of Systems Review of Systems: All systems reviewed & are unremarkable except as noted in HPI & below Physical Exam Physical Exam: General: A&Ox3. NAD. Cooperative. HEENT: Atraumatic, normocephalic. Pulm: CTAB A&P. -wheezes, -rales, -rhonchi. Symmetrical chest rise. No increase work of breathing. No respiratory distress. Cardiac: RRR, -mrg. Radial pulses intact and symmetrical. Abdominal: Tender to palpation in right lower quadrant, minimally tender in right upper quadrant. No Bowers's. Left upper and lower quadrants nontender. Bowel sounds intact. No rebound tenderness. Results & Data Results & Data ([facility]) Vital Signs (Past 12 Hours) Vital Signs Temp Pulse Resp BP Pulse Ox 03/28/21 15:09 37.2 C 78 16 116/77 95 03/28/21 08:12 36.8 C 106 H 18 109/74 97 Resident Activity Tracking Resident Involvement: Resident Care Provided Care Provided: Adult Hospital Medicine (1) Ovarian cyst Laterality: left Qualified Code(s): N83.202 - Unspecified ovarian cyst, left side (2) Migraines Intractability: intractable Migraine type: abdominal Qualified Code(s): G43.D1 - Abdominal migraine, intractable (3) Abdominal pain Abdominal location: right lower quadrant Qualified Code(s): R10.31 - Right lower quadrant pain
[2021-03-28] MEDS: PSYLLIUM 58.6% POWDER PACKET PO SCH (16:23)
[2021-03-28 19:22] LABS: Amphetamines+Metham, Urine Neg (Neg); Barbiturates, Urine Neg (Neg); Benzodiazepine, Urine Neg (Neg); Cocaine, Urine Neg (Neg); MDMA (Ecstacy), Urine Neg (Neg); Methadone, Urine Neg (Neg); Opiate, Urine Neg (Neg); Phencyclidine, Urine Neg (Neg)
[2021-03-28] MEDS: LORazepam 0.5 MG/1 ML VIAL IV PRN (20:36)
[2021-03-29] MEDS: ACETAMINOPHEN 325 MG TAB PO PRN ×3 (02:51→12:46)
[2021-03-29] MEDS: ONDANSETRON INJ 2 MG/ML 2 ML VIAL IV PRN ×3 (02:52→20:03)
[2021-03-29] MEDS: GABAPENTIN 600 MG TAB PO SCH ×3 (07:28→20:15)
[2021-03-29] MEDS: METOPROLOL TARTRATE 50 MG TAB PO SCH (07:28)
[2021-03-29] MEDS: SERTRALINE HCL 50 MG TABLET PO SCH ×2 (07:29→07:40)
[2021-03-29 07:48] LABS: Eosinophils # (auto) 0.06 K/uL (0-0.5); Eosinophils % (auto) 1.1 %; Hematocrit (blood only) 34.9 % (37-47); Hemoglobin 11.9 g/dL (12.0-16.0); Immature Granulocytes # (auto) 0.01 K/uL (0.00-0.02); Immature Granulocytes % (auto) 0.2 %; Lymphocytes # (auto) 1.76 K/uL (1.2-3.4); Lymphocytes % (auto) 32.2 %; Mean Corpuscular Hemoglobin 30.1 pg (25-34); Mean Corpuscular Hgb Conc 34.1 g/dL (32-36); Mean Corpuscular Volume 88.1 fL (80-100); Mean Platelet Volume 10.1 fL (7.4-10.4); Monocytes # (auto) 0.34 K/uL (0.11-0.59); Monocytes % (auto) 6.2 %; Neutrophils # (auto) 3.29 K/uL (1.4-6.5); Neutrophils % (auto) 60.3 %; Platelet Count 259 K/uL (130-400); RDW Coefficient of Variation 14.6 % (11.5-14.5); RDW Standard Deviation 47.2 fL (36.4-46.3); Red Blood Count 3.96 M/uL (4.2-5.4); White Blood Count 5.46 K/uL (4.8-10.8)
[2021-03-29 08:06] LABS: BUN Creatinine Ratio 11.5 (10-20); Calcium 8.5 mg/dl (8.5-10.1); Est GFR (African American) 140.3 ml/min; Est GFR (Non-African American) 121.1 ml/min; Potassium 3.6 mmol/L (3.5-5.1)
[2021-03-29] MEDS ORDERED: SODIUM CHLORIDE 0.9% 1000ML 1,000 ML IV ONE (09:15)
[2021-03-29] MEDS ORDERED: POLYETHYLENE (MIRALAX) 17 GM PACK PO ONE (09:30)
[2021-03-29] MEDS: ENOXAPARIN INJ 40 MG/0.4 ML SYR SQ SCH ×2 (10:05→22:08)
[2021-03-29] MEDS: PSYLLIUM 58.6% POWDER PACKET PO SCH (13:53)
--- NOTE | 2021-03-29 14:20 | Hospitalist Progress Note ---
Date of Service March 29, 2021 Assessment & Plan (1) Abdominal pain: Sandrine Cassidy is a 40y/o female with PMH significant for Factor V leiden, history of pulmonary embolisms & DVTs, ovarian cysts, and migraines; who presents for concerns of persistent nausea, vomiting, and abdominal pain. Abdominal pain: -Suspect constipation versus abdominal migraine by history -Potential contributions to abdominal pain from anxiety over uncertainty of potential disease -Pelvic ultrasound:Stable size complex cystic lesion within left ovary with mild interval decrease in septated solid component. Differential diagnosis include functional follicle or hemorrhagic cyst; however neoplastic etiology cannot be completely ruled out. Short-term follow-up in 6 weeks is recommended. Right ovary surgically absent. -CT abdomen/pelvis:Question cystitis. Correlation with clinical findings and urinalysis. No signs of ischemia. Large stool burden -UA/history not consistent with cystitis -Sumatriptan 6 mg SQ given in ED with slight improvement of abdominal pain -Patient may benefit from additional doses (max 6 doses weekly) -Will attempt to avoid narcotic medications as this has not provided any benefit as outpatient or in ED metamucil given for constipation will add BID miralax as well to try to promote a bowel movement today Headache Patient with headache, tachycardia and lower blood pressure today APpears to be somewhat dehydrated will give liter of fluid Added toradol for headache pain. Suicidal risk: -One-to-one sitter placed for overnight observation given suicidal intent and thoughts -Psych consulted, appreciate recommendations. Discussed med options of titrating Zoloft to 100, or cross tapering to Cymbalta. she is continuing to think about this. - Ativan 0.5 mg q6h prn for severe anxiety With current SI, exacerbated/driven by medical condition and pain. We will continue to follow, continue one-to-one at this time. Depending on clinical progression and ongoing needs may require inpatient psychiatric hospitalization versus referral to outpatient services, see psych note for additional details. Factor V leiden mutation: -Chart review demonstrates positive factor V Leiden testing from 10/20/2015 -History of multiple PEs and DVTs -Recommend discontinuation of use of all hormonal contraceptives given this history Fibromyalgia: -Continue home gabapentin 600mg TID Diet: Regular, safety tray CODE STATUS: Full code DVT ppx: lovenox SQ (2) Migraines: (3) Ovarian cyst: (4) Fibromyalgia: (5) Factor V Leiden mutation: (6) Suicidal risk: Admission and Anticipated Discharge Date Admission Date: March 27, 2021 Supervising Physician Co-Signing Physician Notes Patient seen and examined independently of PGY-3 Dr. Trejo. Agree with history, exam findings, assessment and plan of care as outlined. In brief, Sandrine is a 40 year old female with history of a left complex ovarian cyst, chronic constipation admitted, factor V Leiden admitted with right sided abdominal pain. Today, she reports that she continues to be anxious. Feels that her mental health is at an all-time low considering that this has landed her in admission to the hospital. She continues to have some right lower quadrant pain. She is using the heating pad. She does think that much of the right lower quadrant pain that she is experiencing is probably from constipation. She has not had a bowel movement yet. She does feel that some of the pain may be gas related as well. She has used Colace with MiraLAX for constipation in the past with some improvement. She has also used simethicone in the past for gas type pain. She is feeling hopeful that with the MiraLAX and adding Colace she may have a bowel movement and her abdominal pain may improve. She is also hopeful that going forward we can find a bowel regimen that will prevent constipation and help with less painful bowel movements. She is very concerned about left ovarian cyst. She reports that the reason she had the right ovary removed was because she did have a cyst on the right side that have burst. It had caused her significant pain and she had been seen for this pain and felt dismissed because the imaging did not show appendicitis. Her care associate in [place] told her that the pain was actually from the fluid from the ruptured cyst causing irritation of the lining of the abdomen. She is very worried about the left ovarian cyst being enlarged and possibly rupturing. Her care associate had prescribed a progesterone only pill, norethindrone, but she has not actually started this yet because the care associate had instructed her to wait for her. Before she starts the pill. She is less concerned about using the pill for contraception as her had a vasectomy. She did previously have a Mirena IUD but then suddenly started having multiple medication allergies. The Mirena was only in place for about a month before she had it removed. She is not especially interested in a ParaGard if it does not also help with the ovarian cyst. Of note, she does have a history of factor V Leiden and prior VTE when she was on combined oral contraceptives. She reports that she had significant anxiety after about a week of Prozac. Her PCP had switched her to Zoloft. She does feel that she has more anxiety with the Zoloft at night. She then became anxious in the morning and throughout the day when she thought about the potential for anxiety at night with Zoloft. She had spoken with psychiatry about an SNRI, Cymbalta, and she is interested in possibly switching. She reports that her mom does have anxiety but there are no immediate family members that take any medications for pain. VS and nursing notes reviewed. Well appearing, but anxious. + bowel sounds. Tender in the right lower quadrant. No rebound. 1. abdominal pain. Suspect this is due to constipation. Lower suspicion for this right lower quadrant pain being from ovarian cyst, although possible that it is referred pain. Start miralax BID, colace BID and metamucil. Simethicone as needed. PO hydration, fiber rich diet. Nutrition recommendations appreciated. 2. SI in the setting of depression and anxiety. We spent quite a bit of time discussing the pros and cons of either continuing with Zoloft or doing a quick taper off the Zoloft to start Cymbalta. We will continue with Zoloft for now. Discussed that if she changes her mind we can always switch to Cymbalta. She is aware that Cymbalta may take several weeks to notice any change in her mood. She may have side effects such as nausea with Cymbalta. We discussed that there is a possibility that the nausea may go away as her body adjusts to the medication. Appreciate psych recommendations. At this time, the plan is for inpatient psychiatry--they will not have a bed until Wednesday. Case discussed with psychiatric liaison nurse. 3. Left ovarian cyst. We spent quite a bit of time discussing the risks and benefits of progesterone-based pills including norethindrone and drospirenone. Discussed that with factor V Leiden she is at risk of VTE even with the progesterone only pills. She would like to think about whether she would want to start the pills in conjunction with tapering off the Zoloft and starting Cymbalta. Other issues stable. Dispo: pending clinical improvement. Subjective Sandrine is resting today, she is in mild discomfort. Feels that she is very constipated. No BM since being inpatient and started to have very hard straining bowel movements since the pain started. To the point that she bleeds. She also endorses a headache this morning behind her eyes, tight 6/10. No SI at the moment but does tell me when her pain gets severe she has these thoughts. She thinks about taking all of her pills to kill herself. Review of Systems Review of Systems: All systems reviewed & are unremarkable except as noted in HPI & below Physical Exam Physical Exam: Constitutional: Well appearing 40 year old woman resting comfortably in bed watching television, 1 to 1 with her Eyes: PERRLA, EOMMI b/l ENMT: NAD Respiratory: Regular rate, no accessory muscle use, lung sounds vesicular in all lung watson Cardiovascular: regular rate regular rhythm, no m/r/s/g GI: Abdomen soft mildly tender throughout, worse RLQ, normal bowel sounds Skin: Warm dry no rashes Results & Data Results & Data ([facility]) Vital Signs (Past 12 Hours) Vital Signs Temp Pulse Resp BP BP Pulse Ox 03/29/21 07:12 37.1 C 95 H 16 92/59 L 94 03/28/21 23:30 37.1 C 95 H 16 96/63 L 94 Resident Activity Tracking Resident Involvement: Resident Care Provided Care Provided: Adult Hospital Medicine (1) Ovarian cyst Laterality: left Qualified Code(s): N83.202 - Unspecified ovarian cyst, left side (2) Migraines Intractability: intractable Migraine type: abdominal Qualified Code(s): G43.D1 - Abdominal migraine, intractable (3) Abdominal pain Abdominal location: lower abdomen, unspecified Qualified Code(s): R10.30 - Lower abdominal pain, unspecified
[2021-03-29] MEDS: KETOROLAC TROMETHAMINE 15 MG/ML VIAL IV PRN (20:02)
[2021-03-29] MEDS: LORazepam 0.5 MG/1 ML VIAL IV PRN (20:03)
[2021-03-29] MEDS: POLYETHYLENE (MIRALAX) 17 GM PACK PO SCH (20:14)
[2021-03-29] MEDS: DOCUSATE SODIUM 100 MG CAP PO SCH (20:14)
--- NOTE | 2021-03-29 20:20 | Billing Data ---
Date of Service March 29, 2021 Coding Level of Care Code 66484 Initial Inpt Care Lvl 2
[2021-03-30 06:26] LABS: Hematocrit (blood only) 34.1 % (37-47); Hemoglobin 11.5 g/dL (12.0-16.0); Mean Corpuscular Hemoglobin 30.1 pg (25-34); Mean Corpuscular Hgb Conc 33.7 g/dL (32-36); Mean Corpuscular Volume 89.3 fL (80-100); Mean Platelet Volume 10.5 fL (7.4-10.4); Platelet Count 287 K/uL (130-400); RDW Coefficient of Variation 14.6 % (11.5-14.5); RDW Standard Deviation 48.1 fL (36.4-46.3); Red Blood Count 3.82 M/uL (4.2-5.4); White Blood Count 6.47 K/uL (4.8-10.8)
[2021-03-30 07:06] LABS: Albumin Level 2.9 gm/dl (3.4-5.0); BUN Creatinine Ratio 8.3 (10-20); Creatinine Clr Calc Pharmacy 204.6 ml/min; Est GFR (African American) 147.5 ml/min; Est GFR (Non-African American) 127.2 ml/min; Potassium 3.5 mmol/L (3.5-5.1)
[2021-03-30 07:09] LABS: Bilirubin,Total 0.3 mg/dl (0.2-1); Globulin 2.9 gm/dl (2.5-4.0); Total Protein 5.8 gm/dl (6.4-8.2)
[2021-03-30] MEDS: KETOROLAC TROMETHAMINE 15 MG/ML VIAL IV PRN ×2 (09:38→16:21)
[2021-03-30] MEDS: ONDANSETRON INJ 2 MG/ML 2 ML VIAL IV PRN ×2 (09:38→16:22)
[2021-03-30] MEDS: DOCUSATE SODIUM 100 MG CAP PO SCH ×2 (09:50→21:04)
[2021-03-30] MEDS: GABAPENTIN 600 MG TAB PO SCH ×3 (09:51→21:04)
[2021-03-30] MEDS: METOPROLOL TARTRATE 50 MG TAB PO SCH (09:51)
[2021-03-30] MEDS: SERTRALINE HCL 50 MG TABLET PO SCH (09:51)
[2021-03-30] MEDS: PSYLLIUM 58.6% POWDER PACKET PO SCH (09:51)
[2021-03-30] MEDS: POLYETHYLENE (MIRALAX) 17 GM PACK PO SCH (09:51)
[2021-03-30] MEDS: ENOXAPARIN INJ 40 MG/0.4 ML SYR SQ SCH ×2 (10:08→21:04)
--- NOTE | 2021-03-30 12:33 | Hospitalist Progress Note ---
Date of Service March 30, 2021 Assessment & Plan (1) Abdominal pain: Sandrine Cassidy is a 40y/o female with PMH significant for Factor V leiden, history of pulmonary embolisms & DVTs, ovarian cysts, and migraines; who presents for concerns of persistent nausea, vomiting, and abdominal pain. Abdominal pain: -Suspect constipation versus abdominal migraine by history -Potential contributions to abdominal pain from anxiety over uncertainty of potential disease -Pelvic ultrasound:Stable size complex cystic lesion within left ovary with mild interval decrease in septated solid component. Differential diagnosis include functional follicle or hemorrhagic cyst; however neoplastic etiology cannot be completely ruled out. Short-term follow-up in 6 weeks is recommended. Right ovary surgically absent. -CT abdomen/pelvis:Question cystitis. Correlation with clinical findings and urinalysis. No signs of ischemia. Large stool burden -UA/history not consistent with cystitis -Sumatriptan 6 mg SQ given in ED with slight improvement of abdominal pain -Patient may benefit from additional doses (max 6 doses weekly) -Will attempt to avoid narcotic medications as this has not provided any benefit as outpatient or in ED metamucil colace and miralax TID to promote bowel movement, if not successful will get enema tomorrow Headache Patient with headache, tachycardia and lower blood pressure yesterday no bp's today APpears to be somewhat dehydrated will give liter of fluid and encourage aggressive PO intake Added toradol for headache pain. Suicidal risk: -One-to-one sitter placed for overnight observation given suicidal intent and thoughts -Psych consulted, appreciate recommendations. Discussed med options of titrating Zoloft to 100, or cross tapering to Cymbalta at length yesterday, Today she has decided to cross taper over to cymbalta, will give 25 zoloft today and tomorrow and start cymbalta on Wednesday per psych recommendations - Ativan 0.5 mg q6h prn for severe anxiety With current SI, exacerbated/driven by medical condition and pain. We will continue to follow, continue one-to-one at this time. Depending on clinical progression and ongoing needs may require inpatient psychiatric hospitalization versus referral to outpatient services, see psych note for additional details. - Today desiring to enter inpatient psychiatric care Factor V leiden mutation: -Chart review demonstrates positive factor V Leiden testing from 10/20/2015 -History of multiple PEs and DVTs -Recommend discontinuation of use of all hormonal contraceptives given this history -She is considering using mini pill to possibly help with her cyst Fibromyalgia: -Continue home gabapentin 600mg TID Diet: Regular, safety tray CODE STATUS: Full code DVT ppx: lovenox SQ (2) Migraines: (3) Ovarian cyst: (4) Fibromyalgia: (5) Factor V Leiden mutation: (6) Suicidal risk: Admission and Anticipated Discharge Date Admission Date: March 27, 2021 Supervising Physician Co-Signing Physician Notes Patient seen and examined independently of PGY-3 Dr. Trejo. Agree with history, exam findings, assessment and plan of care as outlined. In brief, Sandrine is a 40 year old female with history of a left complex ovarian cyst, chronic constipation admitted, factor V Leiden admitted with right sided abdominal pain. Today, she reports she was able to have a bowel movement. Did note the stool was a bit liquidy. VS and nursing notes reviewed. Well appearing, but anxious. + bowel sounds. Minimally tender in the right and left lower quadrants. No rebo und. 1. abdominal pain. Secondary to constipation. Continue with miralax BID. Can potentially decrease colace to daily. Continue with daily metamucil. Simethicone as needed. PO hydration, fiber rich diet. Nutrition recommendations appreciated. 2. SI in the setting of depression and anxiety. Tapering zoloft--down to 25mg. Then start cymbalta. At this time, the plan is for inpatient psychiatry--they will not have a bed until Wednesday. 3. Left ovarian cyst. Prescribed norethindrone pills by [facility]. Discussed that with factor V Leiden she is at risk of VTE even with the progesterone only pill s. Since we are tapering zoloft and starting cymbalta, we will hold off starting norethindrone for now. Could potentially start norethindrone in a week or so or when she starts her next period. Other issues stable. Medically appropriate for transfer to [address] [place] [address] tomorrow if no changes over night. Will need to have bowel regimen titrated on [address] [place] [address]. Dispo: pending transfer to [address] [place] [address] [facility] Unit on Wednesday. . Subjective Patient has been thinking a lot about her options and has decidedt aht she wants to pursue inpatient thereapy and she wants to taper off of her zoloft and start citalopram. Abdominal pain is really more of a fullness than a pain worst on left side this time. No bowel movements yet. Review of Systems Review of Systems: All systems reviewed & are unremarkable except as noted in HPI & below Physical Exam Physical Exam: Constitutional: Well appearing 40 year old woman resting comfortably in bed watching television, 1 to 1 with her Eyes: PERRLA, EOMMI b/l ENMT: NAD Respiratory: Regular rate, no accessory muscle use, lung sounds vesicular in all lung watson Cardiovascular: regular rate regular rhythm, no m/r/s/g GI: Abdomen soft mildly tender throughout, worse LLQ, normal bowel sounds Skin: Warm dry no rashes Resident Activity Tracking Resident Involvement: Resident Care Provided Care Provided: Adult Hospital Medicine (1) Ovarian cyst Laterality: left Qualified Code(s): N83.202 - Unspecified ovarian cyst, left side (2) Migraines Intractability: intractable Migraine type: abdominal Qualified Code(s): G43.D1 - Abdominal migraine, intractable (3) Abdominal pain Abdominal location: lower abdomen, unspecified Qualified Code(s): R10.30 - Lower abdominal pain, unspecified
[2021-03-30] MEDS ORDERED: POLYETHYLENE (MIRALAX) 17 GM PACK PO ONE (14:15)
[2021-03-30] MEDS: ACETAMINOPHEN 325 MG TAB PO PRN (15:15)
[2021-03-30] MEDS: LORazepam 0.5 MG/1 ML VIAL IV PRN (17:05)
[2021-03-30] MEDS ORDERED: POLYETHYLENE (MIRALAX) 17 GM PACK PO SCH (21:00)
[2021-03-31] MEDS: ONDANSETRON INJ 2 MG/ML 2 ML VIAL IV PRN ×2 (02:42→18:52)
[2021-03-31] MEDS: LORazepam 0.5 MG/1 ML VIAL IV PRN ×2 (02:55→14:20)
[2021-03-31] MEDS: DOCUSATE SODIUM 100 MG CAP PO SCH ×2 (08:11→21:00)
[2021-03-31] MEDS: SERTRALINE HCL 50 MG TABLET PO SCH (08:12)
[2021-03-31] MEDS: METOPROLOL TARTRATE 50 MG TAB PO SCH (08:12)
[2021-03-31] MEDS: GABAPENTIN 600 MG TAB PO SCH ×3 (08:13→21:04)
[2021-03-31] MEDS: SIMETHICONE 80 MG CHEW PO PRN (08:13)
[2021-03-31] MEDS: PSYLLIUM 58.6% POWDER PACKET PO SCH (08:13)
[2021-03-31] MEDS: ACETAMINOPHEN 325 MG TAB PO PRN ×2 (08:21→18:53)
[2021-03-31 08:40] LABS: BUN Creatinine Ratio 7.6 (10-20); Calcium 8.3 mg/dl (8.5-10.1); Creatinine Clr Calc Pharmacy 169.2 ml/min; Est GFR (African American) 138.5 ml/min; Est GFR (Non-African American) 119.5 ml/min; Potassium 3.7 mmol/L (3.5-5.1)
[2021-03-31] MEDS ORDERED: POLYETHYLENE (MIRALAX) 17 GM PACK PO SCH (09:00)
[2021-03-31] MEDS ORDERED: SOD PHOSPHATE/SOD BIPHOSPHATE ENEMA 132 ML BTL PR PRN (10:13)
[2021-03-31] MEDS ORDERED: SOD PHOSPHATE/SOD BIPHOSPHATE ENEMA 132 ML BTL PR STA (11:34)
[2021-03-31] MEDS: ENOXAPARIN INJ 40 MG/0.4 ML SYR SQ SCH ×2 (11:54→21:04)
--- NOTE | 2021-03-31 12:06 | Discharge Summary ---
Date of Service March 31, 2021 Admission HPI Per Admitting Provider Sandrine Cassidy is a 40y/o female with PMH significant for Factor V leiden, history of pulmonary embolisms & DVTs, ovarian cysts, and migraines; who presents for concerns of persistent nausea, vomiting, and abdominal pain. Pain started again yesterday, and worsened throughout the night and into today. Similar to recent pains that she has been having, for which she was evaluated by her OFFAL BALER and ultimately led to her being diagnosed with a left ovarian cyst. Did previously have ovarian cysts on the right ovary that had become hemorrhagic and ultimately required removal. Ultrasound done 2 weeks ago demonstrated that this ovarian cyst likely was hemorrhagic, and at that time it was recommended that she have follow-up in 6 weeks for further evaluation. Was given oxycodone by her OFFAL [employer] provider to help address this pain, however this has not provided any relief for the pain. The only thing that she has found to be somewhat helpful is a heating pad over her lower abdomen. Over this same 6 weeks, she h as also been intermittently dealing with constipation for which she has been trying to eat a supervisor bottle [employer] clean[employer] diet and has been intermittently using enemas in order to resolve, is scheduled for evaluation with GI and potentially colonoscopy in April given this abdominal pain and concern for constipation. Additionally on further discussions, she remarks that she has also been having migraines over these last 6 weeks that have been occurring more frequently, and might have preceded the start of her abdominal pain. She does intermittently get migraines but rarely takes anything to stop them, usually trying to stay in a dark quiet place until there gone. Intermittently utilizes medical marijuana to address her fibromyalgia pain, but has not been using this over the last 6 weeks. Endorses that she was previously on blood thinners (dabigatran per chart review) for factor V Leiden however stopped taking these medications. Is not certain if she was supposed to continue taking these medications as she never continue to discuss this with providers. Did not inform OFFAL BALER of this history as she had forgotten this history. During discussions with both ED provider and myself, patient endorses suicidal ideation at the thought of continuing to have abdominal pain or being alone. States "if I was being sent home tonight I would probably just take all of my pills to end it all." Endorses that she does have a baseline of anxiety for which she has recently been restarted on her Zoloft, and with this continued intermittent pain and not having an exact source of where her pain is this is caused her to feel suicidal, with frequent thoughts of harming herself. Desires to have someone sit with her in the hospital overnight as she is concerned that if she is alone while in the hospital she may attempt suicide. In the ED patient received: Tylenol, Zofran, fentanyl, Bentyl, Toradol, Reglan, oxycodone, and Ativan; with no improvement in her pain level or anxiety over pain. Admission Exam Per Admitting Provider Constitutional: WD/WN, vitals as above Eyes: PERRL, conjunctivae normal, anicteric sclerae Respiratory: normal respiratory effort, lungs clear to auscultation Auscultation: no crackles, no rales, no rhonchi and no wheezes Cardiovascular: Rate/Rhythm: regular rate and regular rhythm Heart Sounds: no gallop, no murmur and no cardiac rub Vessels: normal peripheral pulses; no JVD Extremities: no edema Gastrointestinal (Abdomen): Inspection/Auscultation: normal bowel sounds; abdomen not distended Percussion/Palpation: + abdomen tender (suprapubic/lower quadrants), abdomen soft and normal to percussion; no guarding and abdomen not rigid no rebound, negative drew's sign Musculoskeletal: no cyanosis or clubbing, extremities motor strength 5/5 Skin: no rashes, warm and dry Neurologic: PERRL, EOMI, accommodation nl, no face palsy, no dysarthria CN's II-XI intact bilaterally and moves all extremities Psychiatric: Orientation: alert and oriented x 3 Eye Contact: + poor eye contact Affect: + depressed affect and + tearful affect Suicidal Thoughts: + reports suicidal thoughts, + reports suicidal plan and + reports suicidal intent Insight: + poor insight Judgement: + poor judgement Principal Diagnosis Constipation, Suicidal Ideation Discharge Exam Constitutional WD/WN, vitals as above Eyes PERRL, conjunctivae normal, anicteric sclerae ENMT external ear and nose normal, oropharynx normal Respiratory normal respiratory effort, lungs clear to auscultation Cardiovascular RRR, no murmur, no edema Gastrointestinal (Abdomen) normal bowel sounds, soft, nontender, no hepatosplenomegaly Musculoskeletal no cyanosis or clubbing, extremities motor strength 5/5 Skin no rashes, warm and dry Neurologic PERRL, EOMI, accommodation nl, no face palsy, no dysarthria Psychiatric Orientation: alert and oriented x 3 Affect: + anxious affect Discharge Data Allergies Allergy/AdvReac Type Severity Reaction Status Date / Time doxycycline Allergy Unknown Hives and Verified 02/16/21 14:48 nausea. nitrofurantoin Allergy Unknown HIVES Verified 02/16/21 14:48 Sulfa (Sulfonamide Allergy Unknown ANAPHYLAXIS Verified 02/16/21 14:48 Antibiotics) amoxicillin Allergy Rash Unverified 03/27/21 17:12 blueberry Allergy Verified 03/31/21 14:11 ciprofloxacin [From Cipro] Allergy Rash Unverified 03/27/21 17:12 haloperidol [From Haldol] Allergy Rash Unverified 03/27/21 17:12 levofloxacin [From Levaquin] Allergy Hives Unverified 03/27/21 17:12 prochlorperazine Allergy Hives Unverified 03/27/21 17:12 [From Compazine] sulfamethoxazole Allergy Anaphylaxis Unverified 03/27/21 17:12 [From Bactrim] trimethoprim [From Bactrim] Allergy Anaphylaxis Unverified 03/27/21 17:12 Consultations 03/27/21 21:34 ED Decision to Admit Stat 03/27/21 22:32 Consult Psychiatry Routine 03/27/21 22:54 Consult Behavioral Health Liaison Routine Ordered Studies 03/27/21 13:53 CT abd pelvis IV con only Stat 03/27/21 15:12 US pelvic complete Stat US transvaginal Stat Hospital Course (1) Abdominal pain: Sandrine Cassidy is a 40y/o female with PMH significant for Factor V leiden, history of pulmonary embolisms & DVTs, ovarian cysts, and migraines; who presented for concerns of persistent nausea, vomiting, and abdominal pain. Abdominal pain: -Suspect constipation versus abdominal migraine by history, more convincing of constipation with patient's increased sympathetic drive from anxiety. -Pelvic ultrasound: Stable size complex cystic lesion within left ovary with mild interval decrease in septated solid component. Differential diagnosis include functional follicle or hemorrhagic cyst; however neoplastic etiology cannot be completely ruled out. Short-term follow-up in 6 weeks is recommended. Right ovary surgically absent. -CT abdomen/pelvis:Question cystitis. Correlation with clinical findings and urinalysis. No signs of ischemia. Large stool burden -UA/history not consistent with cystitis -Sumatriptan 6 mg SQ given in ED with slight improvement of abdominal pain -Patient may benefit from additional doses (max 6 doses weekly) -No further doses were required during stay. -Will attempt to avoid narcotic medications as this has not provided any benefit as outpatient or in ED -Patient treated with Colace, Metamucil, and Miralax TID -Patient also given Fleet Enema -Would recommend patient continue with daily Miralax (starting 1-2 doses daily, and up to 5 doses daily) for a "good bowel movement" every 1-2 days. Can increase/decrease miralax dosing based on previous days bowel movement or lack thereof. Suicidal risk: -One-to-one sitter placed for overnight observation given suicidal intent and thoughts -Psych consulted, appreciate recommendations. -Patient was agreeable to cross titration of Zoloft to Cymbalta -Starting Cymbalta on 04/01/21 and discontinuing Zoloft at that time per psych recommendations. -Ativan 0.5mg q6h was given PRN for severe anxiety while inpatient. -Patient agreeable and desiring inpatient psychiatric care. -Medically stable at this time for discharge to inpatient psych. Factor V Leiden mutation: -Chart review demonstrated positive factor V Leiden testing from 10/20/2015 -History of multiple PEs and DVTs -Recommend discontinuation of use of all hormonal contraceptives given this history -She is considering using mini pill to possibly help with her cyst - interested in starting a week after discharge. Would discuss with her PCP at that time. -Patient was given Lovenox SQ while inpatient for DVT prophlyaxis. Fibromyalgia: -Continued home gabapentin 600mg TID (2) Migraines: (3) Ovarian cyst: (4) Fibromyalgia: (5) Factor V Leiden mutation: (6) Suicidal risk: Total Time Total Time Spent Total Time Spent (In Minutes): <30 Discharge Plan Discharge Items Patient Disposition: Transfer Behavioral Health Fac Reason For Visit: ABDOMINAL MIGRAINE Discharge Diagnosis: Constipation, Suicidal ideation Condition on Discharge: Good Activity: Per Instructions section Non-emergency contact: Primary Care Provider and Psychiatrist Call non-emergency contact if: you have any medication questions, your symptoms worsen and your temperature is above 101 Follow-up/Referrals: Roberto Han [Primary Care Provider] - Diet: Regular Addtl Attending Provider Instructions: Sandrine Cassidy is a 40y/o female with PMH significant for Factor V leiden, history of pulmonary embolisms & DVTs, ovarian cysts, and migraines; who presents for concerns of persistent nausea, vomiting, and abdominal pain. Abdominal pain: -Suspect constipation versus abdominal migraine by history, more convincing of constipation with patient's increased sympathetic drive from anxiety. -Pelvic ultrasound: Stable size complex cystic lesion within left ovary with mild interval decrease in septated solid component. Differential diagnosis include functional follicle or hemorrhagic cyst; however neoplastic etiology cannot be completely ruled out. Short-term follow-up in 6 weeks is recommended. Right ovary surgically absent. -CT abdomen/pelvis:Question cystitis. Correlation with clinical findings and urinalysis. No signs of ischemia. Large stool burden -UA/history not consistent with cystitis -Sumatriptan 6 mg SQ given in ED with slight improvement of abdominal pain -Patient may benefit from additional doses (max 6 doses weekly) -No further doses were required during stay. -Will attempt to avoid narcotic medications as this has not provided any benefit as outpatient or in ED -Patient treated with Colace, Metamucil, and Miralax TID -Patient also given Fleet Enema -Patient had fairly large bowel movement overnight 03/31/21 -Would recommend patient continue with daily Miralax (starting 1-2 doses daily, and up to 5 doses daily) for a "good bowel movement" every 1-2 days. Can increase/decrease miralax dosing based on previous days bowel movement or lack thereof. Suicidal risk: -One-to-one sitter placed for overnight observation given suicidal intent and thoughts -Psych consulted, appreciate recommendations. -Patient was agreeable to cross titration of Zoloft to Cymbalta -Starting Cymbalta on 04/01/21 and discontinuing Zoloft at that time per psych recommendations. -Ativan 0.5mg q6h was given PRN for severe anxiety while inpatient. -Patient agreeable and desiring inpatient psychiatric care. -Medically stable at this time for discharge to inpatient psych. Factor V Leiden mutation: -Chart review demonstrated positive factor V Leiden testing from 10/20/2015 -History of multiple PEs and DVTs -Recommend discontinuation of use of all hormonal contraceptives given this history -She is considering using mini pill to possibly help with her cyst - interested in starting a week after discharge. Would discuss with her PCP at that time. -Patient was given Lovenox SQ while inpatient for DVT prophlyaxis. Fibromyalgia: -Continued home gabapentin 600mg TID Pending Studies at Discharge: No Stand-Alone Forms: My [facility] Medications and DC Order Prescriptions: New polyethylene glycol 3350 [Miralax] 17 gram Powder In Packet 17 g PO DAILY PRN (Reason: constipation) 30 Days Qty: 1 RF: 0 duloxetine [Cymbalta] 30 mg capsule,delayed release(DR/EC) 30 mg PO DAILY Qty: 30 RF: 0 Continued metoprolol tartrate 50 mg tablet 50 mg PO QAM RF: 0 ondansetron 4 mg tablet,disintegrating 4 mg PO Q8H PRN (Reason: nausea and vomiting) Qty: 30 RF: 0 oxycodone 5 mg tablet 5 - 10 mg PO Q6H PRN (Reason: pain) Qty: 12 RF: 0 gabapentin 600 mg tablet 600 mg PO TID RF: 0 Discontinued norethindrone (contraceptive) [Incassia] 0.35 mg tablet 0.25 mg PO DAILY RF: 0 sertraline 50 mg tablet 50 mg PO DAILY RF: 0 Discharge Orders: Discharge Order (Routine); Ordered 04/01/21 Ordered By: Otto Koch/Other Patient Handouts: Understanding the Mediterranean Diet, Treating C onstipation, High Fiber Diet Dc Admission Data Admit Date/Time: 03/27/21 21:06 Attending Provider: Sylvester Wong Admit Provider: Jermaine Tang Primary Care Provider: Roberto Han Other Providers: Nile Lott ; Dr Abdirahman ; Sherri Lopez ; Orion Martinez ; Sloane Kim Other Interventions: Discharge Summary Assessment (RN) Last Done: 04/01/21 10:11 Supervising Physician Co-Signing Physician Notes I personally examined the patient and verified all yen points of history and exam, discussed case, and agree with decision making with Dr Kraft. copious BMs. feels up to going to inpatient psych Vitals noted, in general she is awake and alert pleasantly anxious but asked good questions, no distress. HEENT normocephalic atraumatic mucous membranes moist. Breathing unlabored no accessory muscle use good effort. Abdominal pain/constipationbowels now moving. ongoing bowel regimen with miralax to treat/prevent recurrence. Suicidal ideationstable for transfer to inpatient psych Otherwise as above Resident Activity Tracking Resident Involvement: Resident Care Provided Care Provided: Adult Hospital Medicine
--- NOTE | 2021-03-31 14:30 | Hospitalist Progress Note ---
Date of Service March 31, 2021 Assessment & Plan (1) Abdominal pain: Sandrine Cassidy is a 40y/o female with PMH significant for Factor V leiden, history of pulmonary embolisms & DVTs, ovarian cysts, and migraines; who presented for concerns of persistent nausea, vomiting, and abdominal pain. Abdominal pain: -Suspect constipation versus abdominal migraine by history, more convincing of constipation with patient's increased sympathetic drive from anxiety. -Pelvic ultrasound: Stable size complex cystic lesion within left ovary with mild interval decrease in septated solid component. Differential diagnosis include functional follicle or hemorrhagic cyst; however neoplastic etiology cannot be completely ruled out. Short-term follow-up in 6 weeks is recommended. Right ovary surgically absent. -CT abdomen/pelvis:Question cystitis. Correlation with clinical findings and urinalysis. No signs of ischemia. Large stool burden -UA/history not consistent with cystitis -Sumatriptan 6 mg SQ given in ED with slight improvement of abdominal pain -Patient may benefit from additional doses (max 6 doses weekly) -No further doses given at this time. -Will attempt to avoid narcotic medications as this has not provided any benefit as outpatient or in ED -Bowel regiment with Colace, Metamucil, and Miralax TID -Patient also given Fleet Enema this AM with slight BM, continue to monitor -Would recommend patient continue with daily Miralax (starting 1-2 doses daily, and up to 5 doses daily) for a "good bowel movement" every 1-2 days. Can increase/decrease miralax dosing based on previous days bowel movement or lack thereof. Suicidal risk: -One-to-one sitter placed for overnight observation given suicidal intent and thoughts -Psych consulted, appreciate recommendations. -Patient was agreeable to cross titration of Zoloft to Cymbalta -Starting Cymbalta on 04/01/21 and discontinuing Zoloft at that time per psych recommendations. -Ativan 0.5mg q6h was given PRN for severe anxiety while inpatient. -Patient agreeable and desiring inpatient psychiatric care. -Medically stable at this time for discharge to inpatient psych. Factor V Leiden mutation: -Chart review demonstrated positive factor V Leiden testing from 10/20/2015 -History of multiple PEs and DVTs -Recommend discontinuation of use of all hormonal contraceptives given this history -She is considering using mini pill to possibly help with her cyst - interested in starting a week after discharge. Would discuss with her PCP at that time. -Lovenox SQ while inpatient for DVT prophylaxis. Fibromyalgia: -Continued home gabapentin 600mg TID Dispo: Med/Surg awaiting placement in inpatient psych. FEN: Regular DVT: Lovenox Code: Full (2) Migraines: (3) Ovarian cyst: (4) Fibromyalgia: (5) Factor V Leiden mutation: (6) Suicidal risk: Admission and Anticipated Discharge Date Admission Date: March 27, 2021 Supervising Physician Co-Signing Physician Notes I personally examined the patient and verified all yen points of history and exam, discussed case, and agree with decision making with Dr Kraft. Migue feels about the same, still has not really had much of any meaningful bowel movement. Vitals noted, in general she is awake and alert pleasantly anxious but asked good questions, no distress. HEENT normocephalic atraumatic mucous membranes moist. Breathing unlabored no accessory muscle use good effort. Abdominal pain/constipationcontinue bowel regimen, reasonable to give trial to enema today. Medically stable for inpatient psych. Suicidal ideationcontinue [id number] inpatient psych once they are accepting her. Otherwise as above Subjective Patient evaluated at the bedside this AM. Noting she had a "somewhat regular" bowel movement yesterday in addition to 2-3 "nuggets" throughout the night. Feels things are starting to move, but doing so slowly. Also noting she was having more SI overnight without plan. Much of her thoughts are that "I just want to ." She currently notes she is feeling bloated and constipated. Notes that her headache has significantly improved. Is looking forward to going to inpatient psych as she understands she needs more help than she has been getting outpatient. Denies fever, chills, SOB, chest pain, nausea, vomiting. Review of Systems Review of Systems: All systems reviewed & are unremarkable except as noted in Subjective Physical Exam Constitutional: WD/WN, vitals as above Eyes: PERRL, conjunctivae normal, anicteric sclerae ENMT: external ear and nose normal, oropharynx normal Respiratory: normal respiratory effort, lungs clear to auscultation Cardiovascular: RRR, no murmur, no edema Gastrointestinal (Abdomen): normal bowel sounds, soft, nontender, no hepatosplenomegaly Musculoskeletal: no cyanosis or clubbing, extremities motor strength 5/5 Skin: no rashes, warm and dry Neurologic: PERRL, EOMI, accommodation nl, no face palsy, no dysarthria Psychiatric: Orientation: alert and oriented x 3 Affect: + anxious affect Results & Data Results & Data ([facility]) Vital Signs (Past 12 Hours) Vital Signs Temp Pulse Resp BP Pulse Ox 03/31/21 07:44 37.1 C 88 16 95/61 L 95 Resident Activity Tracking Resident Involvement: Resident Care Provided Care Provided: Adult [facility] Medicine (1) Ovarian cyst Laterality: left Qualified Code(s): N83.202 - Unspecified ovarian cyst, left side (2) Migraines Intractability: intractable Migraine type: abdominal Qualified Code(s): G43.D1 - Abdominal migraine, intractable (3) Abdominal pain Abdominal location: lower abdomen, unspecified Qualified Code(s): R10.30 - Lower abdominal pain, unspecified
--- NOTE | 2021-03-31 15:00 | Communication Note ---
Date of Service: March 31, 2021 Patient was seen on the medical floors this afternoon. She continues to endorse poor mood with suicidal ideation. Patient was informed that she was recently started on medications which do take some time to work and we could attempt to continue her treatment on an outpatient basis, however patient still relays that she feels unsafe returning home at this time. Given her persistent suicidal ideation despite improvement of her abdominal symptoms, patient will likely necessitate inpatient psychiatric treatment for purposes of safety, stabilization, and further medication management. Patient did however just received a enema and passed only minimal amount of stool. It was discussed with the primary care team that patient will benefit from being able to finish her bowel movement prior to being transferred. Plan: Plan to admit patient on 04/01/2021 to inpatient psychiatric facility barring no medical complications overnight. Continue Cymbalta 30 mg p.o. every morning Utilize Ativan 1 mg p.o. [id number] anxiety
--- NOTE | 2021-03-31 17:53 | Billing Data ---
Date of Service March 31, 2021 Coding Level of Care Code 73258 Subseq Hosp Care Lvl 2
[2021-03-31] MEDS: POLYETHYLENE (MIRALAX) 17 GM PACK PO SCH ×2 (21:00→21:04)
[2021-04-01] MEDS: ONDANSETRON INJ 2 MG/ML 2 ML VIAL IV PRN (05:45)
[2021-04-01] MEDS: LORazepam 0.5 MG/1 ML VIAL IV PRN (06:29)
[2021-04-01] MEDS: ACETAMINOPHEN 325 MG TAB PO PRN (06:29)
[2021-04-01] MEDS: POLYETHYLENE (MIRALAX) 17 GM PACK PO SCH (08:45)
[2021-04-01] MEDS: DOCUSATE SODIUM 100 MG CAP PO SCH (08:45)
[2021-04-01] MEDS: PSYLLIUM 58.6% POWDER PACKET PO SCH (08:46)
[2021-04-01] MEDS: GABAPENTIN 600 MG TAB PO SCH (09:00)
[2021-04-01] MEDS ORDERED: DULoxetine HCL 30 MG CAP PO SCH (09:00)
[2021-04-01] MEDS: METOPROLOL TARTRATE 50 MG TAB PO SCH (09:09)
[2021-04-01] MEDS: KETOROLAC TROMETHAMINE 15 MG/ML VIAL IV PRN (09:15)
[2021-04-01] MEDS: SIMETHICONE 80 MG CHEW PO PRN (10:04)
--- NOTE | 2021-04-01 18:21 | Billing Data ---
Date of Service April 01, 2021 Coding Level of Care Code D/C Day Management <30 mins
== END 2021-04-01 10:53 ==
LOC: ED 11:24 → SUATTDRO 21:06 → 3E 21:06 → INTOOBSV 21:06 → OBSVTOIN 21:06 → 3E 22:04

== ENCOUNTER 2021-04-01 11:02 | Inpatient (IN) ==
[2021-04-01] MEDS ORDERED: ALUMINUM/MAGNESIUM SUSP 30 ML UDC PO PRN (11:24)
[2021-04-01] MEDS ORDERED: BISMUTH SUBSALICYLATE LIQD 236 ML PO PRN (11:24)
[2021-04-01] MEDS ORDERED: SODIUM CHLORIDE 0.65% NA SOLN 45 ML (OCEAN) PRN (11:24)
[2021-04-01] MEDS ORDERED: MAGNESIUM HYDROXIDE SUSP 30 ML UDC PO PRN (11:24)
[2021-04-01] MEDS: ACETAMINOPHEN 325 MG TAB PO PRN ×2 (13:27→19:57)
[2021-04-01] MEDS ORDERED: clonazePAM 0.5 MG TAB PO STA (13:56)
[2021-04-01] MEDS: GABAPENTIN 600 MG TAB PO SCH ×2 (14:29→19:57)
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
[2021-04-01] MEDS: hydrOXYzine HCl 25 MG TAB PO PRN (19:58)
[2021-04-01] MEDS: clonazePAM 0.5 MG TAB PO SCH (20:01)
[2021-04-02] MEDS: clonazePAM 0.5 MG TAB PO SCH ×2 (08:47→20:51)
[2021-04-02] MEDS: ASPIRIN 81 MG ECTAB PO SCH (08:47)
[2021-04-02] MEDS: GABAPENTIN 600 MG TAB PO SCH ×3 (08:47→20:51)
[2021-04-02] MEDS: METOPROLOL TARTRATE 50 MG TAB PO SCH ×2 (08:54→11:25)
[2021-04-02] MEDS ORDERED: DULoxetine HCL 30 MG CAP PO SCH (09:00)
--- NOTE | 2021-04-02 11:23 | Psychiatric Progress Note ---
Date of Service April 02, 2021 Impression / Recommendations Impression 4-year-old female presenting with depression and suicidal ideation in the context of longstanding medical issues and pain. Patient will benefit from inpatient hospitalization for safety, stabilization, medication management. (1) Major depressive disorder with current active episode: The patient was admitted to the [facility] ([facility] unit) on every 15 minute checks (behavioral with suicide precautions for safety. The patient will participate in group, recreational, and milieu therapies and will be offered additional individual and family sessions as clinically appropriate. We will plan to up titrate the dose of Cymbalta while adding Klonopin to stabilize her anxiety. Cymbalta ER 30mg PO qam, Klonopin 0.5mg BID 04/02- will continue with current dosages. Patient seems to be responding nicely to anxiolytic. Plan to increase duloxetine tomorrow. Inventory Assets Strengths: Supportive family Needs: Relief from pain and anxiety Risk Factors Assessment Male: No : Yes Do You Have Access To A Gun?: No Health Problems: Yes Mental Health Diagnoses: Yes Previous Attempt: No Previous Attempt; Highly Lethal: No Previous Attempt; Planned: No Previous Attempt; Didn't Tell Anyone: No Family History of Suicide: No Previous Psychiatric Hospitalization: No Smoker: No Interval History Chief Complaint "I'm okay, I slept better last night". Review of Systems Sleep Information Total Hours of Sleep: 6.5 Sleep Comments: pt on q-15 minute checks Meal Information Percent Meal Consumed - Breakfast: 50 Percent Meal Consumed - Lunch: 90 Percent Meal Consumed - Dinner: 50 Subjective Subjective Patient was seen & assessed and interval progress reviewed with treatment team nursing and social work. Patient reports some relief of anxiety. States that she had good effect of new clonazepam medication which also helped her to sleep. States mood is still low and numb. No side effects of the medication observed or reported. Patient reports poor appetite and decent sleep. Continues to asbestos remover her bowels appropriately with help of miralax. I spent 30 minutes with the patient, 50% of which was dedicated to counselling and coordination of care. Physical Exam Psychiatric Orientation: alert and oriented x 3 Apperance: appropriately groomed Eye Contact: + fair eye contact Motor Behavior: no abnormal motor movements Speech: normal rate/rhythm/volume of speech Affect: + depressed affect, + anxious affect and + flat affect Mood: + depressed mood and + anxious mood Thought Process: goal directed thought process Thought Content: reality based without delusions Suicidal Thoughts: + reports suicidal thoughts Homicidal Thoughts: denies homicidal thoughts Hallucinations: no auditory hallucinations Cognition: recent memory grossly intact Estimated Intelligence: average estimated intelligence Insight: + fair insight Judgement: + fair judgement Vital Signs (Past 24 Hours) Last Vital Signs Temp 36.5 C 04/02/21 11:16 Pulse 107 H 04/02/21 11:16 Resp 16 04/02/21 11:16 BP 111/82 04/02/21 11:16 Pulse Ox 99 04/02/21 11:16 Results & Data ([facility]) Current Inpatient Medications Current Inpatient Medications: Current Inpatient Medications Acetaminophen (Acetaminophen 325 Mg Tab) 650 mg PO Q4H PRN PRN Reason: Headache or Minor Fever Stop: 05/01/21 11:23 Last Admin: 04/01/21 19:57 Dose: 650 mg Documented by: Al Hydrox/Mg Hydrox/Simethicone (Aluminum/Magnesium Susp 30 Ml Udc) 30 ml PO Q4H PRN PRN Reason: GI Upset Stop: 05/01/21 11:23 Aspirin (Aspirin 81 Mg Ectab) 81 mg PO QAM [facility] Stop: 05/02/21 08:59 Last Admin: 04/02/21 08:47 Dose: 81 mg Documented by: Bismuth Subsalicylate (Bismuth Subsalicylate Liqd 236 Ml) 15 ml PO PRN PRN PRN Reason: Loose Stool Stop: 05/01/21 11:23 Clonazepam (Clonazepam 0.5 Mg Tab) 0.5 mg PO BID [facility] Stop: 05/01/21 20:59 Last Admin: 04/02/21 08:47 Dose: 0.5 mg Documented by: Duloxetine HCl (Duloxetine Hcl 30 Mg Cap) 30 mg PO DAILY [facility] Stop: 05/02/21 08:59 Last Admin: 04/02/21 08:47 Dose: 30 mg Documented by: Gabapentin (Gabapentin 600 Mg Tab) 600 mg PO TID [facility] Stop: 05/01/21 13:59 Last Admin: 04/02/21 08:47 Dose: 600 mg Documented by: Hydroxyzine HCl (Hydroxyzine Hcl 25 Mg Tab) 50 mg PO HSZ PRN PRN Reason: Insomnia Stop: 05/01/21 11:23 Hydroxyzine HCl (Hydroxyzine Hcl 25 Mg Tab) 25 mg PO Q4H PRN PRN Reason: Anxiety Stop: 05/01/21 11:23 Last Admin: 04/01/21 19:58 Dose: 25 mg Documented by: Magnesium Hydroxide (Magnesium Hydroxide Susp 30 Ml Udc) 30 ml PO DAILY PRN PRN Reason: Constipation Stop: 05/01/21 11:23 Metoprolol Tartrate (Metoprolol Tartrate 50 Mg Tab) 50 mg PO QAM [facility] Stop: 05/02/21 08:59 Last Admin: 04/02/21 08:54 Dose: Not Given Documented by: Ondansetron HCl (Ondansetron 4 Mg Od Tab) 4 mg PO Q8H PRN PRN Reason: Nausea And Vomiting Stop: 05/01/21 13:58 Polyethylene Glycol (Polyethylene (Miralax) 17 Gm Pack) 17 gm PO DAILY PRN PRN Reason: constipation Stop: 05/01/21 13:51 Sodium Chloride (Sodium Chloride 0.65% Na Soln 45 Ml ([place])) 1 - 2 sprays NA PRN PRN PRN Reason: Nasal Dryness/Congestion Stop: 05/01/21 11:23 Post Discharge Appointments Primary Care Physician Name Of Family Doctor: Dr. Han PCP Primary Care Date of Appointment with PCP: 04/10/21 Time of Appointment with PCP: 9:15am Contact Information Discharge Discharge Address: [address] [place] [address]
[2021-04-02] MEDS: ACETAMINOPHEN 325 MG TAB PO PRN ×2 (11:26→20:22)
[2021-04-02] MEDS: hydrOXYzine HCl 25 MG TAB PO PRN (20:23)
[2021-04-02] MEDS: POLYETHYLENE (MIRALAX) 17 GM PACK PO PRN (20:56)
[2021-04-03] MEDS: ASPIRIN 81 MG ECTAB PO SCH (08:49)
[2021-04-03] MEDS: clonazePAM 0.5 MG TAB PO SCH ×2 (08:49→21:16)
[2021-04-03] MEDS: GABAPENTIN 600 MG TAB PO SCH ×3 (08:49→21:16)
[2021-04-03] MEDS: DULoxetine HCL 60 MG CAP PO SCH (08:49)
[2021-04-03] MEDS: METOPROLOL TARTRATE 50 MG TAB PO SCH (08:49)
[2021-04-03] MEDS: ACETAMINOPHEN 325 MG TAB PO PRN ×2 (10:06→18:20)
[2021-04-03] MEDS: METOPROLOL TARTRATE 25 MG TAB PO SCH ×3 (10:59→21:16)
[2021-04-03] MEDS: POLYETHYLENE (MIRALAX) 17 GM PACK PO PRN (13:15)
--- NOTE | 2021-04-03 15:17 | Psychiatric Progress Note ---
Date of Service April 03, 2021 Impression / Recommendations Impression 4-year-old female presenting with depression and suicidal ideation in the context of longstanding medical issues and pain. Patient will benefit from inpatient hospitalization for safety, stabilization, medication management. (1) Major depressive disorder with current active episode: The patient was admitted to the [facility] ([facility] mental health unit) on every 15 minute checks (behavioral with suicide precautions for safety. The patient will participate in group, recreational, and milieu therapies and will be offered additional individual and family sessions as clinically appropriate. We will plan to up titrate the dose of Cymbalta while adding Klonopin to stabilize her anxiety. Cymbalta ER 30mg PO qam, Klonopin 0.5mg BID 04/03-- Cymbalta dose increased to 60mg PO qdaily. patient seems to be tolerating well. 04/02- will continue with current dosages. Patient seems to be responding nicely to anxiolytic. Plan to increase duloxetine tomorrow. Inventory Assets Strengths: Supportive family Needs: Relief from pain and anxiety Risk Factors Assessment Male: No : Yes Do You Have Access To A Gun?: No Health Problems: Yes Mental Health Diagnoses: Yes Previous Attempt: No Previous Attempt; Highly Lethal: No Previous Attempt; Planned: No Previous Attempt; Didn't Tell Anyone: No Family History of Suicide: No Previous Psychiatric Hospitalization: No Smoker: No Interval History Chief Complaint "I'm okay". Review of Systems Sleep Information Total Hours of Sleep: 6.5 Sleep Comments: pt on q-15 minute checks Meal Information Percent Meal Consumed - Breakfast: 75 Percent Meal Consumed - Lunch: 100 Percent Meal Consumed - Dinner: 50 Subjective Subjective Patient was seen & assessed and interval progress reviewed with treatment team nursing and social work Patient reports a stressful day due to family meeting. Patient also had lengthy conversation with therapist regarding prior traumas. Patient endorsing poor mood in the context of this. Denies side effects of the medication, but also not reporting any positive effects as well. Patient continues to have slight abdominal pain and constipation, requesting Colace. Per report patient is sleeping well and eating okay. No side effects of the medication observed. Attending groups and interacting with peers appropriately. I spent 30 minutes with the patient, 50% of which was dedicated to counselling and coordination of care. Physical Exam Psychiatric Orientation: alert and oriented x 3 Apperance: appropriately groomed Eye Contact: + fair eye contact Motor Behavior: no abnormal motor movements Speech: normal rate/rhythm/volume of speech Affect: + depressed affect, + anxious affect and + flat affect Mood: + depressed mood and + anxious mood Thought Process: goal directed thought process Thought Content: reality based without delusions Suicidal Thoughts: + reports suicidal thoughts Homicidal Thoughts: denies homicidal thoughts Hallucinations: no auditory hallucinations Cognition: recent memory grossly intact Estimated Intelligence: average estimated intelligence Insight: + fair insight Judgement: + fair judgement Vital Signs (Past 24 Hours) Last Vital Signs Temp 36.7 C 04/03/21 06:45 Pulse 106 H 04/03/21 13:25 Resp 16 04/03/21 06:45 BP 117/79 04/03/21 13:25 Pulse Ox 99 04/02/21 11:16 Results & Data ([facility]) Current Inpatient Medications Current Inpatient Medications: Current Inpatient Medications Acetaminophen (Acetaminophen 325 Mg Tab) 650 mg PO Q4H PRN PRN Reason: Headache or Minor Fever Stop: 05/01/21 11:23 Last Admin: 04/03/21 10:06 Dose: 650 mg Documented by: Al Hydrox/Mg Hydrox/Simethicone (Aluminum/Magnesium Susp 30 Ml Udc) 30 ml PO Q4H PRN PRN Reason: GI Upset Stop: 05/01/21 11:23 Aspirin (Aspirin 81 Mg Ectab) 81 mg PO QAM [facility] Stop: 05/02/21 08:59 Last Admin: 04/03/21 08:49 Dose: 81 mg Documented by: Bismuth Subsalicylate (Bismuth Subsalicylate Liqd 236 Ml) 15 ml PO PRN PRN PRN Reason: Loose Stool Stop: 05/01/21 11:23 Clonazepam (Clonazepam 0.5 Mg Tab) 0.5 mg PO BID [facility] Stop: 05/01/21 20:59 Last Admin: 04/03/21 08:49 Dose: 0.5 mg Documented by: Duloxetine HCl (Duloxetine Hcl 60 Mg Cap) 60 mg PO DAILY [facility] Stop: 05/03/21 08:59 Last Admin: 04/03/21 08:49 Dose: 60 mg Documented by: Gabapentin (Gabapentin 600 Mg Tab) 600 mg PO TID [facility] Stop: 05/01/21 13:59 Last Admin: 04/03/21 13:28 Dose: 600 mg Documented by: Hydroxyzine HCl (Hydroxyzine Hcl 25 Mg Tab) 50 mg PO HSZ PRN PRN Reason: Insomnia Stop: 05/01/21 11:23 Hydroxyzine HCl (Hydroxyzine Hcl 25 Mg Tab) 25 mg PO Q4H PRN PRN Reason: Anxiety Stop: 05/01/21 11:23 Last Admin: 04/02/21 20:23 Dose: 25 mg Documented by: Magnesium Hydroxide (Magnesium Hydroxide Susp 30 Ml Udc) 30 ml PO DAILY PRN PRN Reason: Constipation Stop: 05/01/21 11:23 Metoprolol Tartrate (Metoprolol Tartrate 25 Mg Tab) 25 mg PO BID [facility] Stop: 05/03/21 09:14 Last Admin: 04/03/21 13:28 Dose: 25 mg Documented by: Ondansetron HCl (Ondansetron 4 Mg Od Tab) 4 mg PO Q8H PRN PRN Reason: Nausea And Vomiting Stop: 05/01/21 13:58 Polyethylene Glycol (Polyethylene (Miralax) 17 Gm Pack) 17 gm PO DAILY PRN PRN Reason: constipation Stop: 05/01/21 13:51 Last Admin: 04/03/21 13:15 Dose: 17 gm Documented by: Sodium Chloride (Sodium Chloride 0.65% Na Soln 45 Ml ([place])) 1 - 2 sprays NA PRN PRN PRN Reason: Nasal Dryness/Congestion Stop: 05/01/21 11:23 Post Discharge Appointments Primary Care Physician Name Of Family Doctor: Hilton Malik - Dr. Han Primary Care Date of Appointment with PCP: 04/10/21 Time of Appointment with PCP: 9:15 am Provider Appointment Comment: [id number] [place] [address], Sharif Specialist Name of Specialist: [facility] [employer] Phone Number for Specialist: [phone] Contact Information Discharge Discharge Address: [address] [place] [address]
[2021-04-03] MEDS: hydrOXYzine HCl 25 MG TAB PO PRN (19:50)
[2021-04-03] MEDS: ONDANSETRON 4 MG OD TAB PO PRN (19:52)
[2021-04-03] MEDS: DOCUSATE SODIUM 100 MG CAP PO SCH (21:16)
[2021-04-04] MEDS: DOCUSATE SODIUM 100 MG CAP PO SCH ×2 (09:10→20:44)
[2021-04-04] MEDS: ASPIRIN 81 MG ECTAB PO SCH (09:10)
[2021-04-04] MEDS: GABAPENTIN 600 MG TAB PO SCH ×3 (09:10→20:44)
[2021-04-04] MEDS: clonazePAM 0.5 MG TAB PO SCH (09:10)
[2021-04-04] MEDS: METOPROLOL TARTRATE 25 MG TAB PO SCH ×2 (09:11→20:48)
[2021-04-04] MEDS: DULoxetine HCL 60 MG CAP PO SCH (10:51)
[2021-04-04] MEDS ORDERED: MAGNESIUM HYDROXIDE SUSP 30 ML UDC PO PRN (12:00)
[2021-04-04] MEDS: POLYETHYLENE (MIRALAX) 17 GM PACK PO PRN (13:04)
--- NOTE | 2021-04-04 13:27 | Psychiatric Progress Note ---
Date of Service April 04, 2021 Impression / Recommendations (1) Major depressive disorder with current active episode: The patient was admitted to the [facility] ([facility] mental health unit) on every 15 minute checks (behavioral with suicide precautions for safety. The patient will participate in group, recreational, and milieu therapies and will be offered additional individual and family sessions as clinically appropriate. We will plan to up titrate the dose of Cymbalta while adding Klonopin to stabilize her anxiety. Cymbalta ER 30mg PO qam, Klonopin 0.5mg BID 04/04patient possibly experiencing some GI side effects from Cymbalta, however will continue at this dose. Patient also complaining of persistent anxiety especially around nightime. Will increase clonazepam from 0.5mg twice daily to 0.5 mg every morning, 0.75mg nightly. 04/03-- Cymbalta dose increased to 60mg PO qdaily. patient seems to be tolerating well. 04/02- will continue with current dosages. Patient seems to be responding nicely to anxiolytic. Plan to increase duloxetine tomorrow. Risk Factors Assessment Male: No : Yes Do You Have Access To A Gun?: No Health Problems: Yes Mental Health Diagnoses: Yes Previous Attempt: No Previous Attempt; Highly Lethal: No Previous Attempt; Planned: No Previous Attempt; Didn't Tell Anyone: No Family History of Suicide: No Previous Psychiatric Hospitalization: No Smoker: No Interval History Chief Complaint "My stomach was bothering me". Review of Systems Sleep Information Total Hours of Sleep: 7.5 Sleep Comments: pt on q-15 minute checks Meal Information Percent Meal Consumed - Breakfast: 25 Percent Meal Consumed - Lunch: 100 Percent Meal Consumed - Dinner: 75 Subjective Subjective Patient was seen & assessed and interval progress reviewed with treatment team nursing and social work Per nursing report patient had a good night's sleep with approximately 7.5 hours. Was seen eating her meals and endorses a fair appetite. Has been compliant with medications. Has been attending groups and interacting appropriately with peers. Patient reported experiencing some abdominal cramping last night which she feels might of been related to to the increased dose of duloxetine. Patient had also asked for an additional dose of Colace earlier in the day and a conversation was had about the usually transient GI side effects of duloxetine. In light of this information, the decision was made to continue on the current regimen with hopes of the side effects subsiding. Of course this is complicated by patient's baseline of abdominal pain which she admittedly stated is difficult to discern from the new side effect. Regarding her mood, patient is reporting a slight improvement in her mood. Her affect is noticeably brighter. She does still endorse feelings of suicide as well as feels unsafe leaving the hospital at this time for fear that her anxiety will cause her to harm herself. Patient is endorsing anxiety worse at night, and is agreeable to up titration of clonazepam medication. I spent 30 minutes with the patient, 50% of which was dedicated to counselling and coordination of care. Physical Exam Psychiatric Orientation: alert and oriented x 3 Apperance: appropriately groomed Eye Contact: + fair eye contact Motor Behavior: no abnormal motor movements Speech: normal rate/rhythm/volume of speech Affect: + depressed affect, + anxious affect and + flat affect Mood: + depressed mood and + anxious mood Thought Process: goal directed thought process Thought Content: reality based without delusions Suicidal Thoughts: + reports suicidal thoughts Homicidal Thoughts: denies homicidal thoughts Hallucinations: no auditory hallucinations Cognition: recent memory grossly intact Estimated Intelligence: average estimated intelligence Insight: + fair insight Judgement: + fair judgement Vital Signs (Past 24 Hours) Last Vital Signs Temp 36.8 C 04/04/21 06:39 Pulse 105 H 04/04/21 09:16 Resp 16 04/04/21 06:39 BP 101/70 04/04/21 09:16 Pulse Ox 98 04/03/21 21:17 Results & Data ([facility]) Current Inpatient Medications Current Inpatient Medications: Current Inpatient Medications Acetaminophen (Acetaminophen 325 Mg Tab) 650 mg PO Q4H PRN PRN Reason: Headache or Minor Fever Stop: 05/01/21 11:23 Last Admin: 04/03/21 18:20 Dose: 650 mg Documented by: Al Hydrox/Mg Hydrox/Simethicone (Aluminum/Magnesium Susp 30 Ml Udc) 30 ml PO Q4H PRN PRN Reason: GI Upset Stop: 05/01/21 11:23 Aspirin (Aspirin 81 Mg Ectab) 81 mg PO QAM [facility] Stop: 05/02/21 08:59 Last Admin: 04/04/21 09:10 Dose: 81 mg Documented by: Bismuth Subsalicylate (Bismuth Subsalicylate Liqd 236 Ml) 15 ml PO PRN PRN PRN Reason: Loose Stool Stop: 05/01/21 11:23 Clonazepam (Clonazepam 0.5 Mg Tab) 0.5 mg PO QAM [facility] Stop: 05/05/21 08:59 Clonazepam (Clonazepam 0.25 Mg Tab) 0.75 mg PO HS OF[facility] Stop: 05/04/21 21:59 Docusate Sodium (Docusate Sodium 100 Mg Cap) 100 mg PO BID [facility] Stop: 05/03/21 20:59 Last Admin: 04/04/21 09:10 Dose: 100 mg Documented by: Duloxetine HCl (Duloxetine Hcl 60 Mg Cap) 60 mg PO DAILY [facility] Stop: 05/03/21 08:59 Last Admin: 04/04/21 10:51 Dose: 60 mg Documented by: Gabapentin (Gabapentin 600 Mg Tab) 600 mg PO TID [facility] Stop: 05/01/21 13:59 Last Admin: 04/04/21 09:10 Dose: 600 mg Documented by: Hydroxyzine HCl (Hydroxyzine Hcl 25 Mg Tab) 50 mg PO HSZ PRN PRN Reason: Insomnia Stop: 05/01/21 11:23 Hydroxyzine HCl (Hydroxyzine Hcl 25 Mg Tab) 25 mg PO Q4H PRN PRN Reason: Anxiety Stop: 05/01/21 11:23 Last Admin: 04/03/21 19:50 Dose: 25 mg Documented by: Magnesium Hydroxide (Magnesium Hydroxide Susp 30 Ml Udc) 30 ml PO BID PRN PRN Reason: Constipation Stop: 05/01/21 11:23 Metoprolol Tartrate (Metoprolol Tartrate 25 Mg Tab) 25 mg PO BID [facility] Stop: 05/03/21 09:14 Last Admin: 04/04/21 09:11 Dose: 25 mg Documented by: Ondansetron HCl (Ondansetron 4 Mg Od Tab) 4 mg PO Q8H PRN PRN Reason: Nausea And Vomiting Stop: 05/01/21 13:58 Last Admin: 04/03/21 19:52 Dose: 4 mg Documented by: Polyethylene Glycol (Polyethylene (Miralax) 17 Gm Pack) 17 gm PO DAILY PRN PRN Reason: constipation Stop: 05/01/21 13:51 Last Admin: 04/04/21 13:04 Dose: 17 gm Documented by: Sodium Chloride (Sodium Chloride 0.65% Na Soln 45 Ml ([place])) 1 - 2 sprays NA PRN PRN PRN Reason: Nasal Dryness/Congestion Stop: 05/01/21 11:23 Mental Health & Subst Abuse Tx Psychiatrist Name of Psychiatrist: PHN referral made Therapist Name of Therapist: PHN referral made Post Discharge Appointments Primary Care Physician Name Of Family Doctor: [facility] - Dr. Han Primary [facility] Date of Appointment with PCP: 04/19/21 Time of Appointment with PCP: 9:15 am Provider Appointment Comment: [address] [place] [address], [place] Specialist Name of Specialist: [facility] [employer] Phone Number for Specialist: [phone] Date of Appointment with Specialist: 04/15/21 Specialty Appointment Comment: [address] [place] [address] Other #1: Name of Aftercare Appointment: [facility] (GI)- Dr. Ziegler Phone Number of Aftercare Appointment: Date of Aftercare Appointment: 04/15/21 Time of Aftercare Appointment: 2pm Aftercare Appointment Comment: [address] [place] [address] Contact Information Discharge Discharge Address: [address] [place] [id number]
[2021-04-04] MEDS: clonazePAM 0.25 MG TAB PO SCH (19:12)
[2021-04-04] MEDS: ONDANSETRON 4 MG OD TAB PO PRN (20:46)
[2021-04-04] MEDS ORDERED: clonazePAM 0.25 MG TAB PO SCH ×2 (21:00→22:00)
[2021-04-05] MEDS: ASPIRIN 81 MG ECTAB PO SCH (09:10)
[2021-04-05] MEDS: GABAPENTIN 600 MG TAB PO SCH ×3 (09:10→21:03)
[2021-04-05] MEDS: clonazePAM 0.5 MG TAB PO SCH (09:10)
[2021-04-05] MEDS: DOCUSATE SODIUM 100 MG CAP PO SCH ×2 (09:10→21:03)
[2021-04-05] MEDS: METOPROLOL TARTRATE 25 MG TAB PO SCH ×2 (09:11→21:03)
[2021-04-05] MEDS: DULoxetine HCL 60 MG CAP PO SCH (09:18)
[2021-04-05] MEDS: POLYETHYLENE (MIRALAX) 17 GM PACK PO PRN (12:55)
--- NOTE | 2021-04-05 13:21 | Psychiatric Progress Note ---
Date of Service April 05, 2021 Impression / Recommendations Impression 40 yo female with chronic abdominal pain, presents with SI (initially while on SSRI) and now cross tapered to Cymbalta trial. More vocal about guilt and other stressors potentially driving somatization. She remains unable to contract for safety outside of the hospital but does appear to brighten spontaneously at times and less delay in response. (1) Major depressive disorder with current active episode: 04/05/21--reviewed care by Dr. Martinez in italics. Continue current meds and treatment plan as improving slightly and side effects are still resolving. The patient was admitted to the [facility] ([facility] mental health unit) on every 15 minute checks (behavioral with suicide precautions for safety. The patient will participate in group, recreational, and milieu therapies and will be offered additional individual and family sessions as clinically appropriate. We will plan to up titrate the dose of Cymbalta while adding Klonopin to stabil ize her anxiety. Cymbalta ER 30mg PO qam, Klonopin 0.5mg BID 04/04patient possibly experiencing some GI side effects from Cymbalta, however will continue at this dose. Patient also complaining of persistent anxiety especially around nightime. Will increase clonazepam from 0.5mg twice daily to 0.5 mg every morning, 0.75mg nightly. 04/03-- Cymbalta dose increased to 60mg PO qdaily. patient seems to be tolerating well. 04/02- will continue with current dosages. Patient seems to be responding nicely to anxiolytic. Plan to increase duloxetine tomorrow. Inventory Assets Strengths: utilizes family support, active participant in her medical care Needs: increase insight into psychological factors contributing to her condition Risk Factors Assessment Male: No : Yes Do You Have Access To A Gun?: No Health Problems: Yes Mental Health Diagnoses: Yes Previous Attempt: No Previous Attempt; Highly Lethal: No Previous Attempt; Planned: No Previous Attempt; Didn't Tell Anyone: No Family History of Suicide: No Previous Psychiatric Hospitalization: No Smoker: No Interval History Chief Complaint "it was the anniversary of my so an emotional day on the phone with yesterday". Review of Systems Sleep Information Total Hours of Sleep: 7.75 Sleep Comments: pt on q-15 minute checks Meal Information Percent Meal Consumed - Breakfast: 75 Percent Meal Consumed - Lunch: 100 Percent Meal Consumed - Dinner: 50 Subjective Subjective Patient was seen & assessed and interval progress reviewed with nursing and social work. Patient known to me from floor consult. experiencing some mild N from Cymbalta but last evening better than night before. Still feels "my wires get crossed" and thinks about . She feels guilty for not being able to give children and that he is having to grieve that as well. Talked about how triggered she feels when has to explain 1 , no children at doctor's appointments given social stigma around and we discussed use of term termination for medical reasons in the future to reframe. Reports an episode of D after several days no BM. Physical Exam Psychiatric Orientation: alert and oriented x 3 Apperance: appropriately groomed Eye Contact: + fair eye contact Motor Behavior: no abnormal motor movements Speech: normal rate/rhythm/volume of speech Affect: + depressed affect and + anxious affect Mood: + depressed mood and + anxious mood Thought Process: goal directed thought process Thought Content: reality based without delusions Suicidal Thoughts: + reports suicidal thoughts (intermittent, no plan on unit) Homicidal Thoughts: denies homicidal thoughts Hallucinations: no auditory hallucinations Cognition: recent memory grossly intact Estimated Intelligence: average estimated intelligence Insight: + fair insight Judgement: + fair judgement Vital Signs (Past 24 Hours) Last Vital Signs Temp 36.8 C 04/05/21 06:32 Pulse 105 H 04/05/21 09:00 Resp 14 04/05/21 06:32 BP 96/85 L 04/05/21 09:00 Pulse Ox 99 04/05/21 06:32 Results & Data ([facility]) Current Inpatient Medications Current Inpatient Medications: Current Inpatient Medications Acetaminophen (Acetaminophen 325 Mg Tab) 650 mg PO Q4H PRN PRN Reason: Headache or Minor Fever Stop: 05/01/21 11:23 Last Admin: 04/03/21 18:20 Dose: 650 mg Documented by: Al Hydrox/Mg Hydrox/Simethicone (Aluminum/Magnesium Susp 30 Ml Udc) 30 ml PO Q4H PRN PRN Reason: GI Upset Stop: 05/01/21 11:23 Aspirin (Aspirin 81 Mg Ectab) 81 mg PO QAM [facility] Stop: 05/02/21 08:59 Last Admin: 04/05/21 09:10 Dose: 81 mg Documented by: Bismuth Subsalicylate (Bismuth Subsalicylate Liqd 236 Ml) 15 ml PO PRN PRN PRN Reason: Loose Stool Stop: 05/01/21 11:23 Clonazepam (Clonazepam 0.5 Mg Tab) 0.5 mg PO QAM [facility] Stop: 05/05/21 08:59 Last Admin: 04/05/21 09:10 Dose: 0.5 mg Documented by: Clonazepam (Clonazepam 0.25 Mg Tab) 0.75 mg PO DAILY@1900 [facility] Stop: 05/04/21 18:59 Last Admin: 04/04/21 19:12 Dose: 0.75 mg Documented by: Docusate Sodium (Docusate Sodium 100 Mg Cap) 100 mg PO BID [facility] Stop: 05/03/21 20:59 Last Admin: 04/05/21 09:10 Dose: 100 mg Documented by: Duloxetine HCl (Duloxetine Hcl 60 Mg Cap) 60 mg PO DAILY [facility] Stop: 05/03/21 08:59 Last Admin: 04/05/21 09:18 Dose: 60 mg Documented by: Gabapentin (Gabapentin 600 Mg Tab) 600 mg PO TID [facility] Stop: 05/01/21 13:59 Last Admin: 04/05/21 09:10 Dose: 600 mg Documented by: Hydroxyzine HCl (Hydroxyzine Hcl 25 Mg Tab) 50 mg PO HSZ PRN PRN Reason: Insomnia Stop: 05/01/21 11:23 Hydroxyzine HCl (Hydroxyzine Hcl 25 Mg Tab) 25 mg PO Q4H PRN PRN Reason: Anxiety Stop: 05/01/21 11:23 Last Admin: 04/03/21 19:50 Dose: 25 mg Documented by: Magnesium Hydroxide (Magnesium Hydroxide Susp 30 Ml Udc) 30 ml PO BID PRN PRN Reason: Constipation Stop: 05/01/21 11:23 Metoprolol Tartrate (Metoprolol Tartrate 25 Mg Tab) 25 mg PO BID [facility] Stop: 05/03/21 09:14 Last Admin: 04/05/21 09:11 Dose: Not Given Documented by: Ondansetron HCl (Ondansetron 4 Mg Od Tab) 4 mg PO Q8H PRN PRN Reason: Nausea And Vomiting Stop: 05/01/21 13:58 Last Admin: 04/04/21 20:46 Dose: 4 mg Documented by: Polyethylene Glycol (Polyethylene (Miralax) 17 Gm Pack) 17 gm PO DAILY PRN PRN Reason: constipation Stop: 05/01/21 13:51 Last Admin: 04/05/21 12:55 Dose: 17 gm Documented by: Sodium Chloride (Sodium Chloride 0.65% Na Soln 45 Ml ([place])) 1 - 2 sprays NA PRN PRN PRN Reason: Nasal Dryness/Congestion Stop: 05/01/21 11:23 Mental Health & Subst Abuse Tx Psychiatrist Name of Psychiatrist: PHN referral made Therapist Name of Therapist: PHN referral made Post Discharge Appointments Primary Care Physician Name Of Family Doctor: [facility] - Dr. Han Primary [facility] Date of Appointment with PCP: 04/19/21 Time of Appointment with PCP: 9:15 am Provider Appointment Comment: [address] [facility] [place] Specialist Name of Specialist: [facility] [employer] Phone Number for Specialist: [phone] Date of Appointment with Specialist: 04/15/21 Specialty Appointment Comment: [address] [place] [address] Contact Information Discharge Discharge Address: [address] [place] [address] (1) Major depressive disorder with current active episode Major depression recurrence: unspecified whether recurrent Major depression episode severity: severe Psychotic features: without psychotic features Qualified Code(s): F32.2 - Major depressive disorder, single episode, severe without psychotic features
[2021-04-05] MEDS: ACETAMINOPHEN 325 MG TAB PO PRN (13:40)
[2021-04-05] MEDS: clonazePAM 0.25 MG TAB PO SCH (18:40)
[2021-04-05] MEDS: hydrOXYzine HCl 25 MG TAB PO PRN (22:58)
[2021-04-06] MEDS: DOCUSATE SODIUM 100 MG CAP PO SCH ×2 (08:38→20:41)
[2021-04-06] MEDS: ASPIRIN 81 MG ECTAB PO SCH (08:38)
[2021-04-06] MEDS: clonazePAM 0.5 MG TAB PO SCH (08:38)
[2021-04-06] MEDS: METOPROLOL TARTRATE 25 MG TAB PO SCH ×2 (08:38→20:41)
[2021-04-06] MEDS: DULoxetine HCL 60 MG CAP PO SCH (08:38)
[2021-04-06] MEDS: GABAPENTIN 600 MG TAB PO SCH ×3 (08:38→20:41)
[2021-04-06] MEDS: POLYETHYLENE (MIRALAX) 17 GM PACK PO PRN (08:40)
--- NOTE | 2021-04-06 11:04 | Psychiatric Progress Note ---
Date of Service April 06, 2021 Impression / Recommendations Impression 40 yo female with chronic abdominal pain, presents with SI (initially while on SSRI) and now cross tapered to Cymbalta trial. More vocal about guilt and other stressors potentially driving somatization. She remains unable to contract for safety outside of the hospital but does appear to brighten spontaneously at times and less delay in response. 04/06/21--improving (1) Major depressive disorder with current active episode: 04/05/21--reviewed care by Dr. Martinez in italics. Continue current meds and treatment plan as improving slightly and side effects are still resolving. The patient was admitted to the [facility] ([facility] mental health unit) on every 15 minute checks (behavioral with suicide precautions for safety. The patient will participate in group, recreational, and milieu therapies and will be offered additional individual and family sessions as clinically appropriate. We will plan to up titrate the dose of Cymbalta while adding Klonopin to stabilize her anxiety. Cymbalta ER 30mg PO qam, Klonopin 0.5mg BID 04/04patient possibly experiencing some GI side effects from Cymbalta, however will continue at this dose. Patient also complaining of persistent anxiety especially around nightime. Will increase clonazepam from 0.5mg twice daily to 0.5 mg every morning, 0.75mg nightly. 04/03-- Cymbalta dose increased to 60mg PO qdaily. patient seems to be tolerating well. 04/02- will continue with current dosages. Patient seems to be responding nicely to anxiolytic. Plan to increase duloxetine tomorrow. (2) Abdominal pain: 04/06/21--less somtaic focus, constipation ongoing yet resolving, was able to discuss feelings of guilt for past elective termination and how ongoing pelvic issues trigger. Inventory Assets Strengths: utilizes family support, active participant in her medical care Needs: increase insight into psychological factors contributing to her condition Risk Factors Assessment Male: No : Yes Do You Have Access To A Gun?: No Health Problems: Yes Mental Health Diagnoses: Yes Previous Attempt: No Previous Attempt; Highly Lethal: No Previous Attempt; Planned: No Previous Attempt; Didn't Tell Anyone: No Family History of Suicide: No Previous Psychiatric Hospitalization: No Smoker: No Interval History Chief Complaint "Im sad my roommate is leaving". Review of Systems Sleep Information Total Hours of Sleep: 6.5 Sleep Comments: pt on q-15 minute checks Meal Information Percent Meal Consumed - Breakfast: 100 Percent Meal Consumed - Lunch: 50 Percent Meal Consumed - Dinner: 50 Subjective Subjective Patient was seen & assessed and interval progress reviewed with nursing and social work. states that she feels guilty when talks to on phone as knows he is lonely and she is self-focussed here. Nausea less bothersome last pm, states that she didn't need Zofran. still some occasional constipation and would like to use Miralax twice a day as she does at times at home. Sleep remains improved despite disruption due to noise on unit last night. Physical Exam Psychiatric Orientation: alert and oriented x 3 Apperance: appropriately groomed Eye Contact: + fair eye contact Motor Behavior: no abnormal motor movements Speech: normal rate/rhythm/volume of speech Affect: + depressed affect Mood: + depressed mood Thought Process: goal directed thought process Thought Content: reality based without delusions Suicidal Thoughts: denies suicidal thoughts Homicidal Thoughts: denies homicidal thoughts Hallucinations: no auditory hallucinations Cognition: recent memory grossly intact Estimated Intelligence: average estimated intelligence Insight: + fair insight Judgement: + fair judgement Vital Signs (Past 24 Hours) Last Vital Signs Temp 36.8 C 04/06/21 06:23 Pulse 99 H 04/06/21 06:25 Resp 14 04/06/21 06:23 BP 87/65 L 04/06/21 06:25 Pulse Ox 100 04/06/21 06:23 Results & Data ([facility]) Current Inpatient Medications Current Inpatient Medications: Current Inpatient Medications Acetaminophen (Acetaminophen 325 Mg Tab) 650 mg PO Q4H PRN PRN Reason: Headache or Minor Fever Stop: 05/01/21 11:23 Last Admin: 04/05/21 13:40 Dose: 650 mg Documented by: Al Hydrox/Mg Hydrox/Simethicone (Aluminum/Magnesium Susp 30 Ml Udc) 30 ml PO Q4H PRN PRN Reason: GI Upset Stop: 05/01/21 11:23 Aspirin (Aspirin 81 Mg Ectab) 81 mg PO QAM [facility] Stop: 05/02/21 08:59 Last Admin: 04/06/21 08:38 Dose: 81 mg Documented by: Bismuth Subsalicylate (Bismuth Subsalicylate Liqd 236 Ml) 15 ml PO PRN PRN PRN Reason: Loose Stool Stop: 05/01/21 11:23 Clonazepam (Clonazepam 0.5 Mg Tab) 0.5 mg PO QAM [facility] Stop: 05/05/21 08:59 Last Admin: 04/06/21 08:38 Dose: 0.5 mg Documented by: Clonazepam (Clonazepam 0.25 Mg Tab) 0.75 mg PO DAILY@1900 [facility] Stop: 05/04/21 18:59 Last Admin: 04/05/21 18:40 Dose: 0.75 mg Documented by: Docusate Sodium (Docusate Sodium 100 Mg Cap) 100 mg PO BID [facility] Stop: 05/03/21 20:59 Last Admin: 04/06/21 08:38 Dose: 100 mg Documented by: Duloxetine HCl (Duloxetine Hcl 60 Mg Cap) 60 mg PO DAILY [facility] Stop: 05/03/21 08:59 Last Admin: 04/06/21 08:38 Dose: 60 mg Documented by: Gabapentin (Gabapentin 600 Mg Tab) 600 mg PO TID [facility] Stop: 05/01/21 13:59 Last Admin: 04/06/21 08:38 Dose: 600 mg Documented by: Hydroxyzine HCl (Hydroxyzine Hcl 25 Mg Tab) 50 mg PO HSZ PRN PRN Reason: Insomnia Stop: 05/01/21 11:23 Last Admin: 04/05/21 22:58 Dose: 50 mg Documented by: Hydroxyzine HCl (Hydroxyzine Hcl 25 Mg Tab) 25 mg PO Q4H PRN PRN Reason: Anxiety Stop: 05/01/21 11:23 Last Admin: 04/03/21 19:50 Dose: 25 mg Documented by: Magnesium Hydroxide (Magnesium Hydroxide Susp 30 Ml Udc) 30 ml PO BID PRN PRN Reason: Constipation Stop: 05/01/21 11:23 Metoprolol Tartrate (Metoprolol Tartrate 25 Mg Tab) 25 mg PO BID [facility] Stop: 05/03/21 09:14 Last Admin: 04/06/21 08:38 Dose: Not Given Documented by: Ondansetron HCl (Ondansetron 4 Mg Od Tab) 4 mg PO Q8H PRN PRN Reason: Nausea And Vomiting Stop: 05/01/21 13:58 Last Admin: 04/04/21 20:46 Dose: 4 mg Documented by: Polyethylene Glycol (Polyethylene (Miralax) 17 Gm Pack) 17 gm PO BIDM [facility] Stop: 05/06/21 17:44 Sodium Chloride (Sodium Chloride 0.65% Na Soln 45 Ml ([place])) 1 - 2 sprays NA PRN PRN PRN Reason: Nasal Dryness/Congestion Stop: 05/01/21 11:23 Mental Health & Subst Abuse Tx Psychiatrist Name of Psychiatrist: PHN referral made Therapist Name of Therapist: PHN referral made Post Discharge Appointments Primary Care Physician Name Of Family Doctor: [facility] - Dr. Han [facility] Date of Appointment with PCP: 04/19/21 Time of Appointment with PCP: 9:15 am Provider Appointment Comment: 1414 [facility] [place] Specialist Name of Specialist: [facility] NEONATOLOGIST Phone Number for Specialist: [phone] Date of Appointment with Specialist: 04/15/21 Specialty Appointment Comment: [address] [place] [address] Contact Information Discharge Discharge Address: [address] [place] [address] (1) Major depressive disorder with current active episode Major depression recurrence: unspecified whether recurrent Major depression episode severity: severe Psychotic features: without psychotic features Qualified Code(s): F32.2 - Major depressive disorder, single episode, severe without psychotic features (2) Abdominal pain Abdominal location: lower abdomen, unspecified Qualified Code(s): R10.30 - Lower abdominal pain, unspecified
[2021-04-06] MEDS: POLYETHYLENE (MIRALAX) 17 GM PACK PO SCH (17:14)
[2021-04-06] MEDS: clonazePAM 0.25 MG TAB PO SCH (18:14)
[2021-04-06] MEDS: hydrOXYzine HCl 25 MG TAB PO PRN (22:17)
[2021-04-07] MEDS: clonazePAM 0.5 MG TAB PO SCH (08:44)
[2021-04-07] MEDS: DOCUSATE SODIUM 100 MG CAP PO SCH ×2 (08:44→20:29)
[2021-04-07] MEDS: ASPIRIN 81 MG ECTAB PO SCH (08:44)
[2021-04-07] MEDS: POLYETHYLENE (MIRALAX) 17 GM PACK PO SCH ×2 (08:44→16:57)
[2021-04-07] MEDS: DULoxetine HCL 60 MG CAP PO SCH (08:44)
[2021-04-07] MEDS: METOPROLOL TARTRATE 25 MG TAB PO SCH ×2 (08:45→20:28)
[2021-04-07] MEDS: GABAPENTIN 600 MG TAB PO SCH ×3 (08:45→20:29)
--- NOTE | 2021-04-07 15:53 | Psychiatric Progress Note ---
Date of Service April 07, 2021 Impression / Recommendations Impression 40 yo female with chronic abdominal pain, presents with SI (initially while on SSRI) and now cross tapered to Cymbalta trial. More vocal about guilt and other stressors potentially driving somatization. She remains unable to contract for safety outside of the hospital but does appear to brighten spontaneously at times and less delay in response. 04/06/21--improving (1) Major depressive disorder with current active episode: 04/05/21--reviewed care by Dr. Martinez in italics. Continue current meds and treatment plan as improving slightly and side effects are still resolving. The patient was admitted to the [facility] ([facility] mental health unit) on every 15 minute checks (behavioral with suicide precautions for safety. The patient will participate in group, recreational, and milieu therapies and will be offered additional individual and family sessions as clinically appropriate. We will plan to up titrate the dose of Cymbalta while adding Klonopin to stabilize her anxiety. Cymbalta ER 30mg PO qam, Klonopin 0.5mg BID 04/04patient possibly experiencing some GI side effects from Cymbalta, however will continue at this dose. Patient also complaining of persistent anxiety especially around nightime. Will increase clonazepam from 0.5mg twice daily to 0.5 mg every morning, 0.75mg nightly. 04/03-- Cymbalta dose increased to 60mg PO qdaily. patient seems to be tolerating well. 04/02- will continue with current dosages. Patient seems to be responding nicely to anxiolytic. Plan to increase duloxetine tomorrow. (2) Abdominal pain: 04/06/21--less somtaic focus, constipation ongoing yet resolving, was able to discuss feelings of guilt for past elective termination and how ongoing pelvic issues trigger. Inventory Assets Strengths: utilizes family support, active participant in her medical care Needs: increase insight into psychological factors contributing to her condition Risk Factors Assessment Male: No : Yes Do You Have Access To A Gun?: No Health Problems: Yes Mental Health Diagnoses: Yes Previous Attempt: No Previous Attempt; Highly Lethal: No Previous Attempt; Planned: No Previous Attempt; Didn't Tell Anyone: No Family History of Suicide: No Previous Psychiatric Hospitalization: No Smoker: No Interval History Chief Complaint "I am still so depressed, I find myself having suicidal thoughts almost every night.". Review of Systems Sleep Information Total Hours of Sleep: 7 Sleep Comments: pt on q-15 minute checks Meal Information Percent Meal Consumed - Breakfast: 75 Percent Meal Consumed - Lunch: 50 Percent Meal Consumed - Dinner: 75 Subjective Subjective Patient was seen & assessed and interval progress reviewed with treatment team nursing and social work Patient endorses a decent appetite with approximately 50 to 75% of meals eaten. She states that she is sleeping okay, but will often find herself with difficulty falling asleep at night. Patient states that her mood remains low, especially in the afternoons, where she will frequently have suicidal thoughts. Patient was told that some of these labs may be chronic in nature, however patient still maintains that she does not feel safe returning home at this time. Plan was discussed with patient potential increased evening clonazepam dose as she finds her self with these anxious thoughts at night. Patient in agreement at this time. I spent 30 minutes with the patient, 50% of which was dedicated to counselling and coordination of care. Physical Exam Psychiatric Orientation: alert and oriented x 3 Apperance: appropriately groomed Eye Contact: + fair eye contact Motor Behavior: no abnormal motor movements Speech: normal rate/rhythm/volume of speech Affect: + depressed affect, + anxious affect and + flat affect Mood: + depressed mood and + anxious mood Thought Process: goal directed thought process Thought Content: reality based without delusions Suicidal Thoughts: denies suicidal thoughts Homicidal Thoughts: denies homicidal thoughts Hallucinations: no auditory hallucinations Cognition: recent memory grossly intact Estimated Intelligence: average estimated intelligence Insight: + fair insight Judgement: + fair judgement Vital Signs (Past 24 Hours) Last Vital Signs Temp 36.8 C 04/07/21 06:00 Pulse 88 04/07/21 06:32 Resp 17 04/07/21 06:00 BP 92/64 L 04/07/21 06:32 Pulse Ox 100 04/06/21 06:23 Results & Data (U) Current Inpatient Medications Current Inpatient Medications: Current Inpatient Medications Acetaminophen (Acetaminophen 325 Mg Tab) 650 mg PO Q4H PRN PRN Reason: Headache or Minor Fever Stop: 05/01/21 11:23 Last Admin: 04/05/21 13:40 Dose: 650 mg Documented by: Al Hydrox/Mg Hydrox/Simethicone (Aluminum/Magnesium Susp 30 Ml Udc) 30 ml PO Q4H PRN PRN Reason: GI Upset Stop: 05/01/21 11:23 Aspirin (Aspirin 81 Mg Ectab) 81 mg PO QAM [facility] Stop: 05/02/21 08:59 Last Admin: 04/07/21 08:44 Dose: 81 mg Documented by: Bismuth Subsalicylate (Bismuth Subsalicylate Liqd 236 Ml) 15 ml PO PRN PRN PRN Reason: Loose Stool Stop: 05/01/21 11:23 Clonazepam (Clonazepam 0.5 Mg Tab) 0.5 mg PO QAM [facility] Stop: 05/05/21 08:59 Last Admin: 04/07/21 08:44 Dose: 0.5 mg Documented by: Clonazepam (Clonazepam 1 Mg Tab) 1 mg PO DAILY@1900 [facility] Stop: 05/07/21 18:59 Docusate Sodium (Docusate Sodium 100 Mg Cap) 100 mg PO BID [facility] Stop: 05/03/21 20:59 Last Admin: 04/07/21 08:44 Dose: 100 mg Documented by: Duloxetine HCl (Duloxetine Hcl 60 Mg Cap) 60 mg PO DAILY [facility] Stop: 05/03/21 08:59 Last Admin: 04/07/21 08:44 Dose: 60 mg Documented by: Gabapentin (Gabapentin 600 Mg Tab) 600 mg PO TID [facility] Stop: 05/01/21 13:59 Last Admin: 04/07/21 14:01 Dose: 600 mg Documented by: Hydroxyzine HCl (Hydroxyzine Hcl 25 Mg Tab) 50 mg PO HSZ PRN PRN Reason: Insomnia Stop: 05/01/21 11:23 Last Admin: 04/06/21 22:17 Dose: 50 mg Documented by: Hydroxyzine HCl (Hydroxyzine Hcl 25 Mg Tab) 25 mg PO Q4H PRN PRN Reason: Anxiety Stop: 05/01/21 11:23 Last Admin: 04/03/21 19:50 Dose: 25 mg Documented by: Magnesium Hydroxide (Magnesium Hydroxide Susp 30 Ml Udc) 30 ml PO BID PRN PRN Reason: Constipation Stop: 05/01/21 11:23 Metoprolol Tartrate (Metoprolol Tartrate 25 Mg Tab) 25 mg PO BID [facility] Stop: 05/03/21 09:14 Last Admin: 04/07/21 08:45 Dose: Not Given Documented by: Ondansetron HCl (Ondansetron 4 Mg Od Tab) 4 mg PO Q8H PRN PRN Reason: Nausea And Vomiting Stop: 05/01/21 13:58 Last Admin: 04/04/21 20:46 Dose: 4 mg Documented by: Polyethylene Glycol (Polyethylene (Miralax) 17 Gm Pack) 17 gm PO BIDM [facility] Stop: 05/06/21 17:44 Last Admin: 04/07/21 08:44 Dose: 17 gm Documented by: Sodium Chloride (Sodium Chloride 0.65% Na Soln 45 Ml (Beatrice)) 1 - 2 sprays NA PRN PRN PRN Reason: Nasal Dryness/Congestion Stop: 05/01/21 11:23 Mental Health & Subst Abuse Tx Psychiatrist Name of Psychiatrist: [facility] Psychiatrist's Date of Appointment with Psychiatrist: 04/30/21 Time of Appointment with Psychiatrist: 9am Psychiatric Appointment Comment: via Doximity (virtual) Therapist Name of Therapist: [facility] Therapist's Date of Therapist Appointment: 04/11/21 Time of Therapist Appointment: 11:45am Therapy Appointment Comment: by phone Computer Tech Name of Computer Tech: none Post Discharge Appointments Primary Care Physician Name Of Family Doctor: [facility] - Dr. Han Primary [facility] Date of Appointment with PCP: 04/19/21 Time of Appointment with PCP: 9:15 am Provider Appointment Comment: [id number] Specialist Name of Specialist: [facility] Specialty Care: [facility] Phone Number for Specialist: [phone] Date of Appointment with Specialist: 04/15/21 Specialty Appointment Comment: [phone] [place] [address] Other #1: Name of Aftercare Appointment: [facility] ([facility])- Dr. Ziegler Phone Number of Aftercare Appointment: Date of Aftercare Appointment: 04/15/21 Time of Aftercare Appointment: 2pm Aftercare Appointment Comment: [address] [place] [address] Contact Information Discharge Discharge Address: [address] [place] [address] (1) Major depressive disorder with current active episode Major depression recurrence: unspecified whether recurrent Major depression episode severity: severe Psychotic features: without psychotic features Qualified Code(s): F32.2 - Major depressive disorder, single episode, severe without psychotic features (2) Abdominal pain Abdominal location: lower abdomen, unspecified Qualified Code(s): R10.30 - Lower abdominal pain, unspecified
[2021-04-07] MEDS: ACETAMINOPHEN 325 MG TAB PO PRN (17:04)
[2021-04-07] MEDS: clonazePAM 1 MG TAB PO SCH (18:25)
[2021-04-08] MEDS: clonazePAM 0.5 MG TAB PO SCH (09:02)
[2021-04-08] MEDS: ASPIRIN 81 MG ECTAB PO SCH (09:02)
[2021-04-08] MEDS: GABAPENTIN 600 MG TAB PO SCH ×3 (09:03→20:56)
[2021-04-08] MEDS: DULoxetine HCL 60 MG CAP PO SCH (09:03)
[2021-04-08] MEDS: DOCUSATE SODIUM 100 MG CAP PO SCH ×2 (09:03→20:56)
[2021-04-08] MEDS: POLYETHYLENE (MIRALAX) 17 GM PACK PO SCH ×2 (09:03→17:02)
[2021-04-08] MEDS: METOPROLOL TARTRATE 25 MG TAB PO SCH ×2 (09:03→20:52)
[2021-04-08] MEDS: ACETAMINOPHEN 325 MG TAB PO PRN ×2 (12:40→17:28)
--- NOTE | 2021-04-08 15:36 | Psychiatric Progress Note ---
Date of Service April 08, 2021 Impression / Recommendations Impression 40 yo female with chronic abdominal pain, presents with SI (initially while on SSRI) and now cross tapered to Cymbalta trial. More vocal about guilt and other stressors potentially driving somatization. She remains unable to contract for safety outside of the hospital but does appear to brighten spontaneously at times and less delay in response. 04/08/2021atient is benefiting from increased clonazepam dopa to aid with sleep and nighttime anxiety. Continues to have suicidal thoughts during the day which are unrelenting and cause her to be tearful. 04/06/21--patient seems to be improving somewhat. Acknowledging her anxiety instead of her somatic symptoms. (1) Major depressive disorder with current active episode: 04/05/21--reviewed care by Dr. Martinez in italics. Continue current meds and treatment plan as improving slightly and side effects are still resolving. The patient was admitted to the [facility] ([facility] mental health unit) on every 15 minute checks (behavioral with suicide precautions for safety. The patient will participate in group, recreational, and milieu therapies and will be offered additional individual and family sessions as clinically appropriate. We will plan to up titrate the dose of Cymbalta while adding Klonopin to stabilize her anxiety. Cymbalta ER 30mg PO qam, Klonopin 0.5mg BID 04/04patient possibly experiencing some GI side effects from Cymbalta, however will continue at this dose. Patient also complaining of persistent anxiety especially around nightime. Will increase clonazepam from 0.5mg twice daily to 0.5 mg every morning, 0.75mg nightly. 04/03-- Cymbalta dose increased to 60mg PO qdaily. patient seems to be tolerating well. 04/02- will continue with current dosages. Patient seems to be responding nicely to anxiolytic. Plan to increase duloxetine tomorrow. (2) Abdominal pain: 04/06/21--less somtaic focus, constipation ongoing yet resolving, was able to discuss feelings of guilt for past elective termination and how ongoing pelvic issues trigger. Inventory Assets Strengths: utilizes family support, active participant in her medical care Needs: increase insight into psychological factors contributing to her condition Risk Factors Assessment Male: No : Yes Do You Have Access To A Gun?: No Health Problems: Yes Mental Health Diagnoses: Yes Previous Attempt: No Previous Attempt; Highly Lethal: No Previous Attempt; Planned: No Previous Attempt; Didn't Tell Anyone: No Family History of Suicide: No Previous Psychiatric Hospitalization: No Smoker: No Interval History Chief Complaint "I just do not know what to do, the afternoons are so hard". Review of Systems Sleep Information Total Hours of Sleep: 7 Sleep Comments: pt on q-15 minute checks Meal Information Percent Meal Consumed - Breakfast: 50 Percent Meal Consumed - Lunch: 75 Percent Meal Consumed - Dinner: 50 Subjective Subjective Patient was seen & assessed and interval progress reviewed with treatment team nursing and social work. Patient was seen getting approximately 7 hours of sleep. Reports better sleep with increased dose of clonazepam. States that her meals are about 50% finish each time. Is seen interacting appropriately with peers and attending groups. Patient was seen laughing and joking in group, followed by crying and upset during the afternoon in the day room. She was asked about this discrepancy to which she replies that her mood swings come in the afternoon causing her to feel low. Patient was encouraged that the fact that her mood is not consistently low is a positive sign of the progress that she is making. I spent 30 minutes with the patient, 50% of which was dedicated to counselling and coordination of care. Physical Exam Psychiatric Orientation: alert and oriented x 3 Apperance: appropriately groomed Eye Contact: + fair eye contact Motor Behavior: no abnormal motor movements Speech: normal rate/rhythm/volume of speech Affect: + depressed affect, + anxious affect and + flat affect Mood: + depressed mood and + anxious mood Thought Process: goal directed thought process Thought Content: reality based without delusions Suicidal Thoughts: denies suicidal thoughts Homicidal Thoughts: denies homicidal thoughts Hallucinations: no auditory hallucinations Cognition: recent memory grossly intact Estimated Intelligence: average estimated intelligence Insight: + fair insight Judgement: + fair judgement Vital Signs (Past 24 Hours) Last Vital Signs Temp 36.5 C 04/08/21 06:41 Pulse 110 H 04/08/21 09:00 Resp 16 04/08/21 06:41 BP 108/77 04/08/21 09:00 Pulse Ox 100 04/06/21 06:23 Results & Data (U) Current Inpatient Medications Current Inpatient Medications: Current Inpatient Medications Acetaminophen (Acetaminophen 325 Mg Tab) 650 mg PO Q4H PRN PRN Reason: Headache or Minor Fever Stop: 05/01/21 11:23 Last Admin: 04/08/21 12:40 Dose: 650 mg Documented by: Al Hydrox/Mg Hydrox/Simethicone (Aluminum/Magnesium Susp 30 Ml Udc) 30 ml PO Q4H PRN PRN Reason: GI Upset Stop: 05/01/21 11:23 Aspirin (Aspirin 81 Mg Ectab) 81 mg PO QAM [facility] Stop: 05/02/21 08:59 Last Admin: 04/08/21 09:02 Dose: 81 mg Documented by: Bismuth Subsalicylate (Bismuth Subsalicylate Liqd 236 Ml) 15 ml PO PRN PRN PRN Reason: Loose Stool Stop: 05/01/21 11:23 Clonazepam (Clonazepam 0.5 Mg Tab) [facility] Stop: 05/05/21 08:59 Last Admin: 04/08/21 09:02 Dose: 0.5 mg Documented by: Clonazepam (Clonazepam 1 Mg Tab) 1 mg PO DAILY@1900 [facility] Stop: 05/07/21 18:59 Last Admin: 04/07/21 18:25 Dose: 1 mg Documented by: Docusate Sodium (Docusate Sodium 100 Mg Cap) 100 mg PO BID [facility] Stop: 05/03/21 20:59 Last Admin: 04/08/21 09:03 Dose: 100 mg Documented by: Duloxetine HCl (Duloxetine Hcl 60 Mg Cap) 60 mg PO DAILY [facility] Stop: 05/03/21 08:59 Last Admin: 04/08/21 09:03 Dose: 60 mg Documented by: Gabapentin (Gabapentin 600 Mg Tab) 600 mg PO TID [facility] Stop: 05/01/21 13:59 Last Admin: 04/08/21 13:57 Dose: 600 mg Documented by: Hydroxyzine HCl (Hydroxyzine Hcl 25 Mg Tab) 50 mg PO HSZ PRN PRN Reason: Insomnia Stop: 05/01/21 11:23 Last Admin: 04/06/21 22:17 Dose: 50 mg Documented by: Hydroxyzine HCl (Hydroxyzine Hcl 25 Mg Tab) 25 mg PO Q4H PRN PRN Reason: Anxiety Stop: 05/01/21 11:23 Last Admin: 04/03/21 19:50 Dose: 25 mg Documented by: Magnesium Hydroxide (Magnesium Hydroxide Susp 30 Ml Udc) 30 ml PO BID PRN PRN Reason: Constipation Stop: 05/01/21 11:23 Metoprolol Tartrate (Metoprolol Tartrate 25 Mg Tab) 25 mg PO BID [facility] Stop: 05/03/21 09:14 Last Admin: 04/08/21 09:03 Dose: 25 mg Documented by: Non-Formulary Medication (Own Medication) 1 dose PO HS [facility] Stop: 05/08/21 21:59 Ondansetron HCl (Ondansetron 4 Mg Od Tab) 4 mg PO Q8H PRN PRN Reason: Nausea And Vomiting Stop: 05/01/21 13:58 Last Admin: 04/04/21 20:46 Dose: 4 mg Documented by: Polyethylene Glycol (Polyethylene (Miralax) 17 Gm Pack) 17 gm PO BIDM [facility] Stop: 05/06/21 17:44 Last Admin: 04/08/21 09:03 Dose: 17 gm Documented by: Sodium Chloride (Sodium Chloride 0.65% Na Soln 45 Ml (Edgar)) 1 - 2 sprays NA PRN PRN PRN Reason: Nasal Dryness/Congestion Stop: 05/01/21 11:23 Mental Health & Subst Abuse Tx Psychiatrist Name of Psychiatrist: [facility] Psychiatrist's Date of Appointment with Psychiatrist: 04/30/21 Time of Appointment with Psychiatrist: 9am Psychiatric Appointment Comment: via D[employer]imity (virtual) Therapist Name of Therapist: [facility] Therapist's Date of Therapist Appointment: 04/11/21 Time of Therapist Appointment: 11:45am Therapy Appointment Comment: by phone Infectious Waste Technician Name of Infectious Waste Technician: none Post Discharge Appointments Primary Care Physician Name Of Family Doctor: [facility] - Dr. Han Primary [facility] Date of Appointment with PCP: 04/19/21 Time of Appointment with PCP: 9:15 am Provider Appointment Comment: [id number] Specialist Name of Specialist: [facility] Specialty Care: [facility] Phone Number for Specialist: [phone] Date of Appointment with Specialist: 04/16/21 Time of Appointment with Specialist: 9:45 Specialty Appointment Comment: [id number] [facility] [address] Other #1: Name of Aftercare Appointment: [facility] (GI)- Dr. Ziegler Phone Number of Aftercare Appointment: Date of Aftercare Appointment: 04/15/21 Time of Aftercare Appointment: 2pm Aftercare Appointment Comment: [address], [place] [address] Contact Information Discharge Discharge Address: [address] [place] [address] (1) Major depressive disorder with current active episode Major depression recurrence: unspecified whether recurrent Major depression episode severity: severe Psychotic features: without psychotic features Qualified Code(s): F32.2 - Major depressive disorder, single episode, severe without psychotic features (2) Abdominal pain Abdominal location: lower abdomen, unspecified Qualified Code(s): R10.30 - Lower abdominal pain, unspecified
[2021-04-08] MEDS: hydrOXYzine HCl 25 MG TAB PO PRN (16:22)
[2021-04-08] MEDS: clonazePAM 1 MG TAB PO SCH (20:07)
[2021-04-08] MEDS: NON-FORMULARY PATIENT'S OWN MED PO SCH (20:56)
[2021-04-08] MEDS ORDERED: [UNRECOGNIZED DRUG - OTHER] PO SCH (22:00)
[2021-04-09] MEDS: DULoxetine HCL 60 MG CAP PO SCH (08:59)
[2021-04-09] MEDS: DOCUSATE SODIUM 100 MG CAP PO SCH ×2 (08:59→21:01)
[2021-04-09] MEDS: ASPIRIN 81 MG ECTAB PO SCH (08:59)
[2021-04-09] MEDS: clonazePAM 0.5 MG TAB PO SCH (08:59)
[2021-04-09] MEDS: POLYETHYLENE (MIRALAX) 17 GM PACK PO SCH ×2 (09:00→17:06)
[2021-04-09] MEDS: GABAPENTIN 600 MG TAB PO SCH ×3 (09:00→20:56)
[2021-04-09] MEDS: METOPROLOL TARTRATE 25 MG TAB PO SCH ×2 (09:00→20:53)
[2021-04-09] MEDS: ACETAMINOPHEN 325 MG TAB PO PRN ×2 (09:00→15:11)
--- NOTE | 2021-04-09 14:09 | Psychiatric Progress Note ---
Date of Service April 09, 2021 Impression / Recommendations Impression 40 yo female with chronic abdominal pain, presents with SI (initially while on SSRI) and now cross tapered to Cymbalta trial. More vocal about guilt and other stressors potentially driving somatization. She remains unable to contract for safety outside of the hospital but does appear to brighten spontaneously at times and less delay in response. 04/08/2021atient is benefiting from increased clonazepam dopa to aid with sleep and nighttime anxiety. Continues to have suicidal thoughts during the day which are unrelenting and cause her to be tearful. 04/06/21--patient seems to be improving somewhat. Acknowledging her anxiety instead of her somatic symptoms. (1) Major depressive disorder with current active episode: 04/09/21--Patient is continuing on same reguimen with some improvement. Noted to have difficult day today with extra anxiety as she was spoken to regarding her discharge. 04/05/21--reviewed care by Dr. Martinez in italics. Continue current meds and treatment plan as improving slightly and side effects are still resolving. The patient was admitted to the [facility] ([facility] mental health unit) on every 15 minute checks (behavioral with suicide precautions for safety. The patient will participate in group, recreational, and milieu therapies and will be offered additional individual and family sessions as clinically appropriate. We will plan to up titrate the dose of Cymbalta while adding Klonopin to stabilize her anxiety. Cymbalta ER 30mg PO qam, Klonopin 0.5mg BID 04/04patient possibly experiencing some GI side effects from Cymbalta, however will continue at this dose. Patient also complaining of persistent anxiety especially around nightime. Will increase clonazepam from 0.5mg twice daily to 0.5 mg every morning, 0.75mg nightly. 04/03-- Cymbalta dose increased to 60mg PO qdaily. patient seems to be tolerating well. 04/02- will continue with current dosages. Patient seems to be responding nicely to anxiolytic. Plan to increase duloxetine tomorrow. (2) Abdominal pain: 04/06/21--less somtaic focus, constipation ongoing yet resolving, was able to discuss feelings of guilt for past elective termination and how ongoing pelvic issues trigger. Inventory Assets Strengths: utilizes family support, active participant in her medical care Needs: increase insight into psychological factors contributing to her condition Risk Factors Assessment Male: No : Yes Do You Have Access To A Gun?: No Health Problems: Yes Mental Health Diagnoses: Yes Previous Attempt: No Previous Attempt; Highly Lethal: No Previous Attempt; Planned: No Previous Attempt; Didn't Tell Anyone: No Family History of Suicide: No Previous Psychiatric Hospitalization: No Smoker: No Interval History Chief Complaint "I think Wednesday is okay, I guess" Review of Systems Sleep Information Total Hours of Sleep: 7.25 Sleep Comments: pt given vistaril per rn. pt on q-15 minute checks Meal Information Percent Meal Consumed - Breakfast: 100 Percent Meal Consumed - Lunch: 75 Percent Meal Consumed - Dinner: 50 Subjective Subjective Patient was seen & assessed and interval progress reviewed with treatment team nursing and social work. Patient reports a good night of sleep estimated at 7 hours. She states that she has been eating her meals and she hasn't had any difficultly with her bowels. Patient denies any side effects of her mediation and reports compliance without issue. No side effects observed. She was a little anxious and nervous regarding her proposed discharge date of Wednesday, but was somewhat comforted by the idea of having a therapy appointment that day as well as the medications continuing to work as the weeks go by. I spent 30 minutes with the patient, 50% of which was dedicated to counselling and coordination of care. Physical Exam Psychiatric Orientation: alert and oriented x 3 Apperance: appropriately groomed Eye Contact: + fair eye contact Motor Behavior: no abnormal motor movements Speech: normal rate/rhythm/volume of speech Affect: + depressed affect, + anxious affect and + flat affect Mood: + depressed mood and + anxious mood Thought Process: goal directed thought process Thought Content: reality based without delusions Suicidal Thoughts: denies suicidal thoughts Homicidal Thoughts: denies homicidal thoughts Hallucinations: no auditory hallucinations Cognition: recent memory grossly intact Estimated Intelligence: average estimated intelligence Insight: + fair insight Judgement: + fair judgement Vital Signs (Past 24 Hours) Last Vital Signs Temp 36.7 C 04/09/21 06:48 Pulse 104 H 04/09/21 06:52 Resp 16 04/09/21 06:48 BP 96/65 L 04/09/21 06:52 Pulse Ox 100 04/06/21 06:23 Results & Data ([facility]) Current Inpatient Medications Current Inpatient Medications: Current Inpatient Medications Acetaminophen (Acetaminophen 325 Mg Tab) 650 mg PO Q4H PRN PRN Reason: Headache or Minor Fever Stop: 05/01/21 11:23 Last Admin: 04/09/21 09:00 Dose: 650 mg Documented by: Al Hydrox/Mg Hydrox/Simethicone (Aluminum/Magnesium Susp 30 Ml Udc) 30 ml PO Q4H PRN PRN Reason: GI Upset Stop: 05/01/21 11:23 Aspirin (Aspirin 81 Mg Ectab) 81 mg PO QAM [facility] Stop: 05/02/21 08:59 Last Admin: 04/09/21 08:59 Dose: 81 mg Documented by: Bismuth Subsalicylate (Bismuth Subsalicylate Liqd 236 Ml) 15 ml PO PRN PRN PRN Reason: Loose Stool Stop: 05/01/21 11:23 Clonazepam (Clonazepam 0.5 Mg Tab) [facility] Stop: 05/05/21 08:59 Last Admin: 04/09/21 08:59 Dose: 0.5 mg Documented by: Clonazepam (Clonazepam 1 Mg Tab) 1 mg PO DAILY@1900 [facility] Stop: 05/07/21 18:59 Last Admin: 04/08/21 20:07 Dose: 1 mg Documented by: Docusate Sodium (Docusate Sodium 100 Mg Cap) 100 mg PO BID [facility] Stop: 05/03/21 20:59 Last Admin: 04/09/21 08:59 Dose: 100 mg Documented by: Duloxetine HCl (Duloxetine Hcl 60 Mg Cap) 60 mg PO DAILY [facility] Stop: 05/03/21 08:59 Last Admin: 04/09/21 08:59 Dose: 60 mg Documented by: Gabapentin (Gabapentin 600 Mg Tab) 600 mg PO TID [facility] Stop: 05/01/21 13:59 Last Admin: 04/09/21 09:00 Dose: 600 mg Documented by: Hydroxyzine HCl (Hydroxyzine Hcl 25 Mg Tab) 50 mg PO HSZ PRN PRN Reason: Insomnia Stop: 05/01/21 11:23 Last Admin: 04/06/21 22:17 Dose: 50 mg Documented by: Hydroxyzine HCl (Hydroxyzine Hcl 25 Mg Tab) 25 mg PO Q4H PRN PRN Reason: Anxiety Stop: 05/01/21 11:23 Last Admin: 04/08/21 16:22 Dose: 25 mg Documented by: Magnesium Hydroxide (Magnesium Hydroxide Susp 30 Ml Udc) 30 ml PO BID PRN PRN Reason: Constipation Stop: 05/01/21 11:23 Metoprolol Tartrate (Metoprolol Tartrate 25 Mg Tab) 25 mg PO BID [facility] Stop: 05/03/21 09:14 Last Admin: 04/09/21 09:00 Dose: 25 mg Documented by: Non-Formulary Medication (Non-Formulary Patient's Own Med) 1 ea PO HS [facility] Stop: 05/08/21 21:59 Last Admin: 04/08/21 20:56 Dose: 1 ea Documented by: Ondansetron HCl (Ondansetron 4 Mg Od Tab) 4 mg PO Q8H PRN PRN Reason: Nausea And Vomiting Stop: 05/01/21 13:58 Last Admin: 04/04/21 20:46 Dose: 4 mg Documented by: Polyethylene Glycol (Polyethylene (Miralax) 17 Gm Pack) 17 gm PO BIDM [facility] Stop: 05/06/21 17:44 Last Admin: 04/09/21 09:00 Dose: 17 gm Documented by: Sodium Chloride (Sodium Chloride 0.65% Na Soln 45 Ml ([place])) 1 - 2 sprays NA PRN PRN PRN Reason: Nasal Dryness/Congestion Stop: 05/01/21 11:23 Mental Health & Subst Abuse Tx Psychiatrist Name of Psychiatrist: [facility] Psychiatrist's Date of Appointment with Psychiatrist: 04/30/21 Time of Appointment with Psychiatrist: 9am Psychiatric Appointment Comment: via Doximity (virtual) Therapist Name of Therapist: [facility] Therapist's Date of Therapist Appointment: 04/11/21 Time of Therapist Appointment: 11:45am Therapy Appointment Comment: by phone Land Surveying Manager Name of Land Surveying Manager: none Post Discharge Appointments Primary Care Physician Name Of Family Doctor: [facility] - Dr. Han Primary [facility] Date of Appointment with PCP: 04/19/21 Time of Appointment with PCP: 9:15 am Provider Appointment Comment: [facility] [place] [address], Elizabeth Specialist Name of Specialist: [facility] Specialty Care: [facility] Phone Number for Specialist: [phone] Date of Appointment with Specialist: 04/16/21 Time of Appointment with Specialist: 9:45 Specialty Appointment Comment: [id number] [place] [address] Other #1: Name of Aftercare Appointment: [facility] (GI)- Dr. Ziegler Phone Number of Aftercare Appointment: Date of Aftercare Appointment: 04/15/21 Time of Aftercare Appointment: 2pm Aftercare Appointment Comment: [address] [place] [address] Contact Information Discharge Discharge Address: [address] [place] [id number] (1) Major depressive disorder with current active episode Major depression recurrence: unspecified whether recurrent Major depression episode severity: severe Psychotic features: without psychotic features Qualified Code(s): F32.2 - Major depressive disorder, single episode, severe without psychotic features (2) Abdominal pain Abdominal location: lower abdomen, unspecified Qualified Code(s): R10.30 - Lower abdominal pain, unspecified
[2021-04-09] MEDS: hydrOXYzine HCl 25 MG TAB PO PRN ×2 (15:10→20:57)
[2021-04-09] MEDS: clonazePAM 1 MG TAB PO SCH (19:00)
[2021-04-09] MEDS: NON-FORMULARY PATIENT'S OWN MED PO SCH (20:57)
[2021-04-10] MEDS: DULoxetine HCL 60 MG CAP PO SCH (08:54)
[2021-04-10] MEDS: GABAPENTIN 600 MG TAB PO SCH ×3 (08:54→20:53)
[2021-04-10] MEDS: ASPIRIN 81 MG ECTAB PO SCH (08:54)
[2021-04-10] MEDS: DOCUSATE SODIUM 100 MG CAP PO SCH ×2 (08:54→20:57)
[2021-04-10] MEDS: POLYETHYLENE (MIRALAX) 17 GM PACK PO SCH ×2 (08:55→16:58)
[2021-04-10] MEDS: clonazePAM 0.5 MG TAB PO SCH (08:56)
[2021-04-10] MEDS: METOPROLOL TARTRATE 25 MG TAB PO SCH ×2 (09:00→20:53)
[2021-04-10] MEDS: ACETAMINOPHEN 325 MG TAB PO PRN ×3 (09:57→22:46)
--- NOTE | 2021-04-10 15:20 | Psychiatric Progress Note ---
Date of Service April 10, 2021 Impression / Recommendations Impression 40 yo female with chronic abdominal pain, presents with SI (initially while on SSRI) and now cross tapered to Cymbalta trial. More vocal about guilt and other stressors potentially driving somatization. She remains unable to contract for safety outside of the hospital but does appear to brighten spontaneously at times and less delay in response. 1patient reporting improvement in mood and decrease in anxiety although still reports some present around nighttime and surrounding the idea of her discharge. No changes to medication at this time. 04/08/2021atient is benefiting from increased clonazepam dose to aid with sleep and nighttime anxiety. Continues to have suicidal thoughts during the day which are unrelenting and cause her to be tearful. 04/06/21--patient seems to be improving somewhat. Acknowledging her anxiety instead of her somatic symptoms. (1) Major depressive disorder with current active episode: 04/09/21--Patient is continuing on same reguimen with some improvement. Noted to have difficult day today with extra anxiety as she was spoken to regarding her discharge. 04/05/21--reviewed care by Dr. Martinez in italics. Continue current meds and treatment plan as improving slightly and side effects are still resolving. The patient was admitted to the [facility] ([facility] inpatient mental health unit) on every 15 minute checks (behavioral with suicide precautions for safety. The patient will participate in group, recreational, and milieu therapies and will be offered additional individual and family sessions as clinically appropriate. We will plan to up titrate the dose of Cymbalta while adding Klonopin to stabilize her anxiety. Cymbalta ER 30mg PO qam, Klonopin 0.5mg BID 04/04patient possibly experiencing some GI side effects from Cymbalta, however will continue at this dose. Patient also complaining of persistent anxiety especially around nightime. Will increase clonazepam from 0.5mg twice daily to 0.5 mg every morning, 0.75mg nightly. 04/03-- Cymbalta dose increased to 60mg PO qdaily. patient seems to be tolerating well. 04/02- will continue with current dosages. Patient seems to be responding nicely to anxiolytic. Plan to increase duloxetine tomorrow. (2) Abdominal pain: 04/06/21--less somtaic focus, constipation ongoing yet resolving, was able to discuss feelings of guilt for past elective termination and how ongoing pelvic issues trigger. Inventory Assets Strengths: utilizes family support, active participant in her medical care Needs: increase insight into psychological factors contributing to her condition Risk Factors Assessment Male: No : Yes Do You Have Access To A Gun?: No Health Problems: Yes Mental Health Diagnoses: Yes Previous Attempt: No Previous Attempt; Highly Lethal: No Previous Attempt; Planned: No Previous Attempt; Didn't Tell Anyone: No Family History of Suicide: No Previous Psychiatric Hospitalization: No Smoker: No Interval History Chief Complaint "I am okay still anxious at times but feeling better.". Review of Systems Sleep Information Total Hours of Sleep: 8 Sleep Comments: pt given vistaril per rn. pt on q-15 minute checks Meal Information Percent Meal Consumed - Breakfast: 100 Percent Meal Consumed - Lunch: 50 Percent Meal Consumed - Dinner: 50 Subjective Subjective Patient was seen & assessed and interval progress reviewed with treatment team nursing and social work. She continues take the medication without issue, denying any side effects, none observed or reported. Patient is endorsing some improvement in mood although does cite some occasional anxiety especially surrounding her discharge. Patient has been participating appropriately in groups and interacting appropriately with peers. No issues with sleep or appetite at this time. Patient is denying any somatic complaints at this time. I spent 30 minutes with the patient, 50% of which was dedicated to counselling and coordination of care. Physical Exam Psychiatric Orientation: alert and oriented x 3 Apperance: appropriately groomed Eye Contact: + fair eye contact Motor Behavior: no abnormal motor movements Speech: normal rate/rhythm/volume of speech Affect: + depressed affect, + anxious affect and + flat affect Mood: + depressed mood and + anxious mood Thought Process: goal directed thought process Thought Content: reality based without delusions Suicidal Thoughts: denies suicidal thoughts Homicidal Thoughts: denies homicidal thoughts Hallucinations: no auditory hallucinations Cognition: recent memory grossly intact Estimated Intelligence: average estimated intelligence Insight: + fair insight Judgement: + fair judgement Vital Signs (Past 24 Hours) Last Vital Signs Temp 36.7 C 04/10/21 06:00 Pulse 108 H 04/10/21 09:02 Resp 16 04/10/21 06:00 BP 113/81 04/10/21 09:02 Pulse Ox 100 04/06/21 06:23 Results & Data ([facility]) Current Inpatient Medications Current Inpatient Medications: Current Inpatient Medications Acetaminophen (Acetaminophen 325 Mg Tab) 650 mg PO Q4H PRN PRN Reason: Headache or Minor Fever Stop: 05/01/21 11:23 Last Admin: 04/10/21 09:57 Dose: 650 mg Documented by: Al Hydrox/Mg Hydrox/Simethicone (Aluminum/Magnesium Susp 30 Ml Udc) 30 ml PO Q4H PRN PRN Reason: GI Upset Stop: 05/01/21 11:23 Aspirin (Aspirin 81 Mg Ectab) 81 mg PO QAM [facility] Stop: 05/02/21 08:59 Last Admin: 04/10/21 08:54 Dose: 81 mg Documented by: Bismuth Subsalicylate (Bismuth Subsalicylate Liqd 236 Ml) 15 ml PO PRN PRN PRN Reason: Loose Stool Stop: 05/01/21 11:23 Clonazepam (Clonazepam 0.5 Mg Tab) 0.5 mg PO QAM [facility] Stop: 05/05/21 08:59 Last Admin: 04/10/21 08:56 Dose: 0.5 mg Documented by: Clonazepam (Clonazepam 1 Mg Tab) 1 mg PO DAILY@1900 [facility] Stop: 05/07/21 18:59 Last Admin: 04/09/21 19:00 Dose: 1 mg Documented by: Docusate Sodium (Docusate Sodium 100 Mg Cap) 100 mg PO BID [facility] Stop: 05/03/21 20:59 Last Admin: 04/10/21 08:54 Dose: 100 mg Documented by: Duloxetine HCl (Duloxetine Hcl 60 Mg Cap) 60 mg PO DAILY [facility] Stop: 05/03/21 08:59 Last Admin: 04/10/21 08:54 Dose: 60 mg Documented by: Gabapentin (Gabapentin 600 Mg Tab) 600 mg PO TID [facility] Stop: 05/01/21 13:59 Last Admin: 04/10/21 14:25 Dose: 600 mg Documented by: Hydroxyzine HCl (Hydroxyzine Hcl 25 Mg Tab) 50 mg PO HSZ PRN PRN Reason: Insomnia Stop: 05/01/21 11:23 Last Admin: 04/06/21 22:17 Dose: 50 mg Documented by: Hydroxyzine HCl (Hydroxyzine Hcl 25 Mg Tab) 25 mg PO Q4H PRN PRN Reason: Anxiety Stop: 05/01/21 11:23 Last Admin: 04/09/21 20:57 Dose: 25 mg Documented by: Magnesium Hydroxide (Magnesium Hydroxide Susp 30 Ml Udc) 30 ml PO BID PRN PRN Reason: Constipation Stop: 05/01/21 11:23 Metoprolol Tartrate (Metoprolol Tartrate 25 Mg Tab) 25 mg PO BID [facility] Stop: 05/03/21 09:14 Last Admin: 04/10/21 09:00 Dose: 25 mg Documented by: Non-Formulary Medication (Non-Formulary Patient's Own Med) 1 ea PO HS [facility] Stop: 05/08/21 21:59 Last Admin: 04/09/21 20:57 Dose: 1 ea Documented by: Ondansetron HCl (Ondansetron 4 Mg Od Tab) 4 mg PO Q8H PRN PRN Reason: Nausea And Vomiting Stop: 05/01/21 13:58 Last Admin: 04/04/21 20:46 Dose: 4 mg Documented by: Polyethylene Glycol (Polyethylene (Miralax) 17 Gm Pack) 17 gm PO BIDM [facility] Stop: 05/06/21 17:44 Last Admin: 04/10/21 08:55 Dose: 17 gm Documented by: Sodium Chloride (Sodium Chloride 0.65% Na Soln 45 Ml ([place])) 1 - 2 sprays NA PRN PRN PRN Reason: Nasal Dryness/Congestion Stop: 05/01/21 11:23 Mental Health & Subst Abuse Tx Psychiatrist Name of Psychiatrist: [facility] Psychiatrist's Date of Appointment with Psychiatrist: 04/30/21 Time of Appointment with Psychiatrist: 9am Psychiatric Appointment Comment: via D[employer]imity (virtual) Therapist Name of Therapist: [facility] Therapist's Date of Therapist Appointment: 04/11/21 Time of Therapist Appointment: 11:45am Therapy Appointment Comment: by phone Altitude Chamber Technician Name of Altitude Chamber Technician: none Post Discharge Appointments Primary Care Physician Name Of Family Doctor: [facility] - Dr. Han Primary [facility] Date of Appointment with PCP: 04/19/21 Time of Appointment with PCP: 9:15 am Provider Appointment Comment: [facility] [place] [address], Hilton Specialist Name of Specialist: [facility] Specialty Care: [facility] Phone Number for Specialist: [phone] Date of Appointment with Specialist: 04/16/21 Time of Appointment with Specialist: 9:45 Specialty Appointment Comment: [id number] [place] [address] Other #1: Name of Aftercare Appointment: [facility] (GI)- Dr. Ziegler Phone Number of Aftercare Appointment: Date of Aftercare Appointment: 04/15/21 Time of Aftercare Appointment: 2pm Aftercare Appointment Comment: [address] [place] [address] Contact Information Discharge Discharge Address: [address] [place] [address] (1) Major depressive disorder with current active episode Major depression recurrence: unspecified whether recurrent Major depression episode severity: severe Psychotic features: without psychotic features Qualified Code(s): F32.2 - Major depressive disorder, single episode, severe without psychotic features (2) Abdominal pain Abdominal location: lower abdomen, unspecified Qualified Code(s): R10.30 - Lower abdominal pain, unspecified
[2021-04-10] MEDS: clonazePAM 1 MG TAB PO SCH (19:54)
[2021-04-10] MEDS: NON-FORMULARY PATIENT'S OWN MED PO SCH (20:53)
[2021-04-10] MEDS: hydrOXYzine HCl 25 MG TAB PO PRN (22:46)
[2021-04-11] MEDS: DOCUSATE SODIUM 100 MG CAP PO SCH (09:00)
[2021-04-11] MEDS: DULoxetine HCL 60 MG CAP PO SCH (09:00)
[2021-04-11] MEDS: METOPROLOL TARTRATE 25 MG TAB PO SCH (09:00)
[2021-04-11] MEDS: clonazePAM 0.5 MG TAB PO SCH (09:00)
[2021-04-11] MEDS: GABAPENTIN 600 MG TAB PO SCH (09:00)
[2021-04-11] MEDS: ASPIRIN 81 MG ECTAB PO SCH (09:00)
[2021-04-11] MEDS: POLYETHYLENE (MIRALAX) 17 GM PACK PO SCH (09:01)
[2021-04-11] MEDS: ACETAMINOPHEN 325 MG TAB PO PRN (09:07)
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
== END 2021-04-11 10:20 | disposition home or self-care (01) | DRG 885 ==
LOC: 3S 11:02